=== PATIENT | female | born 1925 | race Caucasian/White ===

== ENCOUNTER 2016-07-11 20:23 | Inpatient (IN) | payer MEDICARE ==
[~2016-07-11] VITALS: Ht 157.5 cm; Wt 59.6 kg
[~2016-07-11 20:23] MED LIST: BUME1TAB PO; CARV6.252 PO; DOCU1CAP39 PO; LEVA500T PO; LISI-363 PO; SIMV10 PO; VITA-13 PO; WARF2TAB PO
[2016-07-11 20:46] VITALS: BP 159/78; PULSE 73; RESP 20; TEMP 97.4; O2SAT 96
[2016-07-11 20:52] VITALS: BP 159/78; PULSE 78; RESP 20; TEMP 97.4; O2SAT 96
[2016-07-11] MEDS ORDERED: SODIUM CHLORIDE 0.9% FLUSH 10 ML FLUSH IVF PRN ×2 (21:30→23:30)
--- NOTE | 2016-07-11 21:37 | PD ---
HPI Chief Complaint: short of breath Time Seen by Provider: 21:19 Travel History International Travel<30 days: No Contact w/Intl Traveler<30days: No Traveled to known affect area: No History of Present Illness HPI The patient is an 89-year-old female who complains of shortness of breath for approximately 2 weeks. She states she can walk about 50 feet and she gets short of breath. She has had bilateral leg edema for about 12 months. She does have a history of congestive heart failure and sees Dr. Horne for her heart problems. Yesterday she was started on hydralazine for her blood pressure. She does take Coumadin for her chronic atrial fibrillation. For the past 2 weeks he has had some chest discomfort. She denies any nausea or vomiting now but states when she was coughing she did get slightly nauseated. She does not smoke. She does not have any orthopnea. She denies any fever. She states she is taking her Bumex correctly. She does have a history of renal problems. She does have a pacemaker. The patient's cough is very minimal and is nonproductive. She denies any chills. She states she had her pneumonia shot. PFSH Past Medical History Hx Anticoagulant Therapy: Yes (COUMADIN ) Arthritis: Yes Autoimmune Disease: No Heart Rhythm Problems: No Cancer: No Cardiovascular Problems: Yes High Cholesterol: Yes Chest Pain: No Congestive Heart Failure: Yes Diminished Hearing: No Endocrine: No Genitourinary: Yes Hypertension: Yes Immune Disorder: No Kidney Stones: No Medical other: Yes (LUMPECTOMY LEFT BREAST) Musculoskeletal: Yes Neurologic: Yes Psychiatric: No Reproductive: No Respiratory: No Integumentary: Yes (SKIN CA OF NOSE - RECIEVING RADIATION THERAPY) Radiation Therapy: Yes (SKIN CA OF NOSE - CURRENT) Renal Failure: Yes (RENAL ARTERY ANGIOPLASTY ) Tetanus Vaccination: Unknown Influenza Vaccination: Yes ?: Not Past Surgical History Abdominal Surgery: No Body Medical Devices: "shims" in her back between a few discs" Cardiac Surgery: Yes (SURGERY ON CAROTID ARTERIES bilateral ) Coronary Stent: Yes (LEFT AND RIGHT CAROTID) Ear Surgery: No Eye Surgery: Yes (RIGHT CATARACT) Genitourinary Surgery: Yes (RENAL ARTERY ANGIOPLASTY) Gynecologic Surgery: Yes (HYSTERECTOMY) Hysterectomy: Yes Oral Surgery: No Pacemaker: Yes Thoracic Surgery: No Tonsillectomy: Yes Other Surgery: Yes (L. LUMPECTOMY ) Social History Alcohol Use: No Tobacco Use: No Substance Use: No Allergies-Medications (Allergen,Severity, Reaction): Uncoded Allergies: AMLOPDIPINE (Allergy, Severe, Swelling, 07/11/16) Reported Meds & Prescriptions Reported Meds & Active Scripts Active Reported Latanoprost Opth Drops (Latanoprost) 0.005% Drops 1 Drop EACH EYE HS Refrigerate until opened. Preservision Areds 2 (Multiple Vitamins W/ Minerals) 1 Cap 1 Cap PO DAILY Vitamin D-1000 (Cholecalciferol) 1,000 Unit Tab 1,000 Units PO DAILY Warfarin 2 Mg Tab 2 Mg PO DAILY Bumetanide 1 Mg Tab 1 Mg PO DAILY Lisinopril 20 Mg Tab 20 Mg PO BID Carvedilol 12.5 Mg Tab 12 Mg PO BID Hydralazine (Hydralazine HCl) 10 Mg Tab 10 Mg PO TID Take with a meal Review of Systems Except as stated in HPI: all other systems reviewed are Neg Physical Exam Narrative GENERAL: The patient is alert, oriented 3 in no respiratory distress. Her vital signs show blood pressure 159/78 but are otherwise normal. SKIN: Warm and dry. HEAD: Atraumatic. Normocephalic. EYES: Pupils equal and round. No scleral icterus. No injection or drainage. ENT: No nasal bleeding or discharge. Mucous membranes pink and moist. NECK: Trachea midline. No JVD. CARDIOVASCULAR: Regular rhythm with a rate of approximately 70. No murmur appreciated. RESPIRATORY: No accessory muscle use. Clear to auscultation. Breath sounds equal bilaterally. No crackles are heard. GASTROINTESTINAL: Abdomen soft, non-tender, nondistended. Hepatic and splenic margins not palpable. MUSCULOSKELETAL: No obvious deformities. No clubbing. No cyanosis. There is 1 + bilateral lower extremity edema. NEUROLOGICAL: Awake and alert. No obvious cranial nerve deficits. Motor grossly within normal limits. Normal speech. PSYCHIATRIC: Appropriate mood and affect; insight and judgment normal. Data Data Last Documented VS Vital Signs Date Time Temp Pulse Resp B/P Pulse Ox O2 Delivery O2 Flow Rate FiO2 07/11/16 22:34 18 95 Nasal Cannula 2 07/11/16 22:34 66 147/55 07/11/16 20:52 97.4 Orders Electrocardiogram (07/11/16 21:28) B-Type Natriuretic Peptide (07/11/16 21:28) Ckmb (Isoenzyme) Profile (07/11/16 21:28) Complete Blood Count With Diff (07/11/16:) Comprehensive Metabolic Panel (07/11/16:) Magnesium (Mg) (07/11/16:28) Prothrombin Time / Inr (Pt) (07/11/16:28) Troponin I (07/11/16:28) Ecg Monitoring (07/11/16:) Iv Access Insert/Monitor (07/11/16:28) Oximetry (07/11/16:28) Oxygen Administration (07/11/16:) Sodium Chloride 0.9% Flush (Ns Flush) (07/11/16 21:30) Chest, Pa & Lat (07/11/16:28) Bumetanide Inj (Bumex Inj) (07/11/16 21:45) CKMB (07/11/16 21:10) CKMB% (07/11/16 21:10) Labs Laboratory Tests Test 07/11/16 21:10 White Blood Count 9.1 TH/MM3 Red Blood Count 3.71 MIL/MM3 Hemoglobin 11.7 GM/DL Hematocrit 34.6 % Mean Corpuscular Volume 93.2 FL Mean Corpuscular Hemoglobin 31.5 PG Mean Corpuscular Hemoglobin 33.8 % Concent Red Cell Distribution Width 13.7 % Platelet Count 144 TH/MM3 Mean Platelet Volume 8.0 FL Neutrophils (%) (Auto) 68.4 % Lymphocytes (%) (Auto) 16.6 % Monocytes (%) (Auto) 13.9 % Eosinophils (%) (Auto) 0.7 % Basophils (%) (Auto) 0.4 % Neutrophils # (Auto) 6.2 TH/MM3 Lymphocytes # (Auto) 1.5 TH/MM3 Monocytes # (Auto) 1.3 TH/MM3 Eosinophils # (Auto) 0.1 TH/MM3 Basophils # (Auto) 0.0 TH/MM3 CBC Comment DIFF FINAL Differential Comment Prothrombin Time 43.6 SEC Prothromb Time International 3.7 RATIO Ratio Sodium Level 131 MEQ/L Potassium Level 3.6 MEQ/L Chloride Level 92 MEQ/L Carbon Dioxide Level 26.1 MEQ/L Anion Gap 13 MEQ/L Blood Urea Nitrogen 19 MG/DL Creatinine 1.00 MG/DL Estimat Glomerular Filtration 52 ML/MIN Rate Random Glucose 103 MG/DL Calcium Level 9.1 MG/DL Magnesium Level 1.6 MG/DL Total Bilirubin 1.7 MG/DL Aspartate Amino Transf 32 U/L (AST/SGOT) Alanine Aminotransferase 17 U/L (ALT/SGPT) Alkaline Phosphatase 114 U/L Total Creatine Kinase 101 U/L Creatine Kinase MB 1.3 NG/ML Troponin I 0.02 NG/ML B-Type Natriuretic Peptide 896 PG/ML Total Protein 7.0 GM/DL Albumin 3.3 GM/DL [facility] Medical Decision Making Medical Screen Exam Complete: Yes Emergency Medical Condition: Yes Medical Record Reviewed: Yes Interpretation(s) The EKG shows ventricular pacing at a rate of approximately [address] elevation or depression. The troponin I is normal and the cardiac enzymes are normal. The BNP is 896. The complete metabolic profile shows a sodium of 131, BUN 19, total bilirubin of 1.7 and albumen of 3.3 but is otherwise unremarkable. The CBC shows a hematocrit of 34.6 and platelet count of 144,000 but is otherwise unremarkable. The chest x-ray was compared to October 182015 and this shows an interval development of bilateral pleural effusions and right lung base consolidation/compressive collapse. Differential Diagnosis Congestive heart failure, anemia, electrolyte disorder, acute coronary syndrome , other metabolic disorder, pneumonia, pulmonary embolushighly unlikely Narrative Course The pleural effusions and consolidation are significant. The patient does have shortness of breath and this is likely to be from congestive heart failure and did not pneumonia. Patient denies any history of fever or cough. Plan: The patient was discussed with Michael JARRELL and he instructed me to 23 hour observation the patient to Dr. Adan. Diagnosis Primary Impression: CHF (congestive heart failure) Additional Impressions: Bilateral pleural effusion Atelectasis of right lung Exertional dyspnea Admitting Information Admitting Physician Requests: Observation Perfecto Isaacs MD Jul 11, 2016 21:37
[2016-07-11] MEDS ORDERED: VITA1000 PO (21:44)
[2016-07-11] MEDS ORDERED: HYDR10TA23 PO (21:44)
[2016-07-11] MEDS ORDERED: CARV12.52 PO (21:44)
[2016-07-11] MEDS ORDERED: LATA0.002 EACH EYE (21:44)
[2016-07-11] MEDS ORDERED: PRESCAP5 PO (21:44)
[2016-07-11] MEDS ORDERED: WARF4TAB51 PO (21:44)
[2016-07-11] MEDS ORDERED: BUME1TAB PO (21:44)
[2016-07-11] MEDS ORDERED: LISI-515 PO (21:44)
[2016-07-11 21:45] VITALS: O2SAT 93
[2016-07-11] MEDS ORDERED: BUMETANIDE INJ 1 MG/4 ML VIAL IV PUSH ONE (21:45)
[2016-07-11 21:51] LABS: AUTOMATED NEUTROPHIL # 6.2 TH/MM3 (1.8-7.7); BASOPHIL % 0.4 % (0.0-2.0); EOSINOPHIL # 0.1 TH/MM3 (0-0.4); EOSINOPHIL % 0.7 % (0.0-4.0); HEMATOCRIT 34.6 % (35.0-46.0); HEMO FLAGS DIFF FINAL; LYMPH % 16.6 % (9.0-44.0); LYMPHOCYTE # 1.5 TH/MM3 (1.0-4.8); MEAN CELL VOLUME 93.2 FL (80.0-100.0); MEAN CORPUSCULAR HEMOGLOBIN 31.5 PG (27.0-34.0); MEAN CORPUSCULAR HGB CONC 33.8 % (32.0-36.0); MONO % 13.9 % (0.0-8.0); NEUT % 68.4 % (16.0-70.0); PLATELET COUNT 144 TH/MM3 (150-450); RED BLOOD COUNT 3.71 MIL/MM3 (4.00-5.30); RED CELL DISTRIBUTION WIDTH 13.7 % (11.6-17.2); WHITE BLOOD COUNT 9.1 TH/MM3 (4.0-11.0)
[2016-07-11 22:00] LABS: CHLORIDE 92 MEQ/L (98-107); POTASSIUM 3.6 MEQ/L (3.5-5.1); SODIUM (NA) 131 MEQ/L (136-145)
[2016-07-11 22:02] VITALS: BP 125/57; PULSE 63; RESP 20; O2SAT 94
[2016-07-11 22:03] LABS: ANION GAP 13 MEQ/L (5-15); BICARBONATE 26.1 MEQ/L (21.0-32.0); BLOOD UREA NITROGEN 19 MG/DL (7-18); MAGNESIUM 1.6 MG/DL (1.5-2.5)
[2016-07-11 22:06] LABS: ALT (GPT) 17 U/L (10-53); AST (GOT) 32 U/L (15-37); GLOMERULAR FILTRATION RATE 52 ML/MIN (>89)
[2016-07-11 22:08] LABS: TOTAL BILIRUBIN ADULT 1.7 MG/DL (0.2-1.0)
[2016-07-11 22:09] LABS: ALKALINE PHOSPHATASE 114 U/L (45-117); CREATINE KINASE 101 U/L (26-192)
[2016-07-11 22:21] LABS: CKMB 1.3 NG/ML (0.5-3.6)
--- NOTE | 2016-07-11 22:25 | RADHPO ---
EXAM DATE/TIME: 07/11/2016 21:42 [facility] COMPARISON: CHEST SINGLE AP, October 19, 2015, 16:56. INDICATIONS : Patient states short of breath since change in blood pressure medication. MEDICAL HISTORY : Hypertension. Cancer, skin SURGICAL HISTORY : Pacemaker. ENCOUNTER: Initial ACUITY: 2 weeks PAIN SCORE: 2/10 LOCATION: Bilateral chest FINDINGS: There is a moderately size right pleural effusion and small left pleural effusion not present previou sly. Pacer wire and cardiomegaly have not changed. Right lung base consolidation and/or compressive c ollapse is also seen. CONCLUSION: Interval development of bilateral pleural effusions and right lung base consolidation and/or compress ander collapse. Anne Robledo MD on July 11, 2016 at 22:21 Board Certified Radiologist. This report was verified electronically.
[2016-07-11 22:34] VITALS: BP 147/55; PULSE 66; RESP 16; O2SAT 95
[2016-07-11 22:52] LABS: INTERNATIONAL NORMALIZED RATIO 3.7 RATIO; PROTHROMBIN TIME - PATIENT 43.6 SEC (9.8-11.6)
[2016-07-11] MEDS ORDERED: BUMETANIDE 1 MG TAB PO ONE (23:15)
[2016-07-11] MEDS ORDERED: SODIUM CHLORIDE 0.9% FLUSH 10 ML FLUSH IV FLUSH PRN (23:15)
[2016-07-12] VITALS (12 sets, daily range): BP systolic 133–154; BP diastolic 63–81; PULSE 65–71; RESP 16–20; TEMP 96.2–97.8; O2SAT 92–96
[2016-07-12 06:57] LABS: CHLORIDE 94 MEQ/L (98-107); SODIUM (NA) 133 MEQ/L (136-145)
[2016-07-12 07:03] LABS: ANION GAP 10 MEQ/L (5-15); BICARBONATE 28.6 MEQ/L (21.0-32.0); BLOOD UREA NITROGEN 20 MG/DL (7-18); MAGNESIUM 1.5 MG/DL (1.5-2.5)
[2016-07-12 07:06] LABS: ALT (GPT) 14 U/L (10-53); AST (GOT) 33 U/L (15-37)
[2016-07-12 07:07] LABS: GLOMERULAR FILTRATION RATE 55 ML/MIN (>89)
[2016-07-12 07:08] LABS: TOTAL BILIRUBIN ADULT 1.5 MG/DL (0.2-1.0)
[2016-07-12 07:09] LABS: ALKALINE PHOSPHATASE 98 U/L (45-117)
[2016-07-12 07:15] LABS: INTERNATIONAL NORMALIZED RATIO 3.5 RATIO; PROTHROMBIN TIME - PATIENT 40.8 SEC (9.8-11.6)
[2016-07-12 07:23] LABS: POTASSIUM 3.6 MEQ/L (3.5-5.1)
[2016-07-12] MEDS ORDERED: BUMETANIDE INJ 1 MG/4 ML VIAL IV PUSH ONE (07:45)
--- NOTE | 2016-07-12 07:52 | MB ---
cc: WENDY CONNELLY MD DATE OF CONSULTATION 07/12/2016 REASON FOR CONSULTATION CHF and dyspnea. HISTORY OF PRESENT ILLNESS Ms. Chirinos is an 89-year-old female who does have a history of hypertension, hyperlipidemia, CAD, atrial fibrillation. She presented with progressive shortness of breath, edema and weight gain over the last period two to three weeks. She notes that this started after the amlodipine was added to her medication regimen. The amlodipine was stopped several days ago and hydralazine was started. Her blood pressure is good. However, she continued to have progressive symptoms and thus presented to the emergency room. She denies any chest pain or palpitations. PAST MEDICAL HISTORY 1. Hypertension. 2. Hyperlipidemia. 3. CHF. 4. CAD. 5. Atrial fibrillation. 6. Chronic kidney disease. 7. Valvular heart disease. 8. Bilateral carotid endarterectomies. 9. Renal stents. 10. Lumpectomy. 11. Cataract surgery. ALLERGIES No known drug allergies. OUTPATIENT MEDICATIONS 1. Lisinopril 20 mg b.i.d. 2. Coumadin 2 mg a day. 3. Coreg 12.5 mg a day. 4. Hydralazine 10 mg q. 8. 5. Bumex 1 mg daily. 6. Vitamins. 7. Lantanaprost. 8. Vitamin D. SOCIAL HISTORY The patient is a former smoker. FAMILY HISTORY Positive for CAD. REVIEW OF SYSTEMS The patient has had a nonproductive cough. Other than this and what is mentioned in the HPI, all 12 systems are negative. PHYSICAL EXAMINATION VITAL SIGNS: 68, 136/63, 94. GENERAL: She is a thin female who is in no apparent distress. NECK: Her neck is free from JVD. LUNGS: Rales on the left base. CARDIOVASCULAR EXAMINATION: She has a 2/6 systolic murmur. No rubs or gallops are appreciated. ABDOMEN: The abdomen is soft. EXTREMITIES: The extremities have 1+ edema. LAB VALUES Significant for a BNP of 896. Troponin of 0.03. Sodium of 131 and a creatinine of 1.0. CHEST X-RAY Bilateral pleural effusions and a right lung base consolidation. EKG Shows paced rhythm. IMPRESSIONS Dyspnea- component CHF, consider possible contributions from COPD vs bronchitis vs pneumonia vs other Acute CHF - We will continue diuresis. Fluid and sodium restrictions will be added. The patient is currently on a beta-carlos. I do not have an ECHO from the office or see on from the hospital => ECHO. Priscila Lion/JAKI /7:28 AM /7:37 AM ROSIO
[2016-07-12] MEDS: CHOLECALCIFEROL (VIT D3) 1000 UNIT TAB PO SCH (08:20)
[2016-07-12] MEDS: LISINOPRIL 20 MG TAB PO SCH ×2 (08:20→21:29)
[2016-07-12] MEDS: POTASSIUM CHLORIDE 10 MEQ CONTROLLED RELEASE TAB PO SCH ×2 (08:21→21:29)
[2016-07-12] MEDS: hydrALAZINE HCL 10 MG TAB PO SCH ×3 (08:23→21:29)
[2016-07-12] MEDS: SODIUM CHLORIDE 0.9% FLUSH 10 ML FLUSH IVF SCH ×2 (08:23→21:29)
[2016-07-12] MEDS ORDERED: DO NOT ADM ANY ANTICOAGULANT DRUGS XX PRN (08:45)
[2016-07-12] MEDS ORDERED: hydrALAZINE HCL 10 MG TAB PO SCH (09:00)
[2016-07-12] MEDS ORDERED: SODIUM CHLORIDE 0.9% FLUSH 10 ML FLUSH IVF SCH (09:00)
[2016-07-12] MEDS ORDERED: CARVEDILOL 12.5 MG TAB PO SCH (09:00)
--- NOTE | 2016-07-12 11:22 | MH ---
cc: ZEFERINO COY MD DATE OF ADMISSION 07/11/2016 CHIEF COMPLAINT Shortness of breath HISTORY OF PRESENT ILLNESS This is an 89-year-old female with a past medical-surgical history significant for arthritis, history of hyperlipidemia, congestive heart failure, lumpectomy of the left breast, history of hypertension, history of skin cancer of the nose treated with received radiation therapy, renal artery angioplasty, surgery for the carotid artery bilateral, right cataract surgery, hysterectomy, left lumpectomy, tonsillectomy, pacemaker placement who came to the ER at [facility] complaining of shortness of breath going on for the last two weeks. She stated that she can walk about 50 feet and gets short of breath. She has had bilateral leg edema for about 12 months. She does have a history of congestive heart failure and sees Dr. Horne. She was started on hydralazine for her blood pressure. She does take Coumadin for chronic atrial fibrillation. She has some chest discomfort. She denies any nausea or vomiting, but states when she is coughing, she did get slightly nauseated. She does not smoke. She does not have any orthopnea. She denies any fever or chills. She is taking her Bumex regularly. She does have a history of renal problems, has a pacemaker placement. She has a very minimal nonproductive cough. Other than that, nothing significant. PAST MEDICAL/SURGICAL HISTORY As dictated above. SOCIAL HISTORY She denies smoking, drinking or taking any drugs. Lives at home alone. 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 FAMILY HISTORY Significant for coronary artery disease. ALLERGIES AMLODIPINE MEDICATIONS Include: 1. Latanoprost ophthalmic drops one drop each eye at bedtime 2. PreserVision AREDS 3. Multivitamin p.o. daily 4. Vitamin D 1000 units p.o. daily 5. Coumadin 2 mg p.o. daily 6. Bumetanide 1 mg p.o. daily 7. Lisinopril 20 mg twice a day 8. Carvedilol 12.5 mg twice a day 9. Hydralazine 10 mg p.o. t.i.d. REVIEW OF SYSTEMS Positive for shortness of breath, mild cough, nonproductive, but when I examined the patient, she feels much better. PHYSICAL EXAMINATION This is an 89-year female sitting on the bed not in acute distress. VITAL SIGNS: Temperature 96.8, heart rate 68, respiration 20, blood pressure 147/72, O2 saturation 95% on two liters nasal cannula. HEENT: Normocephalic, atraumatic. EOMI. PERRL. Oral mucosa moist. NECK: Supple. No visible thyromegaly or neck mass. Trachea is central. CARDIOVASCULAR: Regular rate and rhythm. Respirations, bilaterally mild crackles, decreased air entry bilaterally. ABDOMEN: Soft, nontender. Bowel sounds audible. EXTREMITIES: No cyanosis or clubbing. Full range of motion of all extremities. NEUROLOGIC: Awake, alert and oriented x4. No focal deficits. SKIN: Warm and dry. PSYCH: The patient is cooperative. Mood and affect are normal. LABORATORY DATA CBC shows a WBC count of 9.1, RBC count 3.71 low, hemoglobin 11.7, hematocrit 34.6 low, platelet count 144 low. BMP totally unremarkable except for sodium 133 low, chloride 94 low, BUN 20 high, GFR 55 low, glucose random 73 low, total bilirubin 1.5 high, total protein 6.2 low, albumin 2.9 low. Cardiogram Troponin I is 0.02, 0.03, and 0.03. PT 40.8, INR 3.5. Chest x-ray was done shows interval development of bilateral pleural effusion and right lung base consolidation and/or compressive collapse. ASSESSMENT/PLAN 1. This is an 89-year female who came to the ER diagnosed with shortness of breath most probably secondary to CHF exacerbation, most likely acute on chronic systolic heart failure. Strict I's and O's, daily weights, fluid restriction to 1.5 liters a day, salt restriction to 2 grams a day. The patient is on a beta carlos, checking 2-D echocardiogram, cardiology on the case. Further recommendation per cardiology. 2. History of atrial fibrillation rate controlled. The patient is on Coumadin. INR 3.5, holding Coumadin. 3. He has a history of hypertension. Continue home medication. Monitor blood pressure. 4. Hyponatremia, we will monitor sodium and replace. 5. DVT prophylaxis. The patient is on Coumadin. 6. GI prophylaxis, Protonix 40 mg p.o. daily. 7. We are going to manage the patient on a daily basis and make recommendations on a daily basis. Zeferino Coy MD EA/ASHLEY /10:53 AM /11:09 AM
--- NOTE | 2016-07-12 11:42 | EKG ---
Date Performed: 07/11/2016 Time Performed: 21:42:38 PTAGE: 89 years EKG: Ventricular pacing Pacemaker rhythm - no further analysis Abnormal ECG PREVIOUS TRACING : 10/17/2015 11.59 DOCTOR: Jose Soni Interpretating Date/Time 07/12/2016 11:41:50
[2016-07-12] MEDS: MULTIVITAMINS/MINERALS THERAPEUTIC TAB PO SCH (12:31)
[2016-07-12] MEDS: BUMETANIDE 1 MG TAB PO SCH (12:32)
[2016-07-12] MEDS: PANTOPRAZOLE SOD 40 MG DELAYED RELEASE TAB PO SCH (12:32)
--- NOTE | 2016-07-12 20:02 | EC ---
Study Study Date:07/12/2016 STUDY CONCLUSIONS SUMMARY - Left ventricle: The cavity size was normal. Wall thickness was normal. Systolic function was normal. The estimated ejection fraction was 60%. Wall motion was normal; there were no regional wall motion abnormalities. - Mitral valve: Mild to moderate regurgitation. - Left atrium: The atrium was dilated. - Right ventricle: The cavity size was dilated. Wall thickness was normal. - Right atrium: The atrium was dilated. - Tricuspid valve: Severe regurgitation. - Pulmonary arteries: Systolic pressure was mildly increased. PA peak pressure: 46mm Hg (S). If LV function is below 40, please consider prescribing an ACEI or ARB or document rationale for non-use. PROCEDURE DATA STUDY STATUS: Elective. Procedure: Transthoracic echocardiography. Image quality was good. Scanning was performed from the parasternal, apical, and subcostal acoustic windows. Study completion: The patient tolerated the procedure well. Transthoracic echocardiography. M-mode, complete 2D, complete spectral Doppler, and color Doppler. Height: Height: 62in. Weight: Weight: 134.7lb. Body mass index: BMI: 24.7kg/m^2. Body surface area: BSA: 1.62m^2. Patient status: Inpatient. CARDIAC ANATOMY LEFT VENTRICLE: The cavity size was normal. Wall thickness was normal. Systolic function was normal. The estimated ejection fraction was 60%. Wall motion was normal; there were no regional wall motion abnormalities. AORTIC VALVE: Trileaflet; normal thickness leaflets. Doppler: Transvalvular velocity was within the normal range. There was no stenosis. No regurgitation. Valve area: 1.06cm^2 (Vmax). Indexed valve area: 0.65cm^2/m^2 (Vmax). Mean gradient: 4mm Hg (S). Peak gradient: 15mm Hg (S). AORTA: Aortic root: The aortic root was normal in size. MITRAL VALVE: Structurally normal valve. Doppler: Transvalvular velocity was within the normal range. There was no evidence for stenosis. Mild to moderate regurgitation. LEFT ATRIUM: The atrium was dilated. RIGHT VENTRICLE: The cavity size was dilated. Wall thickness was normal. PULMONIC VALVE: Doppler: Transvalvular velocity was within the normal range. There was no evidence for stenosis. No regurgitation. TRICUSPID VALVE: Structurally normal valve. Doppler: Transvalvular velocity was within the normal range. Severe regurgitation. PULMONARY ARTERY: The main pulmonary artery was normal-sized. Systolic pressure was mildly increased. RIGHT ATRIUM: The atrium was dilated. PERICARDIUM: There was no pericardial effusion. SYSTEMIC VEINS: Inferior vena cava: The vessel was normal in size. Patient weight: 134.7lb _Ejection fraction:_ 65-75% _Fractional shortening:_ 32% up to 5Kg 5-11.5Kg 11.6-22.9Kg 23-45Kg 45-57Kg Aortic Root 7-13 <17 13-22 17-27 17-27 LA diam 6-13 <23 24-38 33-47 37-40 RVID 10-17 7-15 7-15 7-18 8-17 LVIDd 12-22 <32 24-38 33-47 37-40 LVPW 2-4 3-6 5-7 6-8 7-8 IVS 2-4 3-6 5-7 6-8 7-8 BASIC MEASUREMENTS ADULT NORMAL Left ventricle LV internal dimension, ED, chordal *39.2 mm 43-52 level, PLAX LV internal dimension, ES, chordal 29 mm 23-38 level, PLAX Fractional shortening, chordal level, *26 % >29 PLAX LV posterior wall thickness, ED 10.1 mm IVS/LVPW ratio, ED 1.04 <1.3 Ventricular septum Septal thickness, ED 10.5 mm Aortic valve Leaflet separation *13 mm 15-26 BASIC MEASUREMENTS ADULT NORMAL Aortic valve Leaflet separation *13 mm 15-26 Aorta Root diameter, ED 27 mm 20-37 Left atrium Anterior-posterior dimension, ES *56 mm 19-40 Anterior-posterior dimension index, ES *3.46 cm/m^2 <2.2 LA/aortic root ratio 2.07 DOPPLER MEASUREMENTS ADULT NORMAL Main pulmonary artery Pressure, S *46 mm Hg =30 Aortic valve Peak velocity, S 194 cm/s Mean velocity, S 97.9 cm/s VTI, S 29.6 cm Mean gradient, S 4 mm Hg Peak gradient, S 15 mm Hg Valve area, Vmax 1.06 cm^2 Valve area index, Vmax 0.65 cm^2/m^2 Mitral valve Peak E-wave velocity 48.9 cm/s Peak A-wave velocity 111 cm/s Deceleration time *141 ms 150-230 Peak E/A ratio 0.4 Maximal regurgitant velocity 497 cm/s Tricuspid valve Regurgitant peak velocity 276 cm/s Peak RV-RA gradient, S 30 mm Hg Maximal regurgitant velocity 276 cm/s Systemic veins Estimated CVP 10 mm Hg Right ventricle RV pressure, S *46 mm Hg <30 Pulmonic valve Peak velocity, S 85.5 cm/s LEGEND: Mean values are shown as u=mean value. Asterisk (*) francois values outside specified normal range. Prepared and signed by Mary Miller [id number]
[2016-07-12] MEDS: LATANOPROST 0.005% OPHT SOLN 2.5 ML BTL EACH EYE SCH (21:28)
[2016-07-12] MEDS: CARVEDILOL 12.5 MG TAB PO SCH (21:29)
[2016-07-13] VITALS (7 sets, daily range): BP systolic 106–167; BP diastolic 66–88; PULSE 67–80; RESP 18–20; TEMP 95.8–97.6; O2SAT 90–100
[2016-07-13 05:50] LABS: AUTOMATED NEUTROPHIL # 3.6 TH/MM3 (1.8-7.7); BASOPHIL % 0.2 % (0.0-2.0); EOSINOPHIL # 0.1 TH/MM3 (0-0.4); EOSINOPHIL % 2.4 % (0.0-4.0); HEMATOCRIT 32.3 % (35.0-46.0); HEMO FLAGS DIFF FINAL; LYMPH % 21.4 % (9.0-44.0); LYMPHOCYTE # 1.3 TH/MM3 (1.0-4.8); MEAN CELL VOLUME 93.7 FL (80.0-100.0); MEAN CORPUSCULAR HEMOGLOBIN 31.3 PG (27.0-34.0); MEAN CORPUSCULAR HGB CONC 33.5 % (32.0-36.0); MONO % 16.4 % (0.0-8.0); NEUT % 59.6 % (16.0-70.0); PLATELET COUNT 134 TH/MM3 (150-450); RED BLOOD COUNT 3.45 MIL/MM3 (4.00-5.30); RED CELL DISTRIBUTION WIDTH 13.4 % (11.6-17.2)
[2016-07-13 06:09] LABS: CHLORIDE 94 MEQ/L (98-107); POTASSIUM 3.6 MEQ/L (3.5-5.1); SODIUM (NA) 132 MEQ/L (136-145)
[2016-07-13 06:16] LABS: ANION GAP 10 MEQ/L (5-15)
[2016-07-13 06:17] LABS: BLOOD UREA NITROGEN 23 MG/DL (7-18); INTERNATIONAL NORMALIZED RATIO 3.7 RATIO; PROTHROMBIN TIME - PATIENT 43.9 SEC (9.8-11.6)
[2016-07-13 06:18] LABS: AST (GOT) 28 U/L (15-37)
[2016-07-13 06:19] LABS: ALT (GPT) 15 U/L (10-53)
[2016-07-13 06:20] LABS: GLOMERULAR FILTRATION RATE 55 ML/MIN (>89); TOTAL BILIRUBIN ADULT 1.3 MG/DL (0.2-1.0)
[2016-07-13 06:21] LABS: ALKALINE PHOSPHATASE 105 U/L (45-117)
[2016-07-13] MEDS: hydrALAZINE HCL 10 MG TAB PO SCH ×3 (06:23→21:33)
--- NOTE | 2016-07-13 08:40 | HHI.PR ---
Subjective History of Present Illness Patient feel better no acute issue SOB Better d/w RN Marian stoner DC Tomorrow. Review of Systems Constitutional Constitutional: Fatigue, Weakness Vitals/Results Intake & Output 07/12/16 07/12/16 07/13/16 15:00 23:00 07:00 Intake Total 240 ml Balance 240 ml Intake Oral 240 ml # Voids 4 5 # Bowel Movements 0 0 Vital Signs Vital Signs Date Time Temp Pulse Resp B/P Pulse Ox O2 Delivery O2 Flow Rate FiO2 07/13/16 08:23 92 21 07/13/16 04:00 97.1 69 18 147/77 93 07/13/16 00:00 97.1 80 18 149/85 96 07/12/16 23:10 93 21 07/12/16 20:00 97.4 67 18 154/79 96 07/12/16 20:00 66 07/12/16 16:00 96.2 71 20 147/81 92 07/12/16 15:00 66 07/12/16 12:00 96.9 65 20 133/63 93 CBC/BMP: 07/13/16 0530 07/13/16 0530 Lab Results Laboratory Tests Test 07/12/16 07/13/16 09:40 05:30 Troponin I 0.03 NG/ML White Blood Count 6.0 TH/MM3 Red Blood Count 3.45 MIL/MM3 Hemoglobin 10.8 GM/DL Hematocrit 32.3 % Mean Corpuscular Volume 93.7 FL Mean Corpuscular Hemoglobin 31.3 PG Mean Corpuscular Hemoglobin 33.5 % Concent Red Cell Distribution Width 13.4 % Platelet Count 134 TH/MM3 Mean Platelet Volume 7.5 FL Neutrophils (%) (Auto) 59.6 % Lymphocytes (%) (Auto) 21.4 % Monocytes (%) (Auto) 16.4 % Eosinophils (%) (Auto) 2.4 % Basophils (%) (Auto) 0.2 % Neutrophils # (Auto) 3.6 TH/MM3 Lymphocytes # (Auto) 1.3 TH/MM3 Monocytes # (Auto) 1.0 TH/MM3 Eosinophils # (Auto) 0.1 TH/MM3 Basophils # (Auto) 0.0 TH/MM3 CBC Comment DIFF FINAL Differential Comment Prothrombin Time 43.9 SEC Prothromb Time International 3.7 RATIO Ratio Sodium Level 132 MEQ/L Potassium Level 3.6 MEQ/L Chloride Level 94 MEQ/L Carbon Dioxide Level 28.0 MEQ/L Anion Gap 10 MEQ/L Blood Urea Nitrogen 23 MG/DL Creatinine 0.96 MG/DL Estimat Glomerular Filtration 55 ML/MIN Rate Random Glucose 80 MG/DL Calcium Level 8.6 MG/DL Total Bilirubin 1.3 MG/DL Aspartate Amino Transf 28 U/L (AST/SGOT) Alanine Aminotransferase 15 U/L (ALT/SGPT) Alkaline Phosphatase 105 U/L Total Protein 6.3 GM/DL Albumin 3.0 GM/DL Physical Exam General General Appearance: No Acute Distress, Comfortable Eyes Eye Exam: Pupils Equal, Pupils Reactive, Sclera White, Extraocular Movement Intact Throat Throat Exam: Oral Mucosa Kake & Moist Neck Neck Exam: Neck Supple, Trachea Midline Pulmonary Resp Exam: Clear Bilaterally, Breath Sounds Equal, Diminished Breath Sounds Cardiology CV Exam: Regular, Normal Sinus Rhythm Gastrointestinal/Abdomen GI Exam: Soft, Non-Tender, Bowel Sounds Present Musculoskeletal MS Exam: Normal Tone Integumentary Skin Exam: Clear, Warm, Dry, Intact Neurologic Neuro Exam: Alert, Awake, Oriented, Speech Clear, Moving All Extremities, No Focal Deficits Psychiatric Psych Exam: Appropriate Responses PUD Prophylasis PUD Prophylaxis: Protonix Assessment/Plan Assessment/Plan ASSESSMENT/PLAN 1. This is an 89-year female who came to the ER diagnosed with shortness of breath most probably secondary to CHF exacerbation, most likely acute on chronic systolic heart failure. Strict I's and O's, daily weights, fluid restriction to 1.5 liters a day, salt restriction to 2 grams a day. The patient is on a beta carlos, checked 2-D echocardiogram, cardiology on the case. Further recommendation per cardiology. 2. History of atrial fibrillation rate controlled. The patient is on Coumadin. INR 3.5, holding Coumadin. 3. He has a history of hypertension. Continue home medication. Monitor blood pressure. 4. Hyponatremia, we will monitor sodium and replace. 5. DVT prophylaxis. The patient is on Coumadin. 6. GI prophylaxis, Protonix 40 mg p.o. daily. 7. We are going to manage the patient on a daily basis and make recommendations on a daily basis. Discussed Condition with: Patient Zeferino Muniz MD Jul 13, 2016 08:39
[2016-07-13] MEDS: CHOLECALCIFEROL (VIT D3) 1000 UNIT TAB PO SCH (08:54)
[2016-07-13] MEDS: POTASSIUM CHLORIDE 10 MEQ CONTROLLED RELEASE TAB PO SCH ×2 (08:54→21:33)
[2016-07-13] MEDS: LISINOPRIL 20 MG TAB PO SCH ×2 (08:55→21:33)
[2016-07-13] MEDS: BUMETANIDE 1 MG TAB PO SCH (08:55)
[2016-07-13] MEDS: CARVEDILOL 12.5 MG TAB PO SCH ×2 (08:55→21:33)
[2016-07-13] MEDS: PANTOPRAZOLE SOD 40 MG DELAYED RELEASE TAB PO SCH (08:55)
[2016-07-13] MEDS: SODIUM CHLORIDE 0.9% FLUSH 10 ML FLUSH IVF SCH ×2 (08:55→21:00)
[2016-07-13] MEDS: MULTIVITAMINS/MINERALS THERAPEUTIC TAB PO SCH (08:55)
[2016-07-13] MEDS ORDERED: WARFARIN SOD 2 MG TAB PO SCH (16:00)
[2016-07-13] MEDS ORDERED: BUMETANIDE 1 MG TAB PO ONE (17:45)
[2016-07-13] MEDS: LATANOPROST 0.005% OPHT SOLN 2.5 ML BTL EACH EYE SCH (22:31)
[2016-07-13] MEDS: TEMAZEPAM 15 MG CAP PO PRN (23:34)
[2016-07-14] VITALS (9 sets, daily range): BP systolic 108–142; BP diastolic 55–71; PULSE 66–86; RESP 18–20; TEMP 96–96.9; O2SAT 90–97
[2016-07-14 06:08] LABS: AUTOMATED NEUTROPHIL # 3.7 TH/MM3 (1.8-7.7); BASOPHIL % 0.7 % (0.0-2.0); EOSINOPHIL # 0.1 TH/MM3 (0-0.4); EOSINOPHIL % 2.2 % (0.0-4.0); HEMATOCRIT 34.1 % (35.0-46.0); HEMO FLAGS DIFF FINAL; LYMPH % 20.6 % (9.0-44.0); LYMPHOCYTE # 1.2 TH/MM3 (1.0-4.8); MEAN CELL VOLUME 93.4 FL (80.0-100.0); MEAN CORPUSCULAR HEMOGLOBIN 31.3 PG (27.0-34.0); MEAN CORPUSCULAR HGB CONC 33.5 % (32.0-36.0); MONO % 14.7 % (0.0-8.0); NEUT % 61.8 % (16.0-70.0); PLATELET COUNT 138 TH/MM3 (150-450); RED BLOOD COUNT 3.65 MIL/MM3 (4.00-5.30); RED CELL DISTRIBUTION WIDTH 13.8 % (11.6-17.2); WHITE BLOOD COUNT 5.9 TH/MM3 (4.0-11.0)
[2016-07-14 06:15] LABS: CHLORIDE 92 MEQ/L (98-107); INTERNATIONAL NORMALIZED RATIO 2.8 RATIO; POTASSIUM 3.5 MEQ/L (3.5-5.1); PROTHROMBIN TIME - PATIENT 32.4 SEC (9.8-11.6); SODIUM (NA) 130 MEQ/L (136-145)
[2016-07-14 06:21] LABS: ANION GAP 10 MEQ/L (5-15); BICARBONATE 28.1 MEQ/L (21.0-32.0); BLOOD UREA NITROGEN 20 MG/DL (7-18)
[2016-07-14 06:24] LABS: ALT (GPT) 16 U/L (10-53); AST (GOT) 29 U/L (15-37); GLOMERULAR FILTRATION RATE 47 ML/MIN (>89)
[2016-07-14 06:26] LABS: TOTAL BILIRUBIN ADULT 1.5 MG/DL (0.2-1.0)
[2016-07-14 06:27] LABS: ALKALINE PHOSPHATASE 104 U/L (45-117)
[2016-07-14] MEDS: hydrALAZINE HCL 10 MG TAB PO SCH ×3 (06:43→21:16)
--- NOTE | 2016-07-14 08:23 | HHI.PR ---
Subjective History of Present Illness Patient feel better no acute issue SOB Better have difficulity swallowing have h/o esophageal stenosis ..GI Consulted. Review of Systems Constitutional Constitutional: Fatigue, Weakness Throat Throat Remarks difficulity swallowing. GI/Abdomen GI/Abdomen Remarks difficulity swallowing. Vitals/Results Intake & Output 07/13/16 07/13/16 07/14/16 14:59 22:59 06:59 Intake Total 700 ml 120 ml 60 ml Output Total 250 ml Balance 700 ml -130 ml 60 ml Intake Oral 700 ml 120 ml 60 ml Output Urine Total 250 ml # Voids 5 2 2 # Bowel Movements 1 0 1 Vital Signs Vital Signs Date Time Temp Pulse Resp B/P Pulse Ox O2 Delivery O2 Flow Rate FiO2 07/14/16 08:00 96.5 75 18 122/68 92 07/14/16 04:00 96.3 86 20 108/71 97 07/14/16 00:00 96.0 74 20 138/71 91 07/13/16 20:00 92 21 07/13/16 20:00 69 07/13/16 20:00 96.0 74 20 167/88 93 07/13/16 16:00 96.0 67 19 158/79 90 07/13/16 12:00 95.8 67 20 126/66 90 CBC/BMP: 07/14/16 0445 07/14/16 0445 Lab Results Laboratory Tests Test 07/14/16 04:45 White Blood Count 5.9 TH/MM3 Red Blood Count 3.65 MIL/MM3 Hemoglobin 11.4 GM/DL Hematocrit 34.1 % Mean Corpuscular Volume 93.4 FL Mean Corpuscular Hemoglobin 31.3 PG Mean Corpuscular Hemoglobin 33.5 % Concent Red Cell Distribution Width 13.8 % Platelet Count 138 TH/MM3 Mean Platelet Volume 7.8 FL Neutrophils (%) (Auto) 61.8 % Lymphocytes (%) (Auto) 20.6 % Monocytes (%) (Auto) 14.7 % Eosinophils (%) (Auto) 2.2 % Basophils (%) (Auto) 0.7 % Neutrophils # (Auto) 3.7 TH/MM3 Lymphocytes # (Auto) 1.2 TH/MM3 Monocytes # (Auto) 0.9 TH/MM3 Eosinophils # (Auto) 0.1 TH/MM3 Basophils # (Auto) 0.0 TH/MM3 CBC Comment DIFF FINAL Differential Comment Prothrombin Time 32.4 SEC Prothromb Time International 2.8 RATIO Ratio Sodium Level 130 MEQ/L Potassium Level 3.5 MEQ/L Chloride Level 92 MEQ/L Carbon Dioxide Level 28.1 MEQ/L Anion Gap 10 MEQ/L Blood Urea Nitrogen 20 MG/DL Creatinine 1.10 MG/DL Estimat Glomerular Filtration 47 ML/MIN Rate Random Glucose 79 MG/DL Calcium Level 9.0 MG/DL Total Bilirubin 1.5 MG/DL Aspartate Amino Transf 29 U/L (AST/SGOT) Alanine Aminotransferase 16 U/L (ALT/SGPT) Alkaline Phosphatase 104 U/L Total Protein 6.6 GM/DL Albumin 3.1 GM/DL Physical Exam General General Appearance: No Acute Distress, Comfortable Eyes Eye Exam: Pupils Equal, Pupils Reactive, Sclera White, Extraocular Movement Intact Throat Throat Exam: Oral Mucosa [place] & Moist Neck Neck Exam: Neck Supple, Trachea Midline Pulmonary Resp Exam: Clear Bilaterally, Breath Sounds Equal, Diminished Breath Sounds Cardiology CV Exam: Regular, Normal Sinus Rhythm Gastrointestinal/Abdomen GI Exam: Soft, Non-Tender, Bowel Sounds Present Musculoskeletal MS Exam: Normal Tone Integumentary Skin Exam: Clear, Warm, Dry, Intact Neurologic Neuro Exam: Alert, Awake, Oriented, Speech Clear, Moving All Extremities, No Focal Deficits Psychiatric Psych Exam: Appropriate Responses PUD Prophylasis PUD Prophylaxis: Protonix Assessment/Plan Assessment/Plan ASSESSMENT/PLAN 1. This is an 89-year female who came to the ER diagnosed with shortness of breath most probably secondary to CHF exacerbation, most likely acute on chronic systolic heart failure. Strict I's and O's, daily weights, fluid restriction to 1.5 liters a day, salt restriction to 2 grams a day. The patient is on a beta carlos, checked 2-D echocardiogram, cardiology on the case. Further recommendation per cardiology. 2. History of atrial fibrillation rate controlled. The patient is on Coumadin. INR 3.5, holding Coumadin. 3. He has a history of hypertension. Continue home medication. Monitor blood pressure. 4. Hyponatremia, we will monitor sodium and replace. 5. DVT prophylaxis. The patient is on Coumadin. 6. GI prophylaxis, Protonix 40 mg p.o. daily. 7. difficulity swallowing have h/o esophageal stenosis ..GI Consulted. We are going to manage the patient on a daily basis and make recommendations on a daily basis. Discussed Condition with: Patient Zeferino Muniz MD Jul 14, 2016 08:23
[2016-07-14] MEDS: CHOLECALCIFEROL (VIT D3) 1000 UNIT TAB PO SCH (09:00)
[2016-07-14] MEDS: SODIUM CHLORIDE 0.9% FLUSH 10 ML FLUSH IVF SCH ×2 (09:00→21:00)
[2016-07-14] MEDS: CARVEDILOL 12.5 MG TAB PO SCH ×2 (09:34→21:16)
[2016-07-14] MEDS: BUMETANIDE 1 MG TAB PO SCH (09:34)
[2016-07-14] MEDS: POTASSIUM CHLORIDE 10 MEQ CONTROLLED RELEASE TAB PO SCH ×2 (09:34→21:16)
[2016-07-14] MEDS: LISINOPRIL 20 MG TAB PO SCH ×2 (09:34→21:16)
[2016-07-14] MEDS: MULTIVITAMINS/MINERALS THERAPEUTIC TAB PO SCH (09:34)
[2016-07-14] MEDS: PANTOPRAZOLE SOD 40 MG DELAYED RELEASE TAB PO SCH (09:34)
--- NOTE | 2016-07-14 16:52 | MB ---
cc: JOSE JEFFERSON M.D., EJAZ MD DATE OF CONSULTATION: 07/14/2016 REASON FOR CONSULTATION: Dysphagia. PATIENT OF: Dr. Zeferino Muniz. HISTORY OF PRESENT ILLNESS: Ms. Chirinos is an 89-year-old lady who has previous problems with gas, bloating and dysphagia and reports previous workup in [place]. She states she had an endoscopy done about two years ago in [place] with dilation and this helped her symptoms. She has been admitted here for shortness of breath secondary to congestive heart failure. The GI service has been consulted for dysphagia. She says each time she eats she feels food gets stuck in the lower part of the esophagus. She is also complaining of gas and bloating. PAST MEDICAL HISTORY: 1. Arthritis. 2. Hyperlipidemia. 3. Congestive heart failure. 4. Hypertension. 5. Skin cancer. 6. Reflux disease. 7. Esophageal strictures PAST SURGICAL HISTORY: 1. Pacemaker placement. 2. Tonsillectomy. 3. Lumpectomy. 4. Hysterectomy. 5. Cataract surgery. 6. Renal artery angioplasty SOCIAL HISTORY: No tobacco and no alcohol reported. FAMILY HISTORY: Noncontributory. ALLERGIES: 1. AMLODIPINE. MEDICINES ON ADMISSION: 1. Eye drops. 2. Coumadin. 3. Bumetanide. 4. Lisinopril. 5. Carvedilol. 6. Hydralazine. REVIEW OF SYSTEMS: Currently she still has some shortness of breath but reports this has improved. The dysphagia is intermittent. PHYSICAL EXAMINATION: GENERAL: The physical exam reveals a well-nourished elderly lady in no apparent distress. VITAL SIGNS: Stable. HEAD AND NECK: Anicteric sclerae. CHEST: Bilateral air entry with rales. ABDOMEN: Abdomen is soft. Nontender. No hepatosplenomegaly. Bowel sounds are present. FARM MECHANIC: Nonfocal. RECTAL: Deferred at this time. LABS: Labs reveal hemoglobin of 11.4. INR is 1.8. Creatinine is 1.1. IMPRESSION: 1. Dysphagia. 2. Reflux disease. RECOMMENDATIONS: 1. Coumadin is currently on hold. 2. Continue to monitor INR. 3. Continue Protonix. 4. EGD with possible dilation planned for early next week. This has been discussed with the patient and she is agreeable. Thank you for this referral. MD PIPPA Adam /3:45 PM /4:46 PM
[2016-07-14] MEDS: LATANOPROST 0.005% OPHT SOLN 2.5 ML BTL EACH EYE SCH (21:15)
[2016-07-15] VITALS (10 sets, daily range): BP systolic 114–141; BP diastolic 62–79; PULSE 60–81; RESP 18–20; TEMP 96–97.7; O2SAT 90–98
[2016-07-15 07:30] LABS: AUTOMATED NEUTROPHIL # 3.4 TH/MM3 (1.8-7.7); BASOPHIL % 0.5 % (0.0-2.0); EOSINOPHIL # 0.1 TH/MM3 (0-0.4); EOSINOPHIL % 2.7 % (0.0-4.0); HEMO FLAGS DIFF FINAL; LYMPH % 20.9 % (9.0-44.0); LYMPHOCYTE # 1.1 TH/MM3 (1.0-4.8); MEAN CELL VOLUME 93.4 FL (80.0-100.0); MEAN CORPUSCULAR HEMOGLOBIN 31.5 PG (27.0-34.0); MEAN CORPUSCULAR HGB CONC 33.8 % (32.0-36.0); MONO % 14.6 % (0.0-8.0); NEUT % 61.3 % (16.0-70.0); PLATELET COUNT 141 TH/MM3 (150-450); RED BLOOD COUNT 3.53 MIL/MM3 (4.00-5.30); RED CELL DISTRIBUTION WIDTH 13.5 % (11.6-17.2); WHITE BLOOD COUNT 5.4 TH/MM3 (4.0-11.0)
[2016-07-15 07:36] LABS: CHLORIDE 92 MEQ/L (98-107); POTASSIUM 3.8 MEQ/L (3.5-5.1); SODIUM (NA) 130 MEQ/L (136-145)
[2016-07-15 07:38] LABS: INTERNATIONAL NORMALIZED RATIO 2.7 RATIO; PROTHROMBIN TIME - PATIENT 30.7 SEC (9.8-11.6)
[2016-07-15 07:40] LABS: ANION GAP 11 MEQ/L (5-15); BICARBONATE 27.3 MEQ/L (21.0-32.0); BLOOD UREA NITROGEN 25 MG/DL (7-18)
[2016-07-15 07:43] LABS: ALT (GPT) 15 U/L (10-53); AST (GOT) 29 U/L (15-37); GLOMERULAR FILTRATION RATE 47 ML/MIN (>89)
[2016-07-15 07:45] LABS: TOTAL BILIRUBIN ADULT 1.3 MG/DL (0.2-1.0)
[2016-07-15 07:46] LABS: ALKALINE PHOSPHATASE 103 U/L (45-117)
[2016-07-15] MEDS: SODIUM CHLORIDE 0.9% FLUSH 10 ML FLUSH IVF SCH ×2 (09:00→22:08)
[2016-07-15] MEDS: CHOLECALCIFEROL (VIT D3) 1000 UNIT TAB PO SCH (09:00)
--- NOTE | 2016-07-15 09:46 | HHI.PR ---
Subjective History of Present Illness Patient feel better no acute issue SOB Better difficulity swallowing have h/o esophageal stenosis ..GI Consulted. Review of Systems Constitutional Constitutional: Fatigue, Weakness Throat Throat Remarks difficulity swallowing. GI/Abdomen GI/Abdomen Remarks difficulity swallowing. Vitals/Results Intake & Output 07/14/16 07/14/16 07/15/16 15:00 23:00 07:00 Intake Total 480 ml 60 ml 60 ml Output Total 325 ml 175 ml Balance 155 ml 60 ml -115 ml Intake Oral 480 ml 60 ml 60 ml Output Urine Total 325 ml 175 ml # Voids 1 1 # Bowel Movements 1 0 0 Vital Signs Vital Signs Date Time Temp Pulse Resp B/P Pulse Ox O2 Delivery O2 Flow Rate FiO2 07/15/16 08:00 96.3 69 18 122/67 94 07/15/16 04:00 96.0 71 20 119/65 94 07/15/16 00:00 97.7 81 20 114/62 96 07/14/16 20:20 93 21 07/14/16 20:17 66 07/14/16 20:00 96.0 71 20 142/71 90 07/14/16 16:00 96.0 67 18 123/66 94 07/14/16 12:00 96.9 67 18 118/55 92 07/14/16 10:59 91 21 CBC/BMP: 07/15/16 0718 07/15/16 0718 Lab Results Laboratory Tests Test 07/15/16 07:18 White Blood Count 5.4 TH/MM3 Red Blood Count 3.53 MIL/MM3 Hemoglobin 11.1 GM/DL Hematocrit 33.0 % Mean Corpuscular Volume 93.4 FL Mean Corpuscular Hemoglobin 31.5 PG Mean Corpuscular Hemoglobin 33.8 % Concent Red Cell Distribution Width 13.5 % Platelet Count 141 TH/MM3 Mean Platelet Volume 7.3 FL Neutrophils (%) (Auto) 61.3 % Lymphocytes (%) (Auto) 20.9 % Monocytes (%) (Auto) 14.6 % Eosinophils (%) (Auto) 2.7 % Basophils (%) (Auto) 0.5 % Neutrophils # (Auto) 3.4 TH/MM3 Lymphocytes # (Auto) 1.1 TH/MM3 Monocytes # (Auto) 0.8 TH/MM3 Eosinophils # (Auto) 0.1 TH/MM3 Basophils # (Auto) 0.0 TH/MM3 CBC Comment DIFF FINAL Differential Comment Prothrombin Time 30.7 SEC Prothromb Time International 2.7 RATIO Ratio Sodium Level 130 MEQ/L Potassium Level 3.8 MEQ/L Chloride Level 92 MEQ/L Carbon Dioxide Level 27.3 MEQ/L Anion Gap 11 MEQ/L Blood Urea Nitrogen 25 MG/DL Creatinine 1.10 MG/DL Estimat Glomerular Filtration 47 ML/MIN Rate Random Glucose 84 MG/DL Calcium Level 8.7 MG/DL Total Bilirubin 1.3 MG/DL Aspartate Amino Transf 29 U/L (AST/SGOT) Alanine Aminotransferase 15 U/L (ALT/SGPT) Alkaline Phosphatase 103 U/L Total Protein 6.3 GM/DL Albumin 2.9 GM/DL Physical Exam General General Appearance: No Acute Distress, Comfortable Eyes Eye Exam: Pupils Equal, Pupils Reactive, Sclera White, Extraocular Movement Intact Throat Throat Exam: Oral Mucosa [place] & Moist Neck Neck Exam: Neck Supple, Trachea Midline Pulmonary Resp Exam: Clear Bilaterally, Breath Sounds Equal, Diminished Breath Sounds Cardiology CV Exam: Regular, Normal Sinus Rhythm Gastrointestinal/Abdomen GI Exam: Soft, Non-Tender, Bowel Sounds Present Musculoskeletal MS Exam: Normal Tone Integumentary Skin Exam: Clear, Warm, Dry, Intact Neurologic Neuro Exam: Alert, Awake, Oriented, Speech Clear, Moving All Extremities, No Focal Deficits Psychiatric Psych Exam: Appropriate Responses PUD Prophylasis PUD Prophylaxis: Protonix Assessment/Plan Assessment/Plan ASSESSMENT/PLAN 1. This is an 89-year female who came to the ER diagnosed with shortness of breath most probably secondary to CHF exacerbation, most likely acute on chronic systolic heart failure. Strict I's and O's, daily weights, fluid restriction to 1.5 liters a day, salt restriction to 2 grams a day. The patient is on a beta carlos, checked 2-D echocardiogram, cardiology on the case. Further recommendation per cardiology. 2. History of atrial fibrillation rate controlled. The patient is on Coumadin. INR 3.5, holding Coumadin. 3. He has a history of hypertension. Continue home medication. Monitor blood pressure. 4. Hyponatremia, we will monitor sodium and replace. 5. DVT prophylaxis. The patient is on Coumadin. 6. GI prophylaxis, Protonix 40 mg p.o. daily. 7. difficulity swallowing have h/o esophageal stenosis ..GI Consulted. We are going to manage the patient on a daily basis and make recommendations on a daily basis. Discussed Condition with: Patient Zfeerino Muniz MD Jul 15, 2016 09:46
[2016-07-15] MEDS: BUMETANIDE 1 MG TAB PO SCH (10:28)
[2016-07-15] MEDS: CARVEDILOL 12.5 MG TAB PO SCH ×2 (10:28→22:07)
[2016-07-15] MEDS: POTASSIUM CHLORIDE 10 MEQ CONTROLLED RELEASE TAB PO SCH ×2 (10:29→22:10)
[2016-07-15] MEDS: LISINOPRIL 20 MG TAB PO SCH ×2 (10:29→22:07)
[2016-07-15] MEDS: MULTIVITAMINS/MINERALS THERAPEUTIC TAB PO SCH (10:30)
[2016-07-15] MEDS: PANTOPRAZOLE SOD 40 MG DELAYED RELEASE TAB PO SCH (10:30)
[2016-07-15] MEDS: hydrALAZINE HCL 10 MG TAB PO SCH ×3 (13:53→22:07)
[2016-07-15] MEDS: LATANOPROST 0.005% OPHT SOLN 2.5 ML BTL EACH EYE SCH (22:07)
[2016-07-15] MEDS: TEMAZEPAM 15 MG CAP PO PRN (23:47)
[2016-07-16] VITALS (9 sets, daily range): BP systolic 110–145; BP diastolic 52–86; PULSE 69–80; RESP 18–20; TEMP 95.7–97.3; O2SAT 91–98
[2016-07-16] MEDS: hydrALAZINE HCL 10 MG TAB PO SCH ×3 (05:59→20:17)
[2016-07-16 08:34] LABS: INTERNATIONAL NORMALIZED RATIO 2.1 RATIO; PROTHROMBIN TIME - PATIENT 23.6 SEC (9.8-11.6)
[2016-07-16] MEDS: SODIUM CHLORIDE 0.9% FLUSH 10 ML FLUSH IVF SCH ×2 (09:00→20:12)
--- NOTE | 2016-07-16 09:10 | HHI.PR ---
Subjective History of Present Illness Patient feel better no acute issue SOB Better difficulity swallowing have h/o esophageal stenosis ..GI input noted going for Esophageal dilatation tomorrow. d /w TEA [place]. holding coumadin. Review of Systems Constitutional Constitutional: Fatigue, Weakness Throat Throat Remarks difficulity swallowing. GI/Abdomen GI/Abdomen Remarks difficulity swallowing. Vitals/Results Intake & Output 07/15/16 07/15/16 07/16/16 15:00 23:00 07:00 Intake Total 680 ml Output Total 500 ml Balance 680 ml -500 ml Intake Oral 680 ml Output Urine Total 500 ml # Voids 2 2 1 # Bowel Movements 1 0 Vital Signs Vital Signs Date Time Temp Pulse Resp B/P Pulse Ox O2 Delivery O2 Flow Rate FiO2 07/16/16 04:25 97.0 69 18 110/60 91 07/16/16 00:22 97.3 70 18 118/52 92 07/15/16 21:29 94 Nasal Cannula 2.00 07/15/16 21:25 97.1 75 20 141/76 90 07/15/16 20:00 60 07/15/16 16:00 96.3 79 18 123/79 98 07/15/16 12:00 96.2 66 18 120/72 94 07/15/16 10:28 75 07/15/16 10:24 136/72 CBC/BMP: 07/15/16 0718 07/15/16 0718 Lab Results Laboratory Tests Test 07/16/16 08:01 Prothrombin Time 23.6 SEC Prothromb Time International 2.1 RATIO Ratio Physical Exam General General Appearance: No Acute Distress, Comfortable Eyes Eye Exam: Pupils Equal, Pupils Reactive, Sclera White, Extraocular Movement Intact Throat Throat Exam: Oral Mucosa [place] & Moist Neck Neck Exam: Neck Supple, Trachea Midline Pulmonary Resp Exam: Clear Bilaterally, Breath Sounds Equal, Diminished Breath Sounds Cardiology CV Exam: Regular, Normal Sinus Rhythm Gastrointestinal/Abdomen GI Exam: Soft, Non-Tender, Bowel Sounds Present Musculoskeletal MS Exam: Normal Tone Integumentary Skin Exam: Clear, Warm, Dry, Intact Neurologic Neuro Exam: Alert, Awake, Oriented, Speech Clear, Moving All Extremities, No Focal Deficits Psychiatric Psych Exam: Appropriate Responses PUD Prophylasis PUD Prophylaxis: Protonix Assessment/Plan Assessment/Plan ASSESSMENT/PLAN 1. This is an 89-year female who came to the ER diagnosed with shortness of breath most probably secondary to CHF exacerbation, most likely acute on chronic systolic heart failure. Strict I's and O's, daily weights, fluid restriction to 1.5 liters a day, salt restriction to 2 grams a day. The patient is on a beta carlos, checked 2-D echocardiogram, cardiology on the case. Further recommendation per cardiology. 2. History of atrial fibrillation rate controlled. The patient is off Coumadin. INR 2.1, holding Coumadin. 3. He has a history of hypertension. Continue home medication. Monitor blood pressure. 4. Hyponatremia, we will monitor sodium and replace. 5. DVT prophylaxis. The patient is off Coumadin. INR 2.1 6. GI prophylaxis, Protonix 40 mg p.o. daily. 7. Difficulity swallowing have h/o esophageal stenosis ..GI input noted going for Esophageal dilatation tomorrow. . holding coumadin. We are going to manage the patient on a daily basis and make recommendations on a daily basis. Discussed Condition with: Patient Zeferino Muniz MD Jul 16, 2016 09:10
[2016-07-16] MEDS: CHOLECALCIFEROL (VIT D3) 1000 UNIT TAB PO SCH (10:02)
[2016-07-16] MEDS: CARVEDILOL 12.5 MG TAB PO SCH ×2 (10:02→20:17)
[2016-07-16] MEDS: LISINOPRIL 20 MG TAB PO SCH ×2 (10:02→20:12)
[2016-07-16] MEDS: BUMETANIDE 1 MG TAB PO SCH (10:02)
[2016-07-16] MEDS: PANTOPRAZOLE SOD 40 MG DELAYED RELEASE TAB PO SCH (10:02)
[2016-07-16] MEDS: MULTIVITAMINS/MINERALS THERAPEUTIC TAB PO SCH (10:02)
[2016-07-16] MEDS: POTASSIUM CHLORIDE 10 MEQ CONTROLLED RELEASE TAB PO SCH ×2 (10:04→20:12)
--- NOTE | 2016-07-16 19:13 | HHI.GIFU ---
GI Follow-up Note Consult Follow-up Subjective: Patient laying in bed comfortably, on oxygen, doing better .States she is unable to drink water , chocks on it most of the time.Solid food is better, sometimes gets stuck.she had similar symptoms in the past, improved after dilatation. Objective: PHYSICAL EXAMINATION: Vitals signs stable No fever Vital Signs Date Time Temp Pulse Resp B/P Pulse Ox O2 Delivery O2 Flow Rate FiO2 07/16/16 16:00 96.0 80 20 144/86 98 07/16/16 13:30 69 07/16/16 12:00 95.7 71 20 127/79 95 HEENT: Pupils round and reactive to light; normocephalic; atraumatic; no jaundice. Throat is clear. NECK: Neck is supple, no JVD, no lymphadenopathy. CHEST: Chest is clear to auscultation and percussion. CARDIAC: Regular rate and rhythm with no murmur gallop or rubs. ABDOMEN: Soft, nondistended, nontender; no hepatosplenomegaly; bowel sounds are present in all four quadrants. EXTREMITIES: No clubbing, cyanosis, or edema. SKIN: Normal; no rash; no jaundice. PARIMUTUEL TICKET SELLER: No focal deficits; alert and oriented times three. Available Data (labs, X- Rays, Procedues) : Laboratory Tests Test 07/15/16 07/16/16 07:18 08:01 White Blood Count 5.4 TH/MM3 Red Blood Count 3.53 MIL/MM3 Hemoglobin 11.1 GM/DL Hematocrit 33.0 % Mean Corpuscular Volume 93.4 FL Mean Corpuscular Hemoglobin 31.5 PG Mean Corpuscular Hemoglobin 33.8 % Concent Red Cell Distribution Width 13.5 % Platelet Count 141 TH/MM3 Mean Platelet Volume 7.3 FL Neutrophils (%) (Auto) 61.3 % Lymphocytes (%) (Auto) 20.9 % Monocytes (%) (Auto) 14.6 % Eosinophils (%) (Auto) 2.7 % Basophils (%) (Auto) 0.5 % Neutrophils # (Auto) 3.4 TH/MM3 Lymphocytes # (Auto) 1.1 TH/MM3 Monocytes # (Auto) 0.8 TH/MM3 Eosinophils # (Auto) 0.1 TH/MM3 Basophils # (Auto) 0.0 TH/MM3 CBC Comment DIFF FINAL Differential Comment Prothrombin Time 30.7 SEC 23.6 SEC Prothromb Time International 2.7 RATIO 2.1 RATIO Ratio Sodium Level 130 MEQ/L Potassium Level 3.8 MEQ/L Chloride Level 92 MEQ/L Carbon Dioxide Level 27.3 MEQ/L Anion Gap 11 MEQ/L Blood Urea Nitrogen 25 MG/DL Creatinine 1.10 MG/DL Estimat Glomerular Filtration 47 ML/MIN Rate Random Glucose 84 MG/DL Calcium Level 8.7 MG/DL Total Bilirubin 1.3 MG/DL Aspartate Amino Transf 29 U/L (AST/SGOT) Alanine Aminotransferase 15 U/L (ALT/SGPT) Alkaline Phosphatase 103 U/L Total Protein 6.3 GM/DL Albumin 2.9 GM/DL ASSESSMENT/PLAN: dysphagia, history of esophageal stricture -egd/dilatation in am if stable Recommendations egd/dilatation in am if not better consider speech therapy evaluation It was a pleasure seeing Mariella Chirinos Thank you for this consult. Entered by: Fabienne Esqueda MD Jul 16, 2016 19:13
[2016-07-16] MEDS: LATANOPROST 0.005% OPHT SOLN 2.5 ML BTL EACH EYE SCH (20:12)
[2016-07-17] VITALS (9 sets, daily range): BP systolic 137–157; BP diastolic 65–86; PULSE 65–100; RESP 18–20; TEMP 96.2–97.7; O2SAT 93–97
[2016-07-17] MEDS: hydrALAZINE HCL 10 MG TAB PO SCH ×3 (05:25→21:31)
[2016-07-17 06:38] LABS: INTERNATIONAL NORMALIZED RATIO 1.8 RATIO; PROTHROMBIN TIME - PATIENT 20.6 SEC (9.8-11.6)
--- NOTE | 2016-07-17 08:18 | HHI.PR ---
Subjective History of Present Illness Patient feel better no acute issue SOB Better difficulity swallowing have h/o esophageal stenosis ..GI input noted going for Esophageal dilatation today. d/w TEA [place]. holding coumadin. INR 1.8 Low sodium star sodium chloride tablet. Review of Systems Constitutional Constitutional: Fatigue, Weakness Throat Throat Remarks difficulity swallowing. GI/Abdomen GI/Abdomen Remarks difficulity swallowing. Vitals/Results Intake & Output 07/16/16 07/16/16 07/17/16 15:00 23:00 07:00 Output Total 200 ml 400 ml 200 ml Balance -200 ml -400 ml -200 ml Output Urine Total 200 ml 400 ml 200 ml Vital Signs Vital Signs Date Time Temp Pulse Resp B/P Pulse Ox O2 Delivery O2 Flow Rate FiO2 07/17/16 04:20 97.2 68 18 148/81 97 07/17/16 00:08 97.0 70 20 147/70 96 07/16/16 20:33 96.4 77 20 145/75 97 07/16/16 20:00 71 07/16/16 19:21 98 Nasal Cannula 2.00 07/16/16 16:00 96.0 80 20 144/86 98 07/16/16 13:30 69 07/16/16 12:00 95.7 71 20 127/79 95 CBC/BMP: 07/15/16 0718 07/15/16 0718 Lab Results Laboratory Tests Test 07/17/16 05:35 Prothrombin Time 20.6 SEC Prothromb Time International 1.8 RATIO Ratio Physical Exam General General Appearance: No Acute Distress, Comfortable Eyes Eye Exam: Pupils Equal, Pupils Reactive, Sclera White, Extraocular Movement Intact Throat Throat Exam: Oral Mucosa [place] & Moist Neck Neck Exam: Neck Supple, Trachea Midline Pulmonary Resp Exam: Clear Bilaterally, Breath Sounds Equal, Diminished Breath Sounds Cardiology CV Exam: Regular, Normal Sinus Rhythm Gastrointestinal/Abdomen GI Exam: Soft, Non-Tender, Bowel Sounds Present Musculoskeletal MS Exam: Normal Tone Integumentary Skin Exam: Clear, Warm, Dry, Intact Neurologic Neuro Exam: Alert, Awake, Oriented, Speech Clear, Moving All Extremities, No Focal Deficits Psychiatric Psych Exam: Appropriate Responses PUD Prophylasis PUD Prophylaxis: Protonix Assessment/Plan Assessment/Plan ASSESSMENT/PLAN 1. This is an 89-year female who came to the ER diagnosed with shortness of breath most probably secondary to CHF exacerbation, most likely acute on chronic systolic heart failure. Strict I's and O's, daily weights, fluid restriction to 1.5 liters a day, salt restriction to 2 grams a day. The patient is on a beta carlos, checked 2-D echocardiogram, cardiology on the case. Further recommendation per cardiology. 2. History of atrial fibrillation rate controlled. The patient is off Coumadin because going for esophageal dilatation.. 3. He has a history of hypertension. Continue home medication. Monitor blood pressure. 4. Hyponatremia, we will monitor sodium and replace. 5. DVT prophylaxis. The patient is off Coumadin. INR 1.8 6. GI prophylaxis, Protonix 40 mg p.o. daily. 7. Difficulity swallowing have h/o esophageal stenosis ..GI input noted going for Esophageal dilatation today . holding coumadin. 8. Low sodium star sodium chloride tablet. We are going to manage the patient on a daily basis and make recommendations on a daily basis. Discussed Condition with: Patient Zeferino Muniz MD Jul 17, 2016 08:18
[2016-07-17] MEDS: BUMETANIDE 1 MG TAB PO SCH (09:00)
[2016-07-17] MEDS: PANTOPRAZOLE SOD 40 MG DELAYED RELEASE TAB PO SCH (09:00)
[2016-07-17] MEDS: SODIUM CHLORIDE 0.9% FLUSH 10 ML FLUSH IVF SCH ×2 (09:00→21:00)
[2016-07-17] MEDS: CHOLECALCIFEROL (VIT D3) 1000 UNIT TAB PO SCH (09:00)
[2016-07-17] MEDS: POTASSIUM CHLORIDE 10 MEQ CONTROLLED RELEASE TAB PO SCH ×2 (09:00→21:31)
[2016-07-17] MEDS: MULTIVITAMINS/MINERALS THERAPEUTIC TAB PO SCH (09:00)
[2016-07-17] MEDS: CARVEDILOL 12.5 MG TAB PO SCH ×2 (09:00→21:32)
[2016-07-17] MEDS: LISINOPRIL 20 MG TAB PO SCH ×2 (09:00→21:32)
--- NOTE | 2016-07-17 11:58 | HHI.GIFU ---
Subjective Remarks feels ok, no new complains, Coumadin on hold INR 1.8 Objective Vitals I&O Vital Signs Date Time Temp Pulse Resp B/P Pulse Ox O2 Delivery O2 Flow Rate FiO2 07/17/16 10:00 97.7 66 18 137/65 95 07/17/16 08:23 93 Nasal Cannula 2.00 07/17/16 08:00 65 07/17/16 08:00 97.1 76 18 140/77 93 07/17/16 04:20 97.2 68 18 148/81 97 07/17/16 00:08 97.0 70 20 147/70 96 07/16/16 20:33 96.4 77 20 145/75 97 07/16/16 20:00 71 07/16/16 19:21 98 Nasal Cannula 2.00 07/16/16 16:00 96.0 80 20 144/86 98 07/16/16 13:30 69 07/16/16 12:00 95.7 71 20 127/79 95 I/O 07/16/16 07/16/16 07/16/16 07/17/16 07/17/16 07/17/16 07:00 15:00 23:00 07:00 15:00 23:00 Output Total 500 ml 200 ml 400 ml 200 ml Balance -500 ml -200 ml -400 ml -200 ml Output Urine Total 500 ml 200 ml 400 ml 200 ml # Voids 1 Laboratory Laboratory Tests Test 07/17/16 05:35 Prothrombin Time 20.6 Prothromb Time International 1.8 Ratio Physical Exam HEENT: Pupils round and reactive to light; normocephalic; atraumatic; no jaundice. Throat is clear. NECK: Neck is supple, no JVD, no lymphadenopathy. CHEST: Chest is clear to auscultation and percussion. CARDIAC: Regular rate and rhythm with no murmur gallop or rubs. ABDOMEN: Soft, nondistended, nontender; no hepatosplenomegaly; bowel sounds are present in all four quadrants. EXTREMITIES: No clubbing, cyanosis, or edema. SKIN: Normal; no rash; no jaundice. Assessment and Plan Plan dysphagia, EGD showed esophageal stricture S/P dilation size 18 mm, did well ok to feed patient soft diet ok to DC home if tolerated Mehul Tobar MD Jul 17, 2016 11:58
--- NOTE | 2016-07-17 12:02 | GIPROC ---
[address], [address] EGD PROCEDURE REPORT EXAM DATE: 07/17/2016 PATIENT NAME: Mariella Chirinos MR #: [id number] BIRTHDATE: 1925 ATTENDING: Mehul Tobar MD ORDER #: [id number] LEVEL VIAL INSPECTOR: Tanya Bailey and Colby Mena STATUS: inpatient INDICATIONS: The patient is a 89 yr old female here for an EGD due to dysphagia PROCEDURE PERFORMED: EGD w/ dilation of esophagus via guidewire MEDICATIONS: None and Per Anesthesia. TOPICAL ANESTHETIC: none CONSENT: The patient understands the risks and benefits of the procedure and understands that these risks include, but are not limited to: sedation, allergic reaction, infection, perforation and/or bleeding. Alternative means of evaluation and treatment include, among others: physical exam, x-rays, and/or surgical intervention. The patient elects to proceed with this endoscopic procedure. medical equipment was checked for proper function. Hand hygiene and appropriate measures for infection prevention was taken. After the risks, benefits and alternatives of the procedure were thoroughly explained, Informed consent was verified, confirmed and timeout was successfully executed by the treatment team. The patient was anesthetized with topical anesthesia and the Pentax EG-[id number] endoscope was introduced through the mouth and advanced to the second portion of the duodenum. Retroflexed views revealed no abnormalities The gastroscope was then slowly withdrawn and removed. Esophageal stricture S/P dilation savary size 18 mm. The endoscopy was otherwise normal. ADVERSE EVENTS: There were no complications. IMPRESSIONS: 1. Esophageal stricture S/P dilation savary size 18 mm 2. Normal endoscopy otherwise 3. Retroflexed views revealed no abnormalities RECOMMENDATIONS: Soft diet restart anticoagulation in am ok to DC home from GI if tolerate food RTC as needed PATIENT CONDITION: stable DISPOSITION: Inpatient REPEAT EXAM: Return as needed for Dilatation Mehul Tobar MD eSigned: Mehul Tobar MD 07/17/2016 12:01 PM cc:
[2016-07-17] MEDS ORDERED: PROPOFOL 200 MG/20 ML AMP IV ONE (15:55)
[2016-07-17] MEDS: LATANOPROST 0.005% OPHT SOLN 2.5 ML BTL EACH EYE SCH (21:32)
[2016-07-17] MEDS: TEMAZEPAM 15 MG CAP PO PRN (21:35)
[2016-07-18] VITALS: BP 126/68; PULSE 68; RESP 18; TEMP 98; O2SAT 96
[2016-07-18 04:00] VITALS: BP 150/75; PULSE 70; RESP 18; TEMP 98.3; O2SAT 95
[2016-07-18] MEDS: hydrALAZINE HCL 10 MG TAB PO SCH (06:08)
[2016-07-18 06:23] LABS: AUTOMATED NEUTROPHIL # 5.5 TH/MM3 (1.8-7.7); BASOPHIL # 0.1 TH/MM3 (0-0.2); BASOPHIL % 0.7 % (0.0-2.0); EOSINOPHIL # 0.1 TH/MM3 (0-0.4); EOSINOPHIL % 1.5 % (0.0-4.0); HEMATOCRIT 33.9 % (35.0-46.0); HEMO FLAGS DIFF FINAL; MEAN CELL VOLUME 93.9 FL (80.0-100.0); MEAN CORPUSCULAR HEMOGLOBIN 30.5 PG (27.0-34.0); MEAN CORPUSCULAR HGB CONC 32.5 % (32.0-36.0); MONO % 13.8 % (0.0-8.0); PLATELET COUNT 169 TH/MM3 (150-450); RED BLOOD COUNT 3.61 MIL/MM3 (4.00-5.30); RED CELL DISTRIBUTION WIDTH 13.5 % (11.6-17.2); WHITE BLOOD COUNT 7.8 TH/MM3 (4.0-11.0)
[2016-07-18 06:31] LABS: CHLORIDE 95 MEQ/L (98-107); POTASSIUM 4.5 MEQ/L (3.5-5.1); SODIUM (NA) 133 MEQ/L (136-145)
[2016-07-18 06:32] LABS: INTERNATIONAL NORMALIZED RATIO 1.6 RATIO; PROTHROMBIN TIME - PATIENT 18.3 SEC (9.8-11.6)
[2016-07-18 06:39] LABS: ANION GAP 11 MEQ/L (5-15); BICARBONATE 26.7 MEQ/L (21.0-32.0); BLOOD UREA NITROGEN 25 MG/DL (7-18)
[2016-07-18 06:42] LABS: ALT (GPT) 19 U/L (10-53); AST (GOT) 29 U/L (15-37); GLOMERULAR FILTRATION RATE 52 ML/MIN (>89)
[2016-07-18 06:43] LABS: TOTAL BILIRUBIN ADULT 1.5 MG/DL (0.2-1.0)
[2016-07-18 06:45] LABS: ALKALINE PHOSPHATASE 114 U/L (45-117)
[2016-07-18 08:00] VITALS: BP 118/67; PULSE 73; RESP 18; TEMP 98.2; O2SAT 94
[2016-07-18 08:01] VITALS: PULSE 73
[2016-07-18] MEDS: LISINOPRIL 20 MG TAB PO SCH (08:10)
[2016-07-18] MEDS: PANTOPRAZOLE SOD 40 MG DELAYED RELEASE TAB PO SCH (08:10)
[2016-07-18] MEDS: POTASSIUM CHLORIDE 10 MEQ CONTROLLED RELEASE TAB PO SCH (08:10)
[2016-07-18] MEDS: BUMETANIDE 1 MG TAB PO SCH (08:10)
[2016-07-18] MEDS: MULTIVITAMINS/MINERALS THERAPEUTIC TAB PO SCH (08:10)
[2016-07-18] MEDS: CARVEDILOL 12.5 MG TAB PO SCH (08:10)
[2016-07-18] MEDS: CHOLECALCIFEROL (VIT D3) 1000 UNIT TAB PO SCH (08:11)
[2016-07-18] MEDS: SODIUM CHLORIDE 0.9% FLUSH 10 ML FLUSH IVF SCH (08:12)
--- NOTE | 2016-07-18 08:30 | HHI.PR ---
Subjective History of Present Illness Patient feel better no acute issue SOB Better difficulity swallowing have h/o esophageal stenosis ..GI input noted s/p Esophageal dilatation today. d/w TEA Mcf[place]en. holding coumadin. INR 1.6 Low sodium star sodium chloride tablet. Review of Systems Constitutional Constitutional: Fatigue, Weakness Throat Throat Remarks difficulity swallowing. GI/Abdomen GI/Abdomen Remarks difficulity swallowing. Vitals/Results Intake & Output 07/17/16 07/17/16 07/18/16 15:00 23:00 07:00 Intake Total 150 ml 440 ml 60 ml Output Total 301 ml Balance 150 ml 139 ml 60 ml Intake Oral 440 ml 60 ml Other 150 ml Output Urine Total 300 ml Stool Total 1 ml # Voids 2 # Bowel Movements 0 Vital Signs Vital Signs Date Time Temp Pulse Resp B/P Pulse Ox O2 Delivery O2 Flow Rate FiO2 07/18/16 08:00 98.2 73 18 118/67 94 07/18/16 04:00 98.3 70 18 150/75 95 07/18/16 00:00 98.0 68 18 126/68 96 07/17/16 20:31 93 2.00 07/17/16 20:00 100 07/17/16 20:00 96.2 72 18 151/79 96 07/17/16 16:00 96.8 78 18 157/86 96 07/17/16 12:30 78 15 112/62 93 07/17/16 12:30 97.3 70 18 149/78 95 07/17/16 12:20 75 15 107/54 93 07/17/16 12:10 97.7 75 14 103/53 93 07/17/16 10:00 97.7 66 18 137/65 95 CBC/BMP: 07/18/16 0605 07/18/16 0605 Lab Results Laboratory Tests Test 07/18/16 06:05 White Blood Count 7.8 TH/MM3 Red Blood Count 3.61 MIL/MM3 Hemoglobin 11.0 GM/DL Hematocrit 33.9 % Mean Corpuscular Volume 93.9 FL Mean Corpuscular Hemoglobin 30.5 PG Mean Corpuscular Hemoglobin 32.5 % Concent Red Cell Distribution Width 13.5 % Platelet Count 169 TH/MM3 Mean Platelet Volume 7.3 FL Neutrophils (%) (Auto) 71.0 % Lymphocytes (%) (Auto) 13.0 % Monocytes (%) (Auto) 13.8 % Eosinophils (%) (Auto) 1.5 % Basophils (%) (Auto) 0.7 % Neutrophils # (Auto) 5.5 TH/MM3 Lymphocytes # (Auto) 1.0 TH/MM3 Monocytes # (Auto) 1.1 TH/MM3 Eosinophils # (Auto) 0.1 TH/MM3 Basophils # (Auto) 0.1 TH/MM3 CBC Comment DIFF FINAL Differential Comment Prothrombin Time 18.3 SEC Prothromb Time International 1.6 RATIO Ratio Sodium Level 133 MEQ/L Potassium Level 4.5 MEQ/L Chloride Level 95 MEQ/L Carbon Dioxide Level 26.7 MEQ/L Anion Gap 11 MEQ/L Blood Urea Nitrogen 25 MG/DL Creatinine 1.00 MG/DL Estimat Glomerular Filtration 52 ML/MIN Rate Random Glucose 94 MG/DL Calcium Level 9.0 MG/DL Total Bilirubin 1.5 MG/DL Aspartate Amino Transf 29 U/L (AST/SGOT) Alanine Aminotransferase 19 U/L (ALT/SGPT) Alkaline Phosphatase 114 U/L Total Protein 6.4 GM/DL Albumin 3.0 GM/DL Physical Exam General General Appearance: No Acute Distress, Comfortable Eyes Eye Exam: Pupils Equal, Pupils Reactive, Sclera White, Extraocular Movement Intact Throat Throat Exam: Oral Mucosa [place] & Moist Neck Neck Exam: Neck Supple, Trachea Midline Pulmonary Resp Exam: Clear Bilaterally, Breath Sounds Equal, Diminished Breath Sounds Cardiology CV Exam: Regular, Normal Sinus Rhythm Gastrointestinal/Abdomen GI Exam: Soft, Non-Tender, Bowel Sounds Present Musculoskeletal MS Exam: Normal Tone Integumentary Skin Exam: Clear, Warm, Dry, Intact Neurologic Neuro Exam: Alert, Awake, Oriented, Speech Clear, Moving All Extremities, No Focal Deficits Psychiatric Psych Exam: Appropriate Responses PUD Prophylasis PUD Prophylaxis: Protonix Assessment/Plan Assessment/Plan ASSESSMENT/PLAN 1. This is an 89-year female who came to the ER diagnosed with shortness of breath most probably secondary to CHF exacerbation, most likely acute on chronic systolic heart failure. Strict I's and O's, daily weights, fluid restriction to 1.5 liters a day, salt restriction to 2 grams a day. The patient is on a beta carlos, checked 2-D echocardiogram, cardiology on the case. Further recommendation per cardiology. 2. History of atrial fibrillation rate controlled. The patient is off Coumadin because going for esophageal dilatation.. 3. He has a history of hypertension. Continue home medication. Monitor blood pressure. 4. Hyponatremia, we will monitor sodium and replace. 5. DVT prophylaxis. The patient is off Coumadin. INR 1.6 6. GI prophylaxis, Protonix 40 mg p.o. daily. 7. Difficulity swallowing have h/o esophageal stenosis ..GI input noted going for Esophageal dilatation today . holding coumadin. 8. Low sodium star sodium chloride tablet. ok to dc home today. f/u with pcp/ GI 1 week. Discussed Condition with: Patient Zeferino Muniz MD Jul 18, 2016 08:30
[2016-07-18] MEDS ORDERED: POTA-243 PO (08:33)
[2016-07-18] MEDS ORDERED: PANT40TA3 PO (08:33)
--- NOTE | 2016-07-30 18:49 | MD ---
cc: ZEFERINO COY MD ADMISSION DATE: 07/15/2016 DISCHARGE DATE: 07/18/2016 Okay to discharge the patient home. Condition at the time of discharge satisfactory. Activity as tolerated. Diet, cardiac diet. ALLERGIES AMLODIPINE. DISCHARGE MEDICATIONS 1. Protonix 40 milligrams p.o. daily. 2. Potassium chloride 10 milliequivalents p.o. twice a day. 3. Bumetanide 1 mg p.o. daily. 4. Carvedilol 12.5 mg p.o. b.i.d. 5. Vitamin D 1000 units p.o. daily. 6. Hydralazine 10 mg p.o. t.i.d. 7. Latanoprost 0.005% drops 1 drop each eye at bedtime. 8. Lisinopril 20 mg p.o. daily. 9. Multivitamin p.o. daily. 10. Coumadin 2 mg p.o. daily. The patient had special instructions, advised to check PT/INR give report to the primary care doctor. ADMISSION DIAGNOSIS Shortness of breath secondary to a CHF exacerbation, most likely acute on chronic systolic heart failure. DISCHARGE DIAGNOSES 1. Shortness of breath improved. 2. CHF exacerbation improved. 3. History of atrial fibrillation, rate controlled. 4. History of hypertension. 5. History of hyponatremia. 6. Difficulty swallowing, has a history of esophageal stenosis. 7. Low sodium, sodium tablet was started. HOSPITAL COURSE This is 89-year-old female admitted with shortness of breath diagnosed with acute on chronic systolic heart failure. The patient was given strict ins and outs daily with further to 1.5 liters a day. Salt restriction to 2 grams a day. Check 2-D echocardiogram. Cardiology saw the patient. The patient remained stable. No acute event happened. The patient discharged in satisfactory condition. The patient had anemia with hemoglobin of 11.0. Hyponatremia, sodium was 133 at the time of discharge. INR was 1.6. The patient advised to follow up with PCP and check INR. Further details in the medical record. Zeferino Coy MD EA/ELIZABETH /2:00 PM /6:36 PM
== END 2016-07-18 13:33 | disposition home or self-care (01) | DRG 292 ==
LOC: PHED 20:23 → PHEDA 22:58 → PHEDH 07-12 02:58 → PH3A 07-12 08:07 → OBSVTOIN 07-15 15:24
PROVIDERS: ADMIT Specialist; ATTEND Specialist
PROC: 0D758ZZ Dilation of Esophagus, Via Natural or Artificial Opening Endoscopic (ICD-10-PCS; principal; 2016-07-17 11:40)
DX: I50.23 Acute on chronic systolic (congestive) heart failure (principal); E87.1 Hypo-osmolality and hyponatremia; I48.2 Chronic atrial fibrillation; J98.11 Atelectasis; Z79.01 Long term (current) use of anticoagulants; K22.2 Esophageal obstruction; R13.10 Dysphagia, unspecified; E78.5 Hyperlipidemia, unspecified; K21.9 Gastro-esophageal reflux disease without esophagitis; M19.90 Unspecified osteoarthritis, unspecified site; N18.9 Chronic kidney disease, unspecified; I25.10 Atherosclerotic heart disease of native coronary artery without angina pectoris; Z85.828 Personal history of other malignant neoplasm of skin; Z87.891 Personal history of nicotine dependence; Z92.3 Personal history of irradiation; Z95.0 Presence of cardiac pacemaker
CPT/HCPCS: 71020; 80053; 82550; 82552; 83735; 83880; 84484; 85025; 85610; 93005; 93306; 96374; C1769; G0378

== ENCOUNTER 2016-09-01 13:26 | Inpatient (IN) | payer MEDICARE ==
[~2016-09-01] VITALS: Ht 157.5 cm; Wt 59.6 kg
[2016-09-01] VITALS (7 sets, daily range): BP systolic 127–144; BP diastolic 67–88; PULSE 66–79; RESP 16–26; TEMP 95.3–97.8; O2SAT 95–99
[~2016-09-01 13:26] MED LIST changes: +CARV12.52 PO; -CARV6.252 PO; -DOCU1CAP39 PO; +HYDR10TA23 PO; +LATA0.002 EACH EYE; -LEVA500T PO; -LISI-363 PO; +LISI-515 PO; +PANT40TA3 PO; +POTA-243 PO; +PRESCAP5 PO; -SIMV10 PO; -VITA-13 PO; +VITA1000 PO; -WARF2TAB PO; +WARF4TAB51 PO
--- NOTE | 2016-09-01 14:22 | PD ---
HPI Chief Complaint: Respiratory Symptoms Time Seen by Provider: 14:22 Travel History International Travel<30 days: No Contact w/Intl Traveler<30days: No Traveled to known affect area: No History of Present Illness HPI 89-year-old female presents to the emergency Department with 2 week history of progressively worsening lower pedal edema, as well as the crease generalized weakness and dyspnea with exertion. Patient does state she's been "coughing up a lot of clear mucous" in the past 2 weeks. She denies fever, chills, or changes in her appetite. Patient states she may have had some small amount of decreased urination. She denies any specific complaints of pain. Patient has a history of chronic lower extremity edema as well as CHF in the past. She is currently on Coumadin for chronic A. fib, as well as Bumex for a water pill. She states she has a history of trouble with her kidneys. She is allergic to amlodipine. PFSH Past Medical History Hx Anticoagulant Therapy: Yes (COUMADIN ) Arthritis: Yes Autoimmune Disease: No Heart Rhythm Problems: Yes (PACEMAKER) Cancer: Yes (SKIN CA OF NOSE) Cardiovascular Problems: Yes High Cholesterol: Yes Chest Pain: No Congestive Heart Failure: Yes Diminished Hearing: No Endocrine: No Genitourinary: Yes Hypertension: Yes Immune Disorder: No Kidney Stones: No Musculoskeletal: Yes Neurologic: No Psychiatric: No Reproductive: No Respiratory: Yes (CHF) Integumentary: Yes (SKIN CA OF NOSE - RECIEVING RADIATION THERAPY) Radiation Therapy: Yes (SKIN CA OF NOSE - CURRENT) Renal Failure: Yes (RENAL ARTERY ANGIOPLASTY ) ?: Not Past Surgical History Abdominal Surgery: No Body Medical Devices: "shims" in her back between a few discs" Cardiac Surgery: Yes (SURGERY ON CAROTID ARTERIES bilateral ) Coronary Stent: Yes (LEFT AND RIGHT CAROTID) Ear Surgery: No Eye Surgery: Yes (RIGHT CATARACT) Genitourinary Surgery: Yes (RENAL ARTERY ANGIOPLASTY) Gynecologic Surgery: Yes (HYSTERECTOMY) Hysterectomy: Yes Oral Surgery: No Pacemaker: Yes Thoracic Surgery: No Tonsillectomy: Yes Other Surgery: Yes (L. LUMPECTOMY ) Social History Alcohol Use: No Tobacco Use: No Substance Use: No Allergies-Medications (Allergen,Severity, Reaction): Coded Allergies: Amlodipine (Verified Allergy, Severe, Swelling, 09/01/16) Reported Meds & Prescriptions Reported Meds & Active Scripts Active Klor-Con 10 (Potassium Chloride) 10 Meq Tab 10 Meq PO BID Pantoprazole (Pantoprazole Sodium) 40 Mg Tab 40 Mg PO DAILY Reported Latanoprost Opth Drops (Latanoprost) 0.005% Drops 1 Drop EACH EYE HS Refrigerate until opened. Preservision Areds 2 (Multiple Vitamins W/ Minerals) 1 Cap 1 Cap PO DAILY Vitamin D-1000 (Cholecalciferol) 1,000 Unit Tab 1,000 Units PO DAILY Warfarin 2 Mg Tab 2 Mg PO DAILY Bumetanide 1 Mg Tab 1 Mg PO DAILY Lisinopril 20 Mg Tab 20 Mg PO BID Carvedilol 12.5 Mg Tab 12 Mg PO BID Hydralazine (Hydralazine HCl) 10 Mg Tab 10 Mg PO TID Take with a meal Review of Systems Except as stated in HPI: all other systems reviewed are Neg General / Constitutional: Positive: Weight Gain, No: Fever, Chills, Weight Loss, Other Eyes: No: Visual changes HENT: No: Headaches, Vertigo, Lightheadedness, Sore Throat, Rhinitis, Rhinorrhea, Congestion, Nosebleed, Neck Stiffness, Neck Pain, Masses, Gingival Bleeding, Dental Difficulties, Ear Discharge, Earache Cardiovascular: Positive: Dyspnea on exertion, Edema, No: Chest Pain or Discomfort, Palpitations, Irregular Rhythm, Tachycardia, Diaphoresis, Syncope, Varicosities, Cyanosis, Varicosities, Phlebitis, Claudication Respiratory: Positive: Cough, Shortness of Breath, No: Wheezing, Sneezing, Orthopnea, Hemoptysis, Stridor, Night Sweats, Pleuritic Pain, Other Gastrointestinal: Positive: Vomiting, No: Nausea, Diarrhea, Abdominal Pain Genitourinary: No: Dysuria Musculoskeletal: Positive: Myalgias, Edema, No: Arthralgias, Limited ROM, Weakness, Cramping, Pain, Atrophy, Other Skin: No Rash Neurologic: No: Weakness Psychiatric: No: Depression Endocrine: No: Polydipsia Hematologic/Lymphatic: No: Easy Bruising Physical Exam Narrative GENERAL: Patient appears in no obvious distress. SKIN: Warm and dry. Normal color. Somewhat decreased turgor. No signs of cellulitis HEAD: Atraumatic. Normocephalic. EYES: Pupils equal and round. No scleral icterus. No injection or drainage. ENT: No nasal bleeding or discharge. Mucous membranes pink and moist. Pharynx is clear. Airway is patent. NECK: Trachea midline. No JVD. Supple and nontender. CARDIOVASCULAR: Regular rate and rhythm. No murmurs gallops or rubs appreciated. RESPIRATORY: No accessory muscle use. Mild crackles to auscultation. Breath sounds equal bilaterally. GASTROINTESTINAL: Abdomen soft, non-tender, nondistended. Hepatic and splenic margins not palpable. MUSCULOSKELETAL: Extremities without clubbing, cyanosis, 2+ bilateral pitting edema. No obvious deformities. NEUROLOGICAL: Awake and alert. No obvious cranial nerve deficits. Motor grossly within normal limits. Five out of 5 muscle strength in the arms and legs. Normal speech. PSYCHIATRIC: Appropriate mood and affect; insight and judgment normal. Data Data Last Documented VS Vital Signs Date Time Temp Pulse Resp B/P Pulse Ox O2 Delivery O2 Flow Rate FiO2 09/01/16 14:41 97 Room Air 09/01/16 13:44 97.8 79 26 130/67 Orders Complete Blood Count With Diff (09/01/16 14:26) Comprehensive Metabolic Panel (09/01/16 14:26) B-Type Natriuretic Peptide (09/01/16 14:26) Act Partial Throm Time (Ptt) (09/01/16 14:26) Prothrombin Time / Inr (Pt) (09/01/16 14:26) Magnesium (Mg) (09/01/16 14:26) Ckmb (Isoenzyme) Profile (09/01/16 14:26) Troponin I (09/01/16 14:26) Urinalysis - C+S If Indicated (09/01/16 14:26) Iv Access Insert/Monitor (09/01/16 14:26) Electrocardiogram (09/01/16 14:26) Ecg Monitoring (09/01/16 14:26) Oximetry (09/01/16 14:26) Oxygen Administration (09/01/16 14:26) Chest, Single Ap (09/01/16 14:26) Cath For Specimen (09/01/16 14:26) Sodium Chloride 0.9% Flush (Ns Flush) (09/01/16 14:30) CKMB (09/01/16 14:50) CKMB% (09/01/16 14:50) Labs Laboratory Tests Test 09/01/16 09/01/16 14:50 15:05 White Blood Count 5.5 TH/MM3 Red Blood Count 3.48 MIL/MM3 Hemoglobin 11.2 GM/DL Hematocrit 32.8 % Mean Corpuscular Volume 94.3 FL Mean Corpuscular Hemoglobin 32.0 PG Mean Corpuscular Hemoglobin 34.0 % Concent Red Cell Distribution Width 15.0 % Platelet Count 138 TH/MM3 Mean Platelet Volume 7.6 FL Neutrophils (%) (Auto) 70.1 % Lymphocytes (%) (Auto) 13.7 % Monocytes (%) (Auto) 13.4 % Eosinophils (%) (Auto) 2.0 % Basophils (%) (Auto) 0.8 % Neutrophils # (Auto) 3.9 TH/MM3 Lymphocytes # (Auto) 0.8 TH/MM3 Monocytes # (Auto) 0.7 TH/MM3 Eosinophils # (Auto) 0.1 TH/MM3 Basophils # (Auto) 0.0 TH/MM3 CBC Comment DIFF FINAL Differential Comment Prothrombin Time 65.2 SEC Prothromb Time International 5.5 RATIO Ratio Activated Partial 58.7 SEC Thromboplast Time Sodium Level 123 MEQ/L Potassium Level 4.8 MEQ/L Chloride Level 87 MEQ/L Carbon Dioxide Level 26.1 MEQ/L Anion Gap 10 MEQ/L Blood Urea Nitrogen 39 MG/DL Creatinine 1.60 MG/DL Estimat Glomerular Filtration 30 ML/MIN Rate Random Glucose 133 MG/DL Calcium Level 8.9 MG/DL Magnesium Level 1.9 MG/DL Total Bilirubin 1.4 MG/DL Aspartate Amino Transf 54 U/L (AST/SGOT) Alanine Aminotransferase 27 U/L (ALT/SGPT) Alkaline Phosphatase 130 U/L Total Creatine Kinase 171 U/L Troponin I LESS THAN 0.02 NG/ML B-Type Natriuretic Peptide 706 PG/ML Total Protein 7.4 GM/DL Albumin 3.4 GM/DL Urine Collection Type CATH Urine Color STRAW Urine Turbidity CLEAR Urine pH 5.5 Urine Specific [place] 1.008 Urine Protein NEG mg/dL Urine Glucose (UA) NEG mg/dL Urine Ketones NEG mg/dL Urine Occult Blood NEG Urine Nitrite NEG Urine Bilirubin NEG Urine Leukocyte Esterase NEG Urine WBC 0-2 /hpf Microscopic Urinalysis Comment CULT NOT INDICATED MDM Medical Decision Making Medical Screen Exam Complete: Yes Emergency Medical Condition: Yes Medical Record Reviewed: Yes Differential Diagnosis Dyspnea. Weakness. Electrolyte imbalance. Anemia. CHF. Cardiac syndrome. Narrative Course Patient is medically stable at time of exam. EKG is ordered. This is unchanged from 07/11/2016. Labs ordered including CBC, CMP, BNP, cardiac panel, coagulation studies and urinalysis. Chest x-ray is ordered. IV access is obtained. Chest x-ray shows very enlarged heart shadow, but no obvious pneumonia, there is atelectasis in the right lower lobe. ProBNP is 706. CBC is remarkable for hemoglobin 11.2. Hematocrit of 32.8. Coagulation studies significant for PTT of 65.2. INR is 5.5. APTT is 58.7. Patient is discussed with Dr. Conn. Patient's sodium is low at 126. BUN is 39. Creatinine is 1.60. Glucose 133. Total bilirubin is 1.4. AST is 54. Alkaline phosphatase is 1:30. Troponin is less than 0.02 Call was placed to the hospitalist for admission. I spoke with Dr. Menendez, and 40 mg Lasix IV were ordered. Dr. Menendez agreed to admit the patient under Dr. Muniz. Diagnosis Primary Impression: CHF (congestive heart failure) Qualified Code: I50.9 - Chronic congestive heart failure, unspecified congestive heart failure type Additional Impressions: Exertional dyspnea Elevated INR Hyponatremia Condition: Stable Darin Hunter September 01, 2016 14:22
[2016-09-01] MEDS ORDERED: SODIUM CHLORIDE 0.9% FLUSH 10 ML FLUSH IVF PRN (14:30)
[2016-09-01 15:02] LABS: AUTOMATED NEUTROPHIL # 3.9 TH/MM3 (1.8-7.7); BASOPHIL % 0.8 % (0.0-2.0); EOSINOPHIL # 0.1 TH/MM3 (0-0.4); HEMATOCRIT 32.8 % (35.0-46.0); HEMO FLAGS DIFF FINAL; LYMPH % 13.7 % (9.0-44.0); LYMPHOCYTE # 0.8 TH/MM3 (1.0-4.8); MEAN CELL VOLUME 94.3 FL (80.0-100.0); MONO % 13.4 % (0.0-8.0); NEUT % 70.1 % (16.0-70.0); PLATELET COUNT 138 TH/MM3 (150-450); RED BLOOD COUNT 3.48 MIL/MM3 (4.00-5.30); WHITE BLOOD COUNT 5.5 TH/MM3 (4.0-11.0)
[2016-09-01 15:28] LABS: APTT (PATIENT) 58.7 SEC (24.3-30.1); INTERNATIONAL NORMALIZED RATIO 5.5 RATIO; PROTHROMBIN TIME - PATIENT 65.2 SEC (9.8-11.6)
[2016-09-01 15:34] LABS: BLOOD, URINE NEG (NEG); GLUCOSE,URINE NEG (NEG); KETONE, URINE NEG (NEG); NITRITE,URINE NEG (NEG); PH, URINE 5.5 (5.0-8.5)
[2016-09-01 15:52] LABS: METHOD OF COLLECTION CATH; URINE COLOR STRAW (YELLW/STRAW)
[2016-09-01 15:53] LABS: COMMENT (UR) CULT NOT INDICATED; CULTURE IF INDICATED CULT NOT INDICATED; WBC, URINE 0-2 /hpf (0-5)
--- NOTE | 2016-09-01 15:53 | RADHPO ---
EXAM DATE/TIME: 09/01/2016 15:23 [facility] COMPARISON: CHEST SINGLE AP, October 19, 2015, 16:56. INDICATIONS : Shortness of breath and weakness. MEDICAL HISTORY : Carcinoma, breast. Hypertension SURGICAL HISTORY : Pacemaker. Left breast lumpectomy ENCOUNTER: Initial ACUITY: 2 weeks PAIN SCORE: 0/10 LOCATION: Bilateral chest FINDINGS: Pacemaker is implanted on the left. The heart is enlarged. Minimal consolidative changes and right p leural effusion are noted. The left lung is clear. CONCLUSION: 1. Increasing interstitial edema. 2. Minimal consolidative changes right base with small right pleural effusion. William Cabezas MD FACR on September 01, 2016 at 15:49 Board Certified Radiologist. This report was verified electronically.
[2016-09-01 16:40] LABS: ALKALINE PHOSPHATASE 130 U/L (45-117); ALT (GPT) 27 U/L (10-53); ANION GAP 10 MEQ/L (5-15); AST (GOT) 54 U/L (15-37); BICARBONATE 26.1 MEQ/L (21.0-32.0); BLOOD UREA NITROGEN 39 MG/DL (7-18); CHLORIDE 87 MEQ/L (98-107); CREATINE KINASE 171 U/L (26-192); GLOMERULAR FILTRATION RATE 30 ML/MIN (>89); MAGNESIUM 1.9 MG/DL (1.5-2.5); TOTAL BILIRUBIN ADULT 1.4 MG/DL (0.2-1.0)
[2016-09-01 16:41] LABS: POTASSIUM 4.8 MEQ/L (3.5-5.1)
[2016-09-01 16:42] LABS: SODIUM (NA) 123 MEQ/L (136-145)
[2016-09-01] MEDS ORDERED: FUROSEMIDE 40 MG/4 ML VIAL IV PUSH ONE (17:00)
[2016-09-01 17:12] LABS: CKMB 2.8 NG/ML (0.5-3.6)
[2016-09-01] MEDS ORDERED: NALOXONE HCL 0.4 MG/ML AMP IV PRN (17:15)
[2016-09-01] MEDS ORDERED: WARFARIN SOD 2 MG TAB PO SCH (17:15)
[2016-09-01] MEDS ORDERED: ACETAMINOPHEN 325 MG TAB PO PRN (17:15)
[2016-09-01] MEDS ORDERED: ONDANSETRON HCL 4 MG/2 ML VIAL IVP PRN (17:15)
[2016-09-01] MEDS ORDERED: SODIUM CHLORIDE 0.9% FLUSH 10 ML FLUSH IV FLUSH PRN (17:15)
--- NOTE | 2016-09-01 17:21 | HHI.HP ---
[facility] Neal Helm M.D. Admission Diagnosis CHF/Hyponatremia Diagnoses: Travel History International Travel<30 Days: No Contact w/Intl Traveler <30 Da: No Traveled to Known Affected Are: No Past Family Social History Reported Medications Reported Meds & Active Scripts Active Klor-Con 10 (Potassium Chloride) 10 Meq Tab 10 Meq PO BID Pantoprazole (Pantoprazole Sodium) 40 Mg Tab 40 Mg PO DAILY Reported Latanoprost Opth Drops (Latanoprost) 0.005% Drops 1 Drop EACH EYE HS Refrigerate until opened. Preservision Areds 2 (Multiple Vitamins W/ Minerals) 1 Cap 1 Cap PO DAILY Vitamin D-1000 (Cholecalciferol) 1,000 Unit Tab 1,000 Units PO DAILY Warfarin 2 Mg Tab 2 Mg PO DAILY Bumetanide 1 Mg Tab 1 Mg PO DAILY Lisinopril 20 Mg Tab 20 Mg PO BID Carvedilol 12.5 Mg Tab 12 Mg PO BID Hydralazine (Hydralazine HCl) 10 Mg Tab 10 Mg PO TID Take with a meal Allergies: Coded Allergies: Amlodipine (Verified Allergy, Severe, Swelling, 09/01/16) Active Ordered Medications Inpatient Medications Acetaminophen (Tylenol) 650 mg Q4H PRN PO TEMP > 100.4; Start 09/01/16 at 17:15 Albuterol/ Ipratropium (Duoneb Neb) 1 ampule Q6HR NEB PRN NEB wheezing; Start 09/01/16 at 17:30; Status UNV Bumetanide (Bumetanide) 1 mg DAILY PO ; Start 09/02/16 at 09:00 Carvedilol (Coreg) 12.5 mg BID PO ; Start 09/01/16 at 21:00 Cholecalciferol (Vitamin D3) 1,000 units DAILY PO ; Start 09/02/16 at 09:00 Furosemide (Lasix Inj) 40 mg ONCE ONCE IV PUSH ; Start 09/01/16 at 17:00; Stop 09/01/16 at 17:05; Status DC Hydralazine HCl (Apresoline) 10 mg TID PO ; Start 09/01/16 at 18:00 Latanoprost (Xalatan 0.005% Opth Soln) 1 drop HS EACH EYE ; Start 09/01/16 at 21 :00 Naloxone HCl (Narcan Inj) 0.4 mg UNSCH PRN IV SEE LABEL COMMENTS; Start at 17:15 Ondansetron HCl (Zofran Inj) 4 mg Q6H PRN IVP NAUSEA OR VOMITING; Start at 17:15 Pantoprazole Sodium (Protonix) 40 mg DAILY PO ; Start 09/02/16 at 09:00 Potassium Chloride (KCl) 10 meq BID PO ; Start 09/01/16 at 21:00 Sodium Chloride (NS Flush) 2 ml BID IV FLUSH ; Start 09/01/16 at 21:00 Warfarin Sodium (Coumadin) 2 mg DAILY PO ; Start 09/01/16 at 17:15; Stop at 17:15; Status DC Physical Exam Vital Signs Vital Signs Date Time Temp Pulse Resp B/P Pulse Ox O2 Delivery O2 Flow Rate FiO2 09/01/16 17:05 66 16 138/88 97 Nasal Cannula 2 09/01/16 14:41 97 Room Air 09/01/16 14:39 97 Room Air 09/01/16 14:20 94 Room Air 09/01/16 13:44 97.8 79 26 130/67 95 Physical Exam GENERAL: This is a well-nourished, well-developed patient, in no apparent distress. SKIN: No rashes, ecchymoses or lesions. Cool and dry. HEAD: Atraumatic. Normocephalic. No temporal or scalp tenderness. EYES: Pupils equal round and reactive. Extraocular motions intact. No scleral icterus. No injection or drainage. ENT: Nose without bleeding, purulent drainage or septal hematoma. Throat without erythema, tonsillar hypertrophy or exudate. Uvula midline. Airway patent. NECK: Trachea midline. No JVD or lymphadenopathy. Supple, nontender, no meningeal signs. CARDIOVASCULAR: Regular rate and rhythm without murmurs, gallops, or rubs. RESPIRATORY: Clear to auscultation. Breath sounds equal bilaterally. No wheezes , rales, or rhonchi. GASTROINTESTINAL: Abdomen soft, non-tender, nondistended. No hepato-splenomegaly , or palpable masses. No guarding. MUSCULOSKELETAL: Extremities without clubbing, cyanosis, or edema. No joint tenderness, effusion, or edema noted. No calf tenderness. Negative Homans sign bilaterally. NEUROLOGICAL: Awake and alert. Cranial nerves II through XII intact. Motor and sensory grossly within normal limits. Five out of 5 muscle strength in all muscle groups. Normal speech. Laboratory Laboratory Tests Test 09/01/16 09/01/16 14:50 15:05 White Blood Count 5.5 Red Blood Count 3.48 Hemoglobin 11.2 Hematocrit 32.8 Mean Corpuscular Volume 94.3 Mean Corpuscular Hemoglobin 32.0 Mean Corpuscular Hemoglobin 34.0 Concent Red Cell Distribution Width 15.0 Platelet Count 138 Mean Platelet Volume 7.6 Neutrophils (%) (Auto) 70.1 Lymphocytes (%) (Auto) 13.7 Monocytes (%) (Auto) 13.4 Eosinophils (%) (Auto) 2.0 Basophils (%) (Auto) 0.8 Neutrophils # (Auto) 3.9 Lymphocytes # (Auto) 0.8 Monocytes # (Auto) 0.7 Eosinophils # (Auto) 0.1 Basophils # (Auto) 0.0 CBC Comment DIFF FINAL Differential Comment Prothrombin Time 65.2 Prothromb Time International 5.5 Ratio Activated Partial 58.7 Thromboplast Time Sodium Level 123 Potassium Level 4.8 Chloride Level 87 Carbon Dioxide Level 26.1 Anion Gap 10 Blood Urea Nitrogen 39 Creatinine 1.60 Estimat Glomerular Filtration 30 Rate Random Glucose 133 Calcium Level 8.9 Magnesium Level 1.9 Total Bilirubin 1.4 Aspartate Amino Transf 54 (AST/SGOT) Alanine Aminotransferase 27 (ALT/SGPT) Alkaline Phosphatase 130 Total Creatine Kinase 171 Creatine Kinase MB 2.8 Troponin I LESS THAN 0.02 B-Type Natriuretic Peptide 706 Total Protein 7.4 Albumin 3.4 Urine Collection Type CATH Urine Color STRAW Urine Turbidity CLEAR Urine pH 5.5 Urine Specific [place] 1.008 Urine Protein NEG Urine Glucose (UA) NEG Urine Ketones NEG Urine Occult Blood NEG Urine Nitrite NEG Urine Bilirubin NEG Urine Leukocyte Esterase NEG Urine WBC 0-2 Microscopic Urinalysis Comment CULT NOT INDICATED Result Diagram: 09/01/16 1450 09/01/16 1450 Assessment and Plan Problem List: (1) CHF (congestive heart failure) (2) Elevated INR (3) Hyponatremia (4) Status post placement of cardiac pacemaker (5) Chronic atrial fibrillation (6) Valvular heart disease (7) Hypertension Problem Qualifiers (1) CHF (congestive heart failure): Qualified Code: I50.9 - Chronic congestive heart failure, unspecified congestive heart failure type (2) Hypertension: Qualified Code: I10 - Essential hypertension Meghan Toney September 01, 2016 17:21
[2016-09-01] MEDS ORDERED: RESP: ALBUTEROL 2.5 MG/IPRATROPIUM 0.5 MG NEB (PRN) NEB (17:30)
[2016-09-01] MEDS: hydrALAZINE HCL 10 MG TAB PO SCH (18:37)
[2016-09-01] MEDS ORDERED: BRIN1SUS2 RIGHT EYE (19:25)
[2016-09-01] MEDS: LATANOPROST 0.005% OPHT SOLN 2.5 ML BTL EACH EYE SCH (21:29)
[2016-09-01] MEDS: POTASSIUM CHLORIDE 10 MEQ CONTROLLED RELEASE TAB PO SCH (21:29)
[2016-09-01] MEDS: SIMBRINZA RIGHT EYE SCH (21:29)
[2016-09-01] MEDS: SODIUM CHLORIDE 0.9% FLUSH 10 ML FLUSH IV FLUSH SCH (21:29)
[2016-09-01] MEDS: CARVEDILOL 12.5 MG TAB PO SCH (21:29)
[2016-09-02] VITALS (7 sets, daily range): BP systolic 112–126; BP diastolic 65–75; PULSE 67–80; RESP 17–22; TEMP 96–97.8; O2SAT 92–95
[2016-09-02] MEDS ORDERED: ACETAMINOPHEN 500 MG CPLT PO PRN (01:30)
[2016-09-02 07:11] LABS: AUTOMATED NEUTROPHIL # 2.7 TH/MM3 (1.8-7.7); BASOPHIL % 0.6 % (0.0-2.0); EOSINOPHIL # 0.1 TH/MM3 (0-0.4); EOSINOPHIL % 2.2 % (0.0-4.0); HEMATOCRIT 31.4 % (35.0-46.0); HEMO FLAGS DIFF FINAL; LYMPH % 19.6 % (9.0-44.0); LYMPHOCYTE # 0.9 TH/MM3 (1.0-4.8); MEAN CELL VOLUME 91.8 FL (80.0-100.0); MEAN CORPUSCULAR HEMOGLOBIN 30.9 PG (27.0-34.0); MEAN CORPUSCULAR HGB CONC 33.7 % (32.0-36.0); MONO % 16.7 % (0.0-8.0); NEUT % 60.9 % (16.0-70.0); PLATELET COUNT 116 TH/MM3 (150-450); RED BLOOD COUNT 3.42 MIL/MM3 (4.00-5.30); RED CELL DISTRIBUTION WIDTH 14.6 % (11.6-17.2); WHITE BLOOD COUNT 4.4 TH/MM3 (4.0-11.0)
[2016-09-02 07:27] LABS: POTASSIUM 4.3 MEQ/L (3.5-5.1)
[2016-09-02 07:30] LABS: BICARBONATE 24.6 MEQ/L (21.0-32.0)
[2016-09-02] MEDS: SIMBRINZA RIGHT EYE SCH ×2 (08:53→21:24)
[2016-09-02] MEDS: CARVEDILOL 12.5 MG TAB PO SCH ×2 (08:54→21:24)
[2016-09-02] MEDS: CHOLECALCIFEROL (VIT D3) 1000 UNIT TAB PO SCH (08:54)
[2016-09-02] MEDS: hydrALAZINE HCL 10 MG TAB PO SCH ×3 (08:54→17:39)
[2016-09-02] MEDS: PANTOPRAZOLE SOD 40 MG DELAYED RELEASE TAB PO SCH (08:54)
[2016-09-02] MEDS: POTASSIUM CHLORIDE 10 MEQ CONTROLLED RELEASE TAB PO SCH ×2 (08:54→21:00)
[2016-09-02] MEDS: BUMETANIDE 1 MG TAB PO SCH (08:54)
[2016-09-02] MEDS: SODIUM CHLORIDE 0.9% FLUSH 10 ML FLUSH IV FLUSH SCH ×2 (08:55→21:00)
[2016-09-02 11:08] LABS: INTERNATIONAL NORMALIZED RATIO 4.7 RATIO; PROTHROMBIN TIME - PATIENT 55.4 SEC (9.8-11.6)
--- NOTE | 2016-09-02 11:45 | MH ---
cc: ZEFERINO COY MD DATE OF ADMISSION: 09/01/2016 CHIEF COMPLAINT Shortness of breath HISTORY OF PRESENT ILLNESS This is a 89-year-old female with past medical-surgical history significant for atrial fibrillation. The patient on Coumadin, arthritis, history of pacemaker placement. History of skin cancer of the nose, hyperlipidemia, congestive heart failure, Hypertension, renal artery angioplasty, history of surgery on the carotid artery bilateral, right cataract surgery, renal artery angioplasty, hysterectomy, left lumpectomy of the breast, pacemaker placement, who came to the ER at [facility] having progressively worsening shortness of breath and lower extremity edema. Also with generalized weakness and shortness of breath on exertion. The patient states she has been coughing up a lot of clear mucus in the past 2 weeks. She denies any fever or chills or change in appetite. The patient states she might have some small amount of decreased urination. She denies any specific complaint of pain but history of chronic lower extremity edema as well as congestive heart failure in the past. She is on Coumadin for atrial fibrillation as well as she is also on Bumex for congestive heart failure. She also has history of for chronic renal failure and other than that nothing significant, On examination the patient, the patient denies any shortness of breath, or complaints, she says she is feeling much better. PAST MEDICAL/SURGICAL HISTORY: As dictated above. SOCIAL HISTORY Denies smoking, drinking or taking any drugs. Lives at home. FAMILY HISTORY Nothing significant. ALLERGIES AMLODIPINE MEDICATIONS: 1. Klor-Con 10 mEq p.o. b.i.d. 2. Protonix 40 mg p.o. daily 3. Latanoprost 0.005% 1 drop each eye at bedtime 4. PreserVision 1 capsule daily 5. vitamin D 1000 units p.o. daily 6. Warfarin 2 mg p.o. daily 7. bumetanide 1 mg p.o. daily, 8. lisinopril 20 mg p.o. b.i.d. 9. Coreg 12.5 mg twice a day 10. hydralazine 10 mg p.o. t.i.d. REVIEW OF SYSTEMS Positive for cough, congestion, shortness of breath, leg edema generalized weakness. All other review of systems are negative. PHYSICAL EXAMINATION IN GENERAL: This is 89-year female laying on the bed not in acute distress. VITAL SIGNS: Temperature 97.8, heart rate 68, respirations 18, blood pressure 118/69, O2 saturation 92%. Monitor nasal cannula. HEAD, EYES, EARS, NOSE, AND THROAT: Normocephalic, atraumatic. EOMI. Oral mucosa moist. NECK: The neck is supple. No visible thyromegaly or neck mass. Trachea central. CARDIOVASCULAR SYSTEM: Regular rate and rhythm. LUNGS: Respiration bilateral mild crackles and wheezing. ABDOMEN: Soft. Bowel sounds. EXTREMITIES: Pitting edema bilateral lower extremity. No joint swelling, erythema. Full range of motion of all extremities. NEUROLOGIC: Awake, alert, oriented x4. No focal deficit. SKIN: Warm and dry. PSYCHIATRIC: The patient cooperative mood, affect is normal. LABORATORY DATA Include CBC shows WBC count 4.4 normal. Hemoglobin 10.6 low matter per 31.4 low, platelet count 116 low, [place] 16.7 high percentage. lymphoid 0.9 low. BMP totally unremarkable. A sodium 125 low. Chloride 89 low, BUN 40 low, creatinine 1.40 high, glucose random. GFR 35 low, troponin-I is less than 0.02 x1. BNP 706 high, alkaline phosphatase 130 high. PT 65.2, INR 4.5, APTT 58.7. Urine examination is normal. Chest x-ray Was done shows increasing interstitial edema. Minimal consolidative changes right base with small right pleural effusion. ASSESSMENT/PLAN 1. This is an 89-year female who came to the ER diagnosed with 2. Shortness of breath with leg edema most likely secondary to acute on chronic congestive heart failure. The patient is on Bumex 1 mg p.o. daily. Will do strict Is and Os daily with fluid restriction to 1.5 liters. This all restriction to 2 grams a day. Patient also chronic. 3. Further recommendation per patient progress. Minimal consolidative changes with right base, with small right pleural effusion, most likely early pneumonia. I will start the patient on Rocephin 1 gram IV daily and Zithromax 500 mg IV daily and DuoNeb nebulization. 4. Hyponatremia which is improving. 5. Chronic renal failure. Will monitor BUN, creatinine. 6. Supratherapuetic INR of the patient, history of atrial fibrillation. The patient was on Coumadin. Coumadin is holding, monitor INR daily. 7. Anemia. Will check B12, folic acid and iron studies. 8. DVT prophylaxis. The patient has supratherapuetic INR. 9. GI prophylaxis Protonix 40 mg p.o. daily. 10. History of hypertension. Continue home medication. 11. We will manage the patient daily basis and make recommendation daily basis. Zeferino Coy MD EA/patrice /10:38 AM /11:30 AM
[2016-09-02] MEDS ORDERED: AZITHROMYCIN INJ 500 MG in SODIUM CHLOR 0.9% 250 ML INJ 250 ML IV ONE (12:00)
[2016-09-02] MEDS: cefTRIAXone INJ 1,000 MG in SODIUM CHLORIDE 0.9% INJ 100 ML IV SCH (12:26)
--- NOTE | 2016-09-02 14:05 | EKG ---
Date Performed: 09/01/2016 Time Performed: 14:23:32 PTAGE: 89 years EKG: Paced ventricular rhythm The underlying cannot be determined and atrial fibrillation is not excluded. Since previous tracing, no significant change noted Abnormal ECG PREVIOUS TRACING : 07/11/2016 21.42 DOCTOR: Sharon Melchor Interpretating Date/Time 09/02/2016 14:03:34
[2016-09-02] MEDS: LATANOPROST 0.005% OPHT SOLN 2.5 ML BTL EACH EYE SCH (21:24)
[2016-09-03] VITALS (9 sets, daily range): BP systolic 101–139; BP diastolic 63–79; PULSE 66–74; RESP 16–20; TEMP 96.1–98; O2SAT 92–98
[2016-09-03 05:46] LABS: AUTOMATED NEUTROPHIL # 3.2 TH/MM3 (1.8-7.7); BASOPHIL % 0.5 % (0.0-2.0); EOSINOPHIL # 0.1 TH/MM3 (0-0.4); HEMATOCRIT 32.8 % (35.0-46.0); HEMO FLAGS DIFF FINAL; LYMPH % 19.9 % (9.0-44.0); MEAN CELL VOLUME 93.8 FL (80.0-100.0); MEAN CORPUSCULAR HEMOGLOBIN 31.4 PG (27.0-34.0); MEAN CORPUSCULAR HGB CONC 33.4 % (32.0-36.0); MONO % 15.6 % (0.0-8.0); PLATELET COUNT 114 TH/MM3 (150-450); RED BLOOD COUNT 3.49 MIL/MM3 (4.00-5.30); RED CELL DISTRIBUTION WIDTH 14.5 % (11.6-17.2); WHITE BLOOD COUNT 5.1 TH/MM3 (4.0-11.0)
[2016-09-03 05:53] LABS: PROTHROMBIN TIME - PATIENT 47.4 SEC (9.8-11.6)
[2016-09-03 06:46] LABS: ALKALINE PHOSPHATASE 114 U/L (45-117); ALT (GPT) 19 U/L (10-53); ANION GAP 11 MEQ/L (5-15); AST (GOT) 28 U/L (15-37); BICARBONATE 24.8 MEQ/L (21.0-32.0); BLOOD UREA NITROGEN 41 MG/DL (7-18); CHLORIDE 88 MEQ/L (98-107); GLOMERULAR FILTRATION RATE 33 ML/MIN (>89); POTASSIUM 4.2 MEQ/L (3.5-5.1); TOTAL BILIRUBIN ADULT 1.6 MG/DL (0.2-1.0)
[2016-09-03 06:49] LABS: SODIUM (NA) 124 MEQ/L (136-145)
[2016-09-03] MEDS: hydrALAZINE HCL 10 MG TAB PO SCH ×3 (08:40→16:09)
[2016-09-03] MEDS: PANTOPRAZOLE SOD 40 MG DELAYED RELEASE TAB PO SCH (08:40)
[2016-09-03] MEDS: CARVEDILOL 12.5 MG TAB PO SCH ×2 (08:40→20:47)
[2016-09-03] MEDS: SIMBRINZA RIGHT EYE SCH ×2 (08:40→20:47)
[2016-09-03] MEDS: POTASSIUM CHLORIDE 10 MEQ CONTROLLED RELEASE TAB PO SCH ×2 (08:40→20:47)
[2016-09-03] MEDS: CHOLECALCIFEROL (VIT D3) 1000 UNIT TAB PO SCH (08:40)
[2016-09-03] MEDS: BUMETANIDE 1 MG TAB PO SCH (08:40)
[2016-09-03] MEDS: SODIUM CHLORIDE 0.9% FLUSH 10 ML FLUSH IV FLUSH SCH ×2 (08:41→20:48)
[2016-09-03] MEDS: cefTRIAXone INJ 1,000 MG in SODIUM CHLORIDE 0.9% INJ 100 ML IV SCH (11:47)
[2016-09-03] MEDS: LATANOPROST 0.005% OPHT SOLN 2.5 ML BTL EACH EYE SCH (20:48)
--- NOTE | 2016-09-03 21:49 | HHI.PR ---
Subjective History of Present Illness Patient feel weak and tired no acute issue. sodium still low but better. Review of Systems Constitutional Constitutional: Fatigue, Weakness Vitals/Results Intake & Output 09/02/16 09/02/16 09/03/16 15:00 23:00 07:00 Intake Total 350 ml 410 ml 120 ml Output Total 600 ml 450 ml Balance 350 ml -190 ml -330 ml Intake Oral 410 ml 120 ml IV Total 350 ml 0 ml Output Urine Total 600 ml 450 ml # Bowel Movements 2 Vital Signs Vital Signs Date Time Temp Pulse Resp B/P Pulse Ox O2 Delivery O2 Flow Rate FiO2 09/03/16 20:53 96.8 70 20 139/79 94 09/03/16 19:53 95 21 09/03/16 19:52 94 21 09/03/16 15:59 97.8 72 18 123/67 97 09/03/16 12:00 98.0 71 19 125/71 93 09/03/16 08:00 97.6 66 18 127/70 92 09/03/16 05:23 96.3 70 16 101/68 98 09/03/16 00:14 96.1 69 18 104/63 97 CBC/BMP: 09/03/16 0500 09/03/16 0500 Lab Results Laboratory Tests Test 09/03/16 05:00 White Blood Count 5.1 TH/MM3 Red Blood Count 3.49 MIL/MM3 Hemoglobin 10.9 GM/DL Hematocrit 32.8 % Mean Corpuscular Volume 93.8 FL Mean Corpuscular Hemoglobin 31.4 PG Mean Corpuscular Hemoglobin 33.4 % Concent Red Cell Distribution Width 14.5 % Platelet Count 114 TH/MM3 Mean Platelet Volume 7.8 FL Neutrophils (%) (Auto) 62.0 % Lymphocytes (%) (Auto) 19.9 % Monocytes (%) (Auto) 15.6 % Eosinophils (%) (Auto) 2.0 % Basophils (%) (Auto) 0.5 % Neutrophils # (Auto) 3.2 TH/MM3 Lymphocytes # (Auto) 1.0 TH/MM3 Monocytes # (Auto) 0.8 TH/MM3 Eosinophils # (Auto) 0.1 TH/MM3 Basophils # (Auto) 0.0 TH/MM3 CBC Comment DIFF FINAL Differential Comment Prothrombin Time 47.4 SEC Prothromb Time International 4.0 RATIO Ratio Sodium Level 124 MEQ/L Potassium Level 4.2 MEQ/L Chloride Level 88 MEQ/L Carbon Dioxide Level 24.8 MEQ/L Anion Gap 11 MEQ/L Blood Urea Nitrogen 41 MG/DL Creatinine 1.50 MG/DL Estimat Glomerular Filtration 33 ML/MIN Rate Random Glucose 86 MG/DL Calcium Level 9.1 MG/DL Total Bilirubin 1.6 MG/DL Aspartate Amino Transf 28 U/L (AST/SGOT) Alanine Aminotransferase 19 U/L (ALT/SGPT) Alkaline Phosphatase 114 U/L Total Protein 6.6 GM/DL Albumin 3.2 GM/DL Physical Exam General General Appearance: No Acute Distress, Comfortable Eyes Eye Exam: Pupils Equal, Pupils Reactive, Sclera White, Extraocular Movement Intact Throat Throat Exam: Oral Mucosa [place] & Moist, Oral Pharynx Normal Neck Neck Exam: Neck Supple, Trachea Midline Pulmonary Resp Exam: Clear Bilaterally, Breath Sounds Equal, No Distress Cardiology CV Exam: Regular, Normal Sinus Rhythm Gastrointestinal/Abdomen GI Exam: Soft, Non-Tender, Bowel Sounds Present Musculoskeletal MS Exam: Normal Tone Integumentary Skin Exam: Clear, Warm, Dry, Intact Extremeties Extremities Exam: Pitting Edema Neurologic Neuro Exam: Alert, Awake, Oriented, Speech Clear, Moving All Extremities, No Focal Deficits VTE Prophylaxis VTE Prophylaxis Meds: Heparin PUD Prophylasis PUD Prophylaxis: Protonix Assessment/Plan Assessment/Plan ASSESSMENT/PLAN This is an 89-year female who came to the ER diagnosed with 1. Shortness of breath with leg edema most likely secondary to acute on chronic congestive heart failure. The patient is on Bumex 1 mg p.o. daily. Will do strict Is and Os daily with fluid restriction to 1.5 liters. This all restriction to 2 grams a day. Patient also chronic. Further recommendation per patient progress. Minimal consolidative changes with right base, with small right pleural effusion, most likely early pneumonia. patient on Rocephin 1 gram IV daily and Zithromax 500 mg IV daily and DuoNeb nebulization. 4. Hyponatremia which is improving. 5. Chronic renal failure. Will monitor BUN, creatinine. 6. Supratherapuetic INR of the patient, history of atrial fibrillation. The patient was on Coumadin. Coumadin is holding, monitor INR daily. 7. Anemia. checked B12, folic acid and iron studies. 8. DVT prophylaxis. The patient has supratherapuetic INR. 9. GI prophylaxis Protonix 40 mg p.o. daily. 10. History of hypertension. Continue home medication. 11. We will manage the patient daily basis and make recommendation daily basis. Discussed Condition with: Patient Zeferino Muniz MD September 03, 2016 21:48
[2016-09-04] VITALS: BP 128/72; PULSE 66; RESP 16; TEMP 96.3; O2SAT 93
[2016-09-04 04:46] VITALS: BP 127/58; PULSE 70; RESP 18; TEMP 96.9; O2SAT 94
[2016-09-04 07:05] LABS: BASOPHIL % 0.7 % (0.0-2.0); EOSINOPHIL # 0.1 TH/MM3 (0-0.4); EOSINOPHIL % 2.2 % (0.0-4.0); HEMO FLAGS DIFF FINAL; LYMPH % 21.7 % (9.0-44.0); LYMPHOCYTE # 1.1 TH/MM3 (1.0-4.8); MEAN CELL VOLUME 93.6 FL (80.0-100.0); MEAN CORPUSCULAR HEMOGLOBIN 30.5 PG (27.0-34.0); MEAN CORPUSCULAR HGB CONC 32.6 % (32.0-36.0); MONO % 18.7 % (0.0-8.0); NEUT % 56.7 % (16.0-70.0); PLATELET COUNT 119 TH/MM3 (150-450); RED BLOOD COUNT 3.53 MIL/MM3 (4.00-5.30); RED CELL DISTRIBUTION WIDTH 14.3 % (11.6-17.2); WHITE BLOOD COUNT 5.2 TH/MM3 (4.0-11.0)
[2016-09-04 07:15] LABS: INTERNATIONAL NORMALIZED RATIO 2.9 RATIO; PROTHROMBIN TIME - PATIENT 33.5 SEC (9.8-11.6)
[2016-09-04 07:24] LABS: CHLORIDE 90 MEQ/L (98-107); SODIUM (NA) 127 MEQ/L (136-145)
[2016-09-04 07:27] LABS: ANION GAP 12 MEQ/L (5-15); BICARBONATE 25.4 MEQ/L (21.0-32.0); BLOOD UREA NITROGEN 37 MG/DL (7-18)
[2016-09-04 07:30] LABS: ALT (GPT) 19 U/L (10-53); AST (GOT) 27 U/L (15-37); GLOMERULAR FILTRATION RATE 42 ML/MIN (>89)
[2016-09-04 07:32] LABS: TOTAL BILIRUBIN ADULT 1.4 MG/DL (0.2-1.0)
[2016-09-04 07:33] LABS: ALKALINE PHOSPHATASE 110 U/L (45-117)
[2016-09-04 08:00] VITALS: BP 126/75; PULSE 69; RESP 16; TEMP 96.3; O2SAT 93
[2016-09-04] MEDS: BUMETANIDE 1 MG TAB PO SCH (08:11)
[2016-09-04] MEDS: POTASSIUM CHLORIDE 10 MEQ CONTROLLED RELEASE TAB PO SCH ×2 (08:11→20:43)
[2016-09-04] MEDS: CARVEDILOL 12.5 MG TAB PO SCH ×2 (08:11→20:43)
[2016-09-04] MEDS: hydrALAZINE HCL 10 MG TAB PO SCH ×3 (08:11→17:48)
[2016-09-04] MEDS: PANTOPRAZOLE SOD 40 MG DELAYED RELEASE TAB PO SCH (08:11)
[2016-09-04] MEDS: CHOLECALCIFEROL (VIT D3) 1000 UNIT TAB PO SCH (08:12)
[2016-09-04] MEDS: SIMBRINZA RIGHT EYE SCH ×2 (08:16→20:44)
[2016-09-04] MEDS: SODIUM CHLORIDE 0.9% FLUSH 10 ML FLUSH IV FLUSH SCH ×2 (08:16→20:43)
--- NOTE | 2016-09-04 08:26 | PQ ---
Physician Query Response Document PATIENT: SAMMI ARTHUR : 1925 ADMIT DATE: 09/01/2016 4:59 PM DISCH DATE: RESPONDING PROVIDER #: EAhmed QUERY TEXT: CHF Acuity and Type Congestive Heart Failure is documented in the Medical Record. Please document the type and acuity (in cludes probable or suspected) Acute on Chronic CHF Such as: Type: -- Systolic -- Diastolic -- Combined -- Other, please specify The patient's Clinical Indicators include: ECHO 07/12/16 left ventricle normal with systolic function normal est Ej Fx 60% no regional abnormalities . Left atrium dilated. right ventricle dilated. Systolic pressure mild increased 46 mm Hg Mitral and tricuspid valve regurgitiation BNP 706 on admission pleural effusion w increasing interstitial edema. Cardiomegaly Query created by: Farzana Villarreal on 09/02/2016 12:10 PM RESPONSE TEXT: Acute on chronic systolic heart failure. Electronically signed by: Zeferino Muniz MD 09/04/2016 8:22 AM
--- NOTE | 2016-09-04 09:28 | HHI.PR ---
Subjective History of Present Illness Patient feel weak and tired no acute issue. sodium low but much better. INR 2.9 Today. Review of Systems Constitutional Constitutional: Fatigue, Weakness Vitals/Results Intake & Output 09/03/16 09/03/16 09/04/16 14:59 22:59 06:59 Intake Total 1270 ml 210 ml 25 ml Output Total 50 ml 1200 ml 500 ml Balance 1220 ml -990 ml -475 ml Intake Oral 420 ml 210 ml 25 ml IV Total 850 ml Output Urine Total 50 ml 1200 ml 500 ml # Bowel Movements 0 Vital Signs Vital Signs Date Time Temp Pulse Resp B/P Pulse Ox O2 Delivery O2 Flow Rate FiO2 09/04/16 08:00 96.3 69 16 126/75 93 09/04/16 04:46 96.9 70 18 127/58 94 09/04/16 00:00 96.3 66 16 128/72 93 09/03/16 20:53 96.8 70 20 139/79 94 09/03/16 20:15 74 09/03/16 19:53 95 21 09/03/16 19:52 94 21 09/03/16 15:59 97.8 72 18 123/67 97 09/03/16 12:00 98.0 71 19 125/71 93 CBC/BMP: 09/04/16 0540 09/04/16 0540 Lab Results Laboratory Tests Test 09/04/16 05:40 White Blood Count 5.2 TH/MM3 Red Blood Count 3.53 MIL/MM3 Hemoglobin 10.8 GM/DL Hematocrit 33.0 % Mean Corpuscular Volume 93.6 FL Mean Corpuscular Hemoglobin 30.5 PG Mean Corpuscular Hemoglobin 32.6 % Concent Red Cell Distribution Width 14.3 % Platelet Count 119 TH/MM3 Mean Platelet Volume 8.0 FL Neutrophils (%) (Auto) 56.7 % Lymphocytes (%) (Auto) 21.7 % Monocytes (%) (Auto) 18.7 % Eosinophils (%) (Auto) 2.2 % Basophils (%) (Auto) 0.7 % Neutrophils # (Auto) 3.0 TH/MM3 Lymphocytes # (Auto) 1.1 TH/MM3 Monocytes # (Auto) 1.0 TH/MM3 Eosinophils # (Auto) 0.1 TH/MM3 Basophils # (Auto) 0.0 TH/MM3 CBC Comment DIFF FINAL Differential Comment Prothrombin Time 33.5 SEC Prothromb Time International 2.9 RATIO Ratio Sodium Level 127 MEQ/L Potassium Level 4.0 MEQ/L Chloride Level 90 MEQ/L Carbon Dioxide Level 25.4 MEQ/L Anion Gap 12 MEQ/L Blood Urea Nitrogen 37 MG/DL Creatinine 1.20 MG/DL Estimat Glomerular Filtration 42 ML/MIN Rate Random Glucose 77 MG/DL Calcium Level 9.0 MG/DL Total Bilirubin 1.4 MG/DL Aspartate Amino Transf 27 U/L (AST/SGOT) Alanine Aminotransferase 19 U/L (ALT/SGPT) Alkaline Phosphatase 110 U/L Total Protein 6.5 GM/DL Albumin 3.0 GM/DL Physical Exam General General Appearance: No Acute Distress, Comfortable Eyes Eye Exam: Pupils Equal, Pupils Reactive, Sclera White, Extraocular Movement Intact Throat Throat Exam: Oral Mucosa [place] & Moist, Oral Pharynx Normal Neck Neck Exam: Neck Supple, Trachea Midline Pulmonary Resp Exam: Clear Bilaterally, Breath Sounds Equal, No Distress Cardiology CV Exam: Regular, Normal Sinus Rhythm Gastrointestinal/Abdomen GI Exam: Soft, Non-Tender, Bowel Sounds Present Musculoskeletal MS Exam: Normal Tone Integumentary Skin Exam: Clear, Warm, Dry, Intact Extremeties Extremities Exam: Pitting Edema Neurologic Neuro Exam: Alert, Awake, Oriented, Speech Clear, Moving All Extremities, No Focal Deficits VTE Prophylaxis VTE Prophylaxis Meds: Heparin PUD Prophylasis PUD Prophylaxis: Protonix Assessment/Plan Assessment/Plan ASSESSMENT/PLAN This is an 89-year female who came to the ER diagnosed with 1. Shortness of breath with leg edema most likely secondary to acute on chronic congestive heart failure. The patient is on Bumex 1 mg p.o. daily. Will do strict Is and Os daily with fluid restriction to 1.5 liters. This all restriction to 2 grams a day. Patient also chronic. Further recommendation per patient progress. Minimal consolidative changes with right base, with small right pleural effusion, most likely early pneumonia. patient on Rocephin 1 gram IV daily and Zithromax 500 mg IV daily and DuoNeb nebulization. 4. Hyponatremia which is improving. 5. Chronic renal failure. Will monitor BUN, creatinine. 6. Supratherapuetic INR of the patient, history of atrial fibrillation. The patient was on Coumadin. Coumadin is holding, monitor INR daily. 7. Anemia. checked B12, folic acid and iron studies. 8. DVT prophylaxis. The patient has therapuetic INR. 9. GI prophylaxis Protonix 40 mg p.o. daily. 10. History of hypertension. Continue home medication. 11. We will manage the patient daily basis and make recommendation daily basis. Discussed Condition with: Patient Zeferino Muniz MD September 04, 2016 09:27
[2016-09-04] MEDS: cefTRIAXone INJ 1,000 MG in SODIUM CHLORIDE 0.9% INJ 100 ML IV SCH (10:46)
[2016-09-04 12:00] VITALS: BP 126/71; PULSE 66; RESP 16; TEMP 96.5; O2SAT 71; O2SAT 93
[2016-09-04 13:53] LABS: TRANSFERRIN IRON PROFILE 214 MG/DL (200-360)
--- NOTE | 2016-09-04 14:07 | RADHPO ---
EXAM DATE/TIME: 09/04/2016 12:50 [place] COMPARISON: CHEST SINGLE AP, September 01, 2016, 15:23. INDICATIONS : Short of breath, bilateral lower extremity swelling. MEDICAL HISTORY : Congestive heart failure. Hypertension SURGICAL HISTORY : Pacemaker. Carotid stent. left lumpectomy ENCOUNTER: Subsequent ACUITY: 3 days PAIN SCORE: 0/10 LOCATION: Bilateral chest FINDINGS: The heart is enlarged. There are bilateral effusions and congestive failure. There is a transvenous p acer in good position. Study is similar to previous dated 09/01/16. CONCLUSION: Cardiomegaly, bilateral effusions and diffuse interstitial prominence most consistent with CHF. Exam is unchanged from prior. Alexander Cabezas MD on September 04, 2016 at 14:04 Board Certified Radiologist. This report was verified electronically.
[2016-09-04] MEDS: WARFARIN SOD 2 MG TAB PO SCH (15:42)
[2016-09-04 16:00] VITALS: BP 143/75; PULSE 67; RESP 16; TEMP 96.5; O2SAT 96
[2016-09-04 20:00] VITALS: BP 134/69; PULSE 65; RESP 20; TEMP 97.5; O2SAT 92
[2016-09-04] MEDS: LATANOPROST 0.005% OPHT SOLN 2.5 ML BTL EACH EYE SCH (20:43)
[2016-09-04] MEDS ORDERED: diphenhydrAMINE HCL 25 MG CAP PO PRN (23:15)
[2016-09-05] VITALS: BP 128/71; PULSE 71; RESP 16; TEMP 96.9; O2SAT 93
[2016-09-05 04:00] VITALS: BP 119/68; PULSE 67; RESP 18; TEMP 96.4; O2SAT 91
[2016-09-05 06:55] LABS: AUTOMATED NEUTROPHIL # 3.8 TH/MM3 (1.8-7.7); BASOPHIL % 0.4 % (0.0-2.0); EOSINOPHIL # 0.1 TH/MM3 (0-0.4); EOSINOPHIL % 1.6 % (0.0-4.0); HEMATOCRIT 32.7 % (35.0-46.0); HEMO FLAGS DIFF FINAL; LYMPH % 17.4 % (9.0-44.0); MEAN CELL VOLUME 93.8 FL (80.0-100.0); MEAN CORPUSCULAR HEMOGLOBIN 30.7 PG (27.0-34.0); MEAN CORPUSCULAR HGB CONC 32.7 % (32.0-36.0); MONO % 16.9 % (0.0-8.0); NEUT % 63.7 % (16.0-70.0); PLATELET COUNT 113 TH/MM3 (150-450); RED BLOOD COUNT 3.49 MIL/MM3 (4.00-5.30); RED CELL DISTRIBUTION WIDTH 14.7 % (11.6-17.2); WHITE BLOOD COUNT 5.9 TH/MM3 (4.0-11.0)
[2016-09-05 07:14] LABS: CHLORIDE 90 MEQ/L (98-107); INTERNATIONAL NORMALIZED RATIO 2.5 RATIO; POTASSIUM 4.1 MEQ/L (3.5-5.1); PROTHROMBIN TIME - PATIENT 29.3 SEC (9.8-11.6); SODIUM (NA) 126 MEQ/L (136-145)
[2016-09-05 07:20] LABS: ANION GAP 10 MEQ/L (5-15); BICARBONATE 26.1 MEQ/L (21.0-32.0); BLOOD UREA NITROGEN 36 MG/DL (7-18)
[2016-09-05 07:23] LABS: ALT (GPT) 18 U/L (10-53); AST (GOT) 30 U/L (15-37); GLOMERULAR FILTRATION RATE 42 ML/MIN (>89)
[2016-09-05 07:25] LABS: TOTAL BILIRUBIN ADULT 1.1 MG/DL (0.2-1.0)
[2016-09-05 07:26] LABS: ALKALINE PHOSPHATASE 120 U/L (45-117)
--- NOTE | 2016-09-05 07:42 | HHI.PR ---
Subjective History of Present Illness Patient feel weak and tired no acute issue. sodium low but much better. INR 2.5 Today. Review of Systems Constitutional Constitutional: Fatigue, Weakness Vitals/Results Intake & Output 09/04/16 09/04/16 09/05/16 15:00 23:00 07:00 Intake Total 1020 ml 125 ml 120 ml Output Total 1350 ml 600 ml Balance -330 ml 125 ml -480 ml Intake Oral 1020 ml 125 ml 120 ml IV Total 0 ml Output Urine Total 1350 ml 600 ml # Bowel Movements 0 Vital Signs Vital Signs Date Time Temp Pulse Resp B/P Pulse Ox O2 Delivery O2 Flow Rate FiO2 09/05/16 04:00 96.4 67 18 119/68 91 09/05/16 00:00 96.9 71 16 128/71 93 09/04/16 20:00 97.5 65 20 134/69 92 09/04/16 16:00 96.5 67 16 143/75 96 09/04/16 12:00 96.5 66 16 126/71 93 09/04/16 08:00 96.3 69 16 126/75 93 CBC/BMP: 09/05/16 0530 09/05/16 0530 Lab Results Laboratory Tests Test 09/05/16 05:30 White Blood Count 5.9 TH/MM3 Red Blood Count 3.49 MIL/MM3 Hemoglobin 10.7 GM/DL Hematocrit 32.7 % Mean Corpuscular Volume 93.8 FL Mean Corpuscular Hemoglobin 30.7 PG Mean Corpuscular Hemoglobin 32.7 % Concent Red Cell Distribution Width 14.7 % Platelet Count 113 TH/MM3 Mean Platelet Volume 7.9 FL Neutrophils (%) (Auto) 63.7 % Lymphocytes (%) (Auto) 17.4 % Monocytes (%) (Auto) 16.9 % Eosinophils (%) (Auto) 1.6 % Basophils (%) (Auto) 0.4 % Neutrophils # (Auto) 3.8 TH/MM3 Lymphocytes # (Auto) 1.0 TH/MM3 Monocytes # (Auto) 1.0 TH/MM3 Eosinophils # (Auto) 0.1 TH/MM3 Basophils # (Auto) 0.0 TH/MM3 CBC Comment DIFF FINAL Differential Comment Prothrombin Time 29.3 SEC Prothromb Time International 2.5 RATIO Ratio Sodium Level 126 MEQ/L Potassium Level 4.1 MEQ/L Chloride Level 90 MEQ/L Carbon Dioxide Level 26.1 MEQ/L Anion Gap 10 MEQ/L Blood Urea Nitrogen 36 MG/DL Creatinine 1.20 MG/DL Estimat Glomerular Filtration 42 ML/MIN Rate Random Glucose 80 MG/DL Calcium Level 8.9 MG/DL Total Bilirubin 1.1 MG/DL Aspartate Amino Transf 30 U/L (AST/SGOT) Alanine Aminotransferase 18 U/L (ALT/SGPT) Alkaline Phosphatase 120 U/L Total Protein 6.5 GM/DL Albumin 3.0 GM/DL Physical Exam General General Appearance: No Acute Distress, Comfortable Eyes Eye Exam: Pupils Equal, Pupils Reactive, Sclera White, Extraocular Movement Intact Throat Throat Exam: Oral Mucosa [place] & Moist, Oral Pharynx Normal Neck Neck Exam: Neck Supple, Trachea Midline Pulmonary Resp Exam: Clear Bilaterally, Breath Sounds Equal, No Distress Cardiology CV Exam: Regular, Normal Sinus Rhythm Gastrointestinal/Abdomen GI Exam: Soft, Non-Tender, Bowel Sounds Present Musculoskeletal MS Exam: Normal Tone Integumentary Skin Exam: Clear, Warm, Dry, Intact Extremeties Extremities Exam: Pitting Edema Neurologic Neuro Exam: Alert, Awake, Oriented, Speech Clear, Moving All Extremities, No Focal Deficits Psychiatric Psych Exam: Appropriate Responses VTE Prophylaxis VTE Prophylaxis Meds: Heparin PUD Prophylasis PUD Prophylaxis: Protonix Assessment/Plan Assessment/Plan ASSESSMENT/PLAN This is an 89-year female who came to the ER diagnosed with 1. Shortness of breath with leg edema most likely secondary to acute on chronic congestive heart failure. The patient is on Bumex 1 mg p.o. daily. Will do strict Is and Os daily with fluid restriction to 1.5 liters. This all restriction to 2 grams a day. Patient also chronic. Further recommendation per patient progress. Minimal consolidative changes with right base, with small right pleural effusion, most likely early pneumonia. patient on Rocephin 1 gram IV daily and Zithromax 500 mg IV daily and DuoNeb nebulization. Recheck CXR. 4. Hyponatremia which is improving. 5. Chronic renal failure. Will monitor BUN, creatinine. 6. Supratherapuetic INR ... normal now patient have history of atrial fibrillation. The patient on Coumadin. monitor INR daily. 7. Anemia. checked B12, folic acid and iron studies. 8. DVT prophylaxis. on coumadin The patient has therapuetic INR. 9. GI prophylaxis Protonix 40 mg p.o. daily. 10. History of hypertension. Continue home medication. 11. We will manage the patient daily basis and make recommendation daily basis. Discussed Condition with: Patient Zeferino Muniz MD September 05, 2016 07:42
[2016-09-05 08:00] VITALS: BP 120/61; PULSE 83; RESP 19; TEMP 95.6; O2SAT 92
[2016-09-05] MEDS: CHOLECALCIFEROL (VIT D3) 1000 UNIT TAB PO SCH (08:30)
[2016-09-05] MEDS: hydrALAZINE HCL 10 MG TAB PO SCH ×3 (08:30→17:20)
[2016-09-05] MEDS: CARVEDILOL 12.5 MG TAB PO SCH ×2 (08:30→21:14)
[2016-09-05] MEDS: POTASSIUM CHLORIDE 10 MEQ CONTROLLED RELEASE TAB PO SCH ×2 (08:30→21:14)
[2016-09-05] MEDS: BUMETANIDE 1 MG TAB PO SCH (08:31)
[2016-09-05] MEDS: SODIUM CHLORIDE 0.9% FLUSH 10 ML FLUSH IV FLUSH SCH ×2 (08:31→21:00)
[2016-09-05] MEDS: PANTOPRAZOLE SOD 40 MG DELAYED RELEASE TAB PO SCH (08:31)
[2016-09-05] MEDS: cefTRIAXone INJ 1,000 MG in SODIUM CHLORIDE 0.9% INJ 100 ML IV SCH (08:32)
[2016-09-05] MEDS: SIMBRINZA RIGHT EYE SCH ×2 (08:48→21:14)
[2016-09-05 11:49] VITALS: BP 120/69; PULSE 72; RESP 18; TEMP 95.9; O2SAT 95
[2016-09-05 16:00] VITALS: BP 154/86; PULSE 72; RESP 18; TEMP 95.9; O2SAT 95
[2016-09-05] MEDS: WARFARIN SOD 2 MG TAB PO SCH (17:20)
[2016-09-05 20:00] VITALS: BP 129/66; PULSE 67; RESP 20; TEMP 96; O2SAT 95
[2016-09-05] MEDS: LATANOPROST 0.005% OPHT SOLN 2.5 ML BTL EACH EYE SCH (21:14)
[2016-09-06] VITALS: BP 124/67; PULSE 73; RESP 20; TEMP 97.8; O2SAT 95
[2016-09-06 03:35] VITALS: PULSE 66
[2016-09-06 04:00] VITALS: BP 129/73; PULSE 78; RESP 20; TEMP 98.1; O2SAT 90
[2016-09-06 07:48] LABS: AUTOMATED NEUTROPHIL # 3.4 TH/MM3 (1.8-7.7); BASOPHIL # 0.1 TH/MM3 (0-0.2); BASOPHIL % 1.6 % (0.0-2.0); EOSINOPHIL # 0.1 TH/MM3 (0-0.4); EOSINOPHIL % 2.5 % (0.0-4.0); HEMATOCRIT 32.5 % (35.0-46.0); HEMO FLAGS DIFF FINAL; LYMPH % 17.4 % (9.0-44.0); MEAN CELL VOLUME 93.8 FL (80.0-100.0); MEAN CORPUSCULAR HEMOGLOBIN 30.9 PG (27.0-34.0); MEAN CORPUSCULAR HGB CONC 32.9 % (32.0-36.0); MONO % 18.6 % (0.0-8.0); NEUT % 59.9 % (16.0-70.0); PLATELET COUNT 126 TH/MM3 (150-450); RED BLOOD COUNT 3.46 MIL/MM3 (4.00-5.30); RED CELL DISTRIBUTION WIDTH 14.7 % (11.6-17.2); WHITE BLOOD COUNT 5.7 TH/MM3 (4.0-11.0)
[2016-09-06 07:59] LABS: CHLORIDE 91 MEQ/L (98-107); POTASSIUM 4.1 MEQ/L (3.5-5.1); SODIUM (NA) 128 MEQ/L (136-145)
[2016-09-06 08:00] VITALS: BP 139/67; PULSE 67; RESP 17; TEMP 97.9; O2SAT 92
[2016-09-06 08:02] LABS: INTERNATIONAL NORMALIZED RATIO 2.4 RATIO; PROTHROMBIN TIME - PATIENT 27.4 SEC (9.8-11.6)
[2016-09-06 08:03] LABS: ANION GAP 10 MEQ/L (5-15); BICARBONATE 26.8 MEQ/L (21.0-32.0); BLOOD UREA NITROGEN 31 MG/DL (7-18)
[2016-09-06 08:06] LABS: ALT (GPT) 19 U/L (10-53); AST (GOT) 30 U/L (15-37); GLOMERULAR FILTRATION RATE 47 ML/MIN (>89)
[2016-09-06 08:08] LABS: TOTAL BILIRUBIN ADULT 1.2 MG/DL (0.2-1.0)
[2016-09-06 08:09] LABS: ALKALINE PHOSPHATASE 117 U/L (45-117)
[2016-09-06] MEDS: CHOLECALCIFEROL (VIT D3) 1000 UNIT TAB PO SCH (08:20)
[2016-09-06] MEDS: CARVEDILOL 12.5 MG TAB PO SCH (08:20)
[2016-09-06] MEDS: PANTOPRAZOLE SOD 40 MG DELAYED RELEASE TAB PO SCH (08:20)
[2016-09-06] MEDS: POTASSIUM CHLORIDE 10 MEQ CONTROLLED RELEASE TAB PO SCH (08:20)
[2016-09-06] MEDS: hydrALAZINE HCL 10 MG TAB PO SCH (08:20)
[2016-09-06] MEDS: SODIUM CHLORIDE 0.9% FLUSH 10 ML FLUSH IV FLUSH SCH (08:20)
[2016-09-06] MEDS: BUMETANIDE 1 MG TAB PO SCH (08:20)
[2016-09-06] MEDS: SIMBRINZA RIGHT EYE SCH (08:23)
--- NOTE | 2016-09-06 08:28 | HHI.PR ---
Subjective History of Present Illness Patient feel better walking no SOB.. no acute issue. sodium low but much better. INR 2.4 Today. ok to dc home today. D/W RN Reshma at bed side. Review of Systems Constitutional Constitutional: Fatigue, Weakness Vitals/Results Intake & Output 09/05/16 09/05/16 09/06/16 15:00 23:00 07:00 Intake Total 960 ml 120 ml 60 ml Output Total 700 ml Balance 260 ml 120 ml 60 ml Intake Oral 960 ml 120 ml 60 ml IV Total 0 ml 0 ml Output Urine Total 700 ml # Voids 2 1 # Bowel Movements 0 0 0 Vital Signs Vital Signs Date Time Temp Pulse Resp B/P Pulse Ox O2 Delivery O2 Flow Rate FiO2 09/06/16 04:00 98.1 78 20 129/73 90 09/06/16 03:35 66 09/06/16 00:00 97.8 73 20 124/67 95 09/05/16 20:00 96.0 67 20 129/66 95 09/05/16 16:00 95.9 72 18 154/86 95 09/05/16 11:49 95.9 72 18 120/69 95 CBC/BMP: 09/06/16 0727 09/06/16 0727 Lab Results Laboratory Tests Test 09/06/16 07:27 White Blood Count 5.7 TH/MM3 Red Blood Count 3.46 MIL/MM3 Hemoglobin 10.7 GM/DL Hematocrit 32.5 % Mean Corpuscular Volume 93.8 FL Mean Corpuscular Hemoglobin 30.9 PG Mean Corpuscular Hemoglobin 32.9 % Concent Red Cell Distribution Width 14.7 % Platelet Count 126 TH/MM3 Mean Platelet Volume 7.7 FL Neutrophils (%) (Auto) 59.9 % Lymphocytes (%) (Auto) 17.4 % Monocytes (%) (Auto) 18.6 % Eosinophils (%) (Auto) 2.5 % Basophils (%) (Auto) 1.6 % Neutrophils # (Auto) 3.4 TH/MM3 Lymphocytes # (Auto) 1.0 TH/MM3 Monocytes # (Auto) 1.1 TH/MM3 Eosinophils # (Auto) 0.1 TH/MM3 Basophils # (Auto) 0.1 TH/MM3 CBC Comment DIFF FINAL Differential Comment Prothrombin Time 27.4 SEC Prothromb Time International 2.4 RATIO Ratio Sodium Level 128 MEQ/L Potassium Level 4.1 MEQ/L Chloride Level 91 MEQ/L Carbon Dioxide Level 26.8 MEQ/L Anion Gap 10 MEQ/L Blood Urea Nitrogen 31 MG/DL Creatinine 1.10 MG/DL Estimat Glomerular Filtration 47 ML/MIN Rate Random Glucose 88 MG/DL Calcium Level 9.1 MG/DL Total Bilirubin 1.2 MG/DL Aspartate Amino Transf 30 U/L (AST/SGOT) Alanine Aminotransferase 19 U/L (ALT/SGPT) Alkaline Phosphatase 117 U/L Total Protein 6.7 GM/DL Albumin 3.2 GM/DL Physical Exam General General Appearance: No Acute Distress, Comfortable Eyes Eye Exam: Pupils Equal, Pupils Reactive, Sclera White, Extraocular Movement Intact Throat Throat Exam: Oral Mucosa [place] & Moist, Oral Pharynx Normal Neck Neck Exam: Neck Supple, Trachea Midline Pulmonary Resp Exam: Clear Bilaterally, Breath Sounds Equal, No Distress Cardiology CV Exam: Regular, Normal Sinus Rhythm Gastrointestinal/Abdomen GI Exam: Soft, Non-Tender, Bowel Sounds Present Musculoskeletal MS Exam: Normal Tone Integumentary Skin Exam: Clear, Warm, Dry, Intact Extremeties Extremities Exam: Pitting Edema Neurologic Neuro Exam: Alert, Awake, Oriented, Speech Clear, Moving All Extremities, No Focal Deficits Psychiatric Psych Exam: Appropriate Responses VTE Prophylaxis VTE Prophylaxis Meds: Heparin PUD Prophylasis PUD Prophylaxis: Protonix Assessment/Plan Assessment/Plan ASSESSMENT/PLAN This is an 89-year female who came to the ER diagnosed with 1. Shortness of breath with leg edema most likely secondary to acute on chronic systolic congestive heart failure. The patient is on Bumex 1 mg p.o. daily. Will do strict Is and Os daily with fluid restriction to 1.5 liters. This all restriction to 2 grams a day. Patient also chronic. Further recommendation per patient progress. Minimal consolidative changes with right base, with small right pleural effusion, most likely early pneumonia. patient on Rocephin 1 gram IV daily and Zithromax 500 mg IV daily and DuoNeb nebulization. Recheck CXR....noted. 4. Hyponatremia which is improving. 5. Chronic renal failure. Will monitor BUN, creatinine. 6. Supratherapuetic INR ... normal now patient have history of atrial fibrillation. The patient on Coumadin. monitor INR daily. 7. Anemia. checked B12, folic acid and iron studies...within normal limits. 8. DVT prophylaxis. on coumadin The patient has therapuetic INR. 9. GI prophylaxis Protonix 40 mg p.o. daily. 10. History of hypertension. Continue home medication. ok to dc home today. f/u with pcp/ cardiology/ pulmonary 1 week. Discussed Condition with: Patient Zeferino Muniz MD September 06, 2016 08:28
[2016-09-06] MEDS ORDERED: CEFT500T3 PO (08:30)
[2016-09-06] MEDS ORDERED: ZITH500T PO (08:30)
--- NOTE | 2016-09-11 08:18 | MD ---
cc: ZEFERINO COY MD ADMISSION DATE: 09/01/2016 DISCHARGE DATE: 09/06/2016 Okay to discharge the patient home. Condition at the time of discharge: Satisfactory. Activity: As tolerated. Diet: Cardiac diet. ALLERGIES AMLODIPINE. DISCHARGE MEDICATIONS 1. Zithromax 500 mg p.o. daily for 7 days. 2. Ceftin 500 mg twice a day for 10 days. 3. Simbrinza ophthalmic drop, 1%/0.2%, one drop right eye twice a day. 4. Bumetanide 1 mg p.o. daily. 5. Carvedilol 12.5 mg twice a day. 6. Vitamin-D 1000 units p.o. daily. 7. Hydralazine 10 mg t.i.d. 8. Latanoprost ophthalmic drops 0.005%, one drop both eyes daily. 9. Lisinopril 20 mg twice a day. 10.Multivitamin p.o. daily. 11.Protonix 40 mg p.o. daily. 12.Potassium chloride 10 mEq p.o. b.i.d. 13.Coumadin 2 mg p.o. daily. SPECIAL INSTRUCTIONS Patient advised to check PT and INR with her primary care doctor in 1-2 days. Patient advised to follow with PCP, cardiology and pulmonary. ADMITTING DIAGNOSIS Shortness of breath secondary to CHF exacerbation, most likely acute on chronic systolic heart failure. DISCHARGE DIAGNOSIS 1. Shortness of breath resolved, acute on chronic systolic heart failure improved. 2. Possible pneumonia. On admission the patient was given IV antibiotics with Rocephin and Zithromax. The patient improved. 3. Hyponatremia which is improved. 4. Chronic renal failure. 5. Super therapeutic INR. 6. Anemia. 7. History of hypertension. HOSPITAL COURSE This is an 89-year-old female who came to the ER diagnosed with shortness of breath secondary to CHF exacerbation, acute on chronic, and also pneumonia. The patient was given empiric antibiotics. The patient had chronic renal failure. Creatinine improved from 1.5 to 1.1. The patient also had hyponatremia which is improved from 123-128. The patient had a super therapeutic INR of 5.5 at the time of admission. At the time of discharge the INR was 2.4. The patient was advised to check INR with her PCP in 1-2 days. The patient's had a folic acid level of 20 and B12 level of 843. The patient had anemia from chronic renal failure. The patient's urinalysis was normal. The patient remained stable. No acute event happened. The patient's chest x-ray shows consolidative changes right base with small right pleural effusion. The patient was discharged in a satisfactory condition, advised to follow with PCP, cardiology and pulmonary. Further details are in the medical record. Zeferino Coy MD EA/NGOZI /8:35 AM /8:07 AM
== END 2016-09-06 14:04 | disposition home or self-care (01) | DRG 291 ==
LOC: PHED 13:26 → PHEDA 16:59 → PH3A 18:14
PROVIDERS: ADMIT Family Medicine; ATTEND Family Medicine
DX: I13.0 Hypertensive heart and chronic kidney disease with heart failure and stage 1 through stage 4 chronic kidney disease, or unspecified chronic kidney disease (principal); I50.23 Acute on chronic systolic (congestive) heart failure; J18.9 Pneumonia, unspecified organism; I48.2 Chronic atrial fibrillation; D64.9 Anemia, unspecified; Z79.01 Long term (current) use of anticoagulants; E87.1 Hypo-osmolality and hyponatremia; E78.5 Hyperlipidemia, unspecified; N18.9 Chronic kidney disease, unspecified; M19.90 Unspecified osteoarthritis, unspecified site; Z95.0 Presence of cardiac pacemaker; Z85.828 Personal history of other malignant neoplasm of skin
CPT/HCPCS: 71010; 71020; 80048; 80053; 81001; 82550; 82552; 82607; 82746; 83540; 83550; 83735; 83880; 84466; 84484; 85025; 85610; 85730; 93005; J0456; J0696; J1940; J7050; P9612

== ENCOUNTER 2016-09-23 15:34 | Inpatient (IN) | payer MEDICARE ==
[2016-09-23] VITALS (8 sets, daily range): BP systolic 108–125; BP diastolic 53–77; PULSE 67–76; RESP 16–18; TEMP 94.8–97.5; O2SAT 91–96
[~2016-09-23] VITALS: Ht 154.9 cm; Wt 62.9 kg
[~2016-09-23 15:34] MED LIST changes: +BRIN1SUS2 RIGHT EYE; +CEFT500T3 PO; +ZITH500T PO
[2016-09-23] MEDS ORDERED: FURO40TA PO (16:16)
[2016-09-23] MEDS ORDERED: SODIUM CHLORIDE 0.9% FLUSH 10 ML FLUSH IVF PRN (16:30)
--- NOTE | 2016-09-23 16:41 | PD ---
HPI Chief Complaint: Complaint Time Seen by Provider: 16:05 Travel History International Travel<30 days: No Contact w/Intl Traveler<30days: No Traveled to known affect area: No History of Present Illness HPI 89 Year old female arrives complaining of decreased urination. She believes she might be suffering with kidney failure. She reports occasional shortness of breath however none with exertion and no orthopnea. Evidently Dr. Horne of cardiology suggested the patient might be suffering from renal failure several days ago. Relative oliguria has evolved over the last 2 weeks or so and gradually worsening. PFSH Past Medical History Hx Anticoagulant Therapy: Yes (COUMADIN ) Arthritis: Yes Autoimmune Disease: No Heart Rhythm Problems: Yes (PACEMAKER) Cancer: Yes (SKIN CA OF NOSE) Cardiovascular Problems: Yes High Cholesterol: Yes Chest Pain: No Congestive Heart Failure: Yes Diminished Hearing: No Endocrine: No Genitourinary: Yes Hypertension: Yes Immune Disorder: No Implanted Vascular Access Dvce: Yes Kidney Stones: No Musculoskeletal: Yes Neurologic: No Psychiatric: No Reproductive: No Respiratory: Yes (CHF) Integumentary: Yes (SKIN CA OF NOSE -) Radiation Therapy: Yes (SKIN CA OF NOSE - CURRENT) Renal Failure: Yes (RENAL ARTERY ANGIOPLASTY ) Influenza Vaccination: Yes ?: Not Past Surgical History Abdominal Surgery: No Body Medical Devices: "shims" in her back between a few discs" Cardiac Surgery: Yes (SURGERY ON CAROTID ARTERIES bilateral ) Coronary Stent: Yes (LEFT AND RIGHT CAROTID) Ear Surgery: No Eye Surgery: Yes (RIGHT CATARACT) Genitourinary Surgery: Yes (RENAL ARTERY ANGIOPLASTY) Gynecologic Surgery: Yes (HYSTERECTOMY) Hysterectomy: Yes Oral Surgery: No Pacemaker: Yes Thoracic Surgery: No Tonsillectomy: Yes Other Surgery: Yes (L. LUMPECTOMY ) Social History Alcohol Use: No Tobacco Use: No Substance Use: No Allergies-Medications (Allergen,Severity, Reaction): Coded Allergies: Amlodipine (Verified Allergy, Severe, Swelling, 09/23/16) Reported Meds & Prescriptions Reported Meds & Active Scripts Active Klor-Con 10 (Potassium Chloride) 10 Meq Tab 10 Meq PO BID Pantoprazole (Pantoprazole Sodium) 40 Mg Tab 40 Mg PO DAILY Reported Furosemide 40 Mg Tab 40 Mg PO BID Simbrinza Opth Drops (Brinzolamide-Brimonidine Opth Drops) 1-0.2% Susp 1 Drop RIGHT EYE BID Latanoprost Opth Drops (Latanoprost) 0.005% Drops 1 Drop EACH EYE HS Refrigerate until opened. Preservision Areds 2 (Multiple Vitamins W/ Minerals) 1 Cap 1 Cap PO DAILY Vitamin D-1000 (Cholecalciferol) 1,000 Unit Tab 1,000 Units PO DAILY Warfarin 2 Mg Tab 2 Mg PO DAILY Lisinopril 20 Mg Tab 20 Mg PO BID Carvedilol 12.5 Mg Tab 12 Mg PO BID Hydralazine (Hydralazine HCl) 10 Mg Tab 10 Mg PO TID Take with a meal Review of Systems Except as stated in HPI: all other systems reviewed are Neg Physical Exam Narrative GENERAL: 89 yo F, pleasant, NAD SKIN: Warm and dry. HEAD: Atraumatic. Normocephalic. EYES: Pupils equal and round. No scleral icterus. No injection or drainage. ENT: No nasal bleeding or discharge. Mucous membranes pink and moist. NECK: Trachea midline. No JVD. CARDIOVASCULAR: Regular rate and rhythm. RESPIRATORY: No accessory muscle use. Clear to auscultation. Breath sounds equal bilaterally. GASTROINTESTINAL: Abdomen soft, non-tender, nondistended. Hepatic and splenic margins not palpable. MUSCULOSKELETAL: Two plus pitting edema bilateral lower extremities. No gross deformity otherwise. NEUROLOGICAL: Awake and alert. No obvious cranial nerve deficits. Motor grossly within normal limits. Five out of 5 muscle strength in the arms and legs. Normal speech. PSYCHIATRIC: Appropriate mood and affect; insight and judgment normal. Data Data Last Documented VS Vital Signs Date Time Temp Pulse Resp B/P Pulse Ox O2 Delivery O2 Flow Rate FiO2 09/23/16 18:23 72 18 125/67 95 Room Air 09/23/16 16:47 96.6 VS reviewed Orders Urinalysis - C+S If Indicated (09/23/16 15:54) Electrocardiogram (09/23/16 16:20) Basic Metabolic Panel (Bmp) (09/23/16 16:20) B-Type Natriuretic Peptide (09/23/16 16:20) Ckmb (Isoenzyme) Profile (09/23/16 16:20) Complete Blood Count With Diff (09/23/16 16:20) Magnesium (Mg) (09/23/16 16:20) Prothrombin Time / Inr (Pt) (09/23/16 16:20) Act Partial Throm Time (Ptt) (09/23/16 16:20) Troponin I (09/23/16 16:20) Chest, Single Ap (09/23/16 16:20) Ecg Monitoring (09/23/16 16:20) Iv Access Insert/Monitor (09/23/16 16:20) Oximetry (09/23/16 16:20) Oxygen Administration (09/23/16 16:20) Sodium Chloride 0.9% Flush (Ns Flush) (09/23/16 16:30) CKMB (09/23/16 16:30) CKMB% (09/23/16 16:30) Phytonadione Inj (Vitamin K Inj) (09/23/16 18:00) Admit Order (Ed Use Only) (09/23/16 18:56) Admit To Inpatient (09/23/16 ) Vital Signs (Adult) Q4H (09/23/16 18:56) Vehicle Return Associate / Telemetry .CONTINUOUS (09/23/16 18:56) Intake + Output CRISTINA.QSHIFT (09/23/16 18:56) Diet Heart Healthy (09/23/16 Dinner) Sodium Chloride 0.9% Flush (Ns Flush) (09/23/16 19:00) Sodium Chloride 0.9% Flush (Ns Flush) (09/23/16 21:00) Acetaminophen (Tylenol) (09/23/16 19:00) Ondansetron Inj (Zofran Inj) (09/23/16 19:00) Basic Metabolic Panel (Bmp) (09/24/16 06:00) Complete Blood Count With Diff (09/24/16 06:00) Troponin I (09/23/16 18:56) Troponin I (09/24/16 00:56) Prothrombin Time / Inr (Pt) (09/24/16 06:00) Resp Oxygen Jed C Titrat 1-4 L (09/23/16 ) Pt Request For Service (09/23/16 18:56) Scd Bilateral/Knee High CRISTINA.BID (09/23/16 18:56) Naloxone Inj (Narcan Inj) (09/23/16 19:00) Docusate Sodium-Senna (Saloni-Colace) (09/23/16 21:00) Magnesium Hydroxide Liq (Milk Of Magnesi (09/23/16 19:00) Sennosides (Senokot) (09/23/16 19:00) Bisacodyl Supp (Dulcolax Supp) (09/23/16 19:00) Lactulose Liq (Lactulose Liq) (09/23/16 19:00) Inpatient Certification (09/23/16 ) Consult Cardiology (09/23/16 ) Consult Nephrology (09/23/16 ) Labs Laboratory Tests Test 09/23/16 09/23/16 16:30 18:15 White Blood Count 4.7 TH/MM3 Red Blood Count 3.51 MIL/MM3 Hemoglobin 11.1 GM/DL Hematocrit 32.5 % Mean Corpuscular Volume 92.6 FL Mean Corpuscular Hemoglobin 31.6 PG Mean Corpuscular Hemoglobin 34.1 % Concent Red Cell Distribution Width 14.9 % Platelet Count 135 TH/MM3 Mean Platelet Volume 7.8 FL Neutrophils (%) (Auto) 61.2 % Lymphocytes (%) (Auto) 19.2 % Monocytes (%) (Auto) 16.7 % Eosinophils (%) (Auto) 1.9 % Basophils (%) (Auto) 1.0 % Neutrophils # (Auto) 2.9 TH/MM3 Lymphocytes # (Auto) 0.9 TH/MM3 Monocytes # (Auto) 0.8 TH/MM3 Eosinophils # (Auto) 0.1 TH/MM3 Basophils # (Auto) 0.0 TH/MM3 CBC Comment DIFF FINAL Differential Comment Prothrombin Time 117.5 SEC Prothromb Time International 9.6 RATIO Ratio Activated Partial 79.7 SEC Thromboplast Time Sodium Level 125 MEQ/L Potassium Level 5.1 MEQ/L Chloride Level 89 MEQ/L Carbon Dioxide Level 24.5 MEQ/L Anion Gap 12 MEQ/L Blood Urea Nitrogen 67 MG/DL Creatinine 2.10 MG/DL Estimat Glomerular Filtration 22 ML/MIN Rate Random Glucose 114 MG/DL Calcium Level 9.2 MG/DL Magnesium Level 2.1 MG/DL Total Creatine Kinase 104 U/L Creatine Kinase MB 4.3 NG/ML Troponin I 0.02 NG/ML B-Type Natriuretic Peptide 674 PG/ML Urine Color YELLOW Urine Turbidity CLEAR Urine pH 5.5 Urine Specific [place] 1.008 Urine Protein NEG mg/dL Urine Glucose (UA) NEG mg/dL Urine Ketones NEG mg/dL Urine Occult Blood NEG Urine Nitrite NEG Urine Bilirubin NEG Urine Leukocyte Esterase NEG Urine RBC 0-2 /hpf Urine WBC 0-2 /hpf Urine Squamous Epithelial 0-5 /hpf Cells Urine Bacteria NONE /hpf Microscopic Urinalysis Comment CULT NOT INDICATED MDM Medical Decision Making Medical Screen Exam Complete: Yes Emergency Medical Condition: Yes Medical Record Reviewed: Yes Differential Diagnosis Renal failure, CHF, anemia, electrolyte imbalance Narrative Course CBC & BMP Diagram 09/23/16 16:30 BNP 674 Tn 0.02 INR 9.6 Admission for CHF, relatively acute renal failure, and elevated INR. d/w Dr Wyman for [facility]. Diagnosis Primary Impression: Elevated INR Additional Impressions: CHF (congestive heart failure) Qualified Code: I50.9 - Congestive heart failure, unspecified congestive heart failure chronicity, unspecified congestive heart failure type Bilateral pleural effusion Atelectasis of right lung Admitting Information Admitting Physician Requests: Observation Alexander Ortega MD Sep 23, 2016 16:41
[2016-09-23 16:45] LABS: AUTOMATED NEUTROPHIL # 2.9 TH/MM3 (1.8-7.7); EOSINOPHIL # 0.1 TH/MM3 (0-0.4); EOSINOPHIL % 1.9 % (0.0-4.0); HEMATOCRIT 32.5 % (35.0-46.0); HEMO FLAGS DIFF FINAL; LYMPH % 19.2 % (9.0-44.0); LYMPHOCYTE # 0.9 TH/MM3 (1.0-4.8); MEAN CELL VOLUME 92.6 FL (80.0-100.0); MEAN CORPUSCULAR HEMOGLOBIN 31.6 PG (27.0-34.0); MEAN CORPUSCULAR HGB CONC 34.1 % (32.0-36.0); MONO % 16.7 % (0.0-8.0); NEUT % 61.2 % (16.0-70.0); PLATELET COUNT 135 TH/MM3 (150-450); RED BLOOD COUNT 3.51 MIL/MM3 (4.00-5.30); RED CELL DISTRIBUTION WIDTH 14.9 % (11.6-17.2); WHITE BLOOD COUNT 4.7 TH/MM3 (4.0-11.0)
[2016-09-23 16:48] LABS: CHLORIDE 89 MEQ/L (98-107); POTASSIUM 5.1 MEQ/L (3.5-5.1); SODIUM (NA) 125 MEQ/L (136-145)
[2016-09-23 16:52] LABS: ANION GAP 12 MEQ/L (5-15); BICARBONATE 24.5 MEQ/L (21.0-32.0); BLOOD UREA NITROGEN 67 MG/DL (7-18); MAGNESIUM 2.1 MG/DL (1.5-2.5)
[2016-09-23 16:55] LABS: APTT (PATIENT) 79.7 SEC (24.3-30.1); GLOMERULAR FILTRATION RATE 22 ML/MIN (>89); PROTHROMBIN TIME - PATIENT 117.5 SEC (9.8-11.6)
[2016-09-23 16:58] LABS: CREATINE KINASE 104 U/L (26-192)
[2016-09-23 17:10] LABS: CKMB 4.3 NG/ML (0.5-3.6)
[2016-09-23 17:36] LABS: INTERNATIONAL NORMALIZED RATIO 9.6 RATIO
--- NOTE | 2016-09-23 17:50 | RADHPO ---
EXAM DATE/TIME: 09/23/2016 16:23 [facility] COMPARISON: CHEST SINGLE AP, September 01, 2016, 15:23. INDICATIONS : Cough. MEDICAL HISTORY : Congestive heart failure. Hypertension SURGICAL HISTORY : Pacemaker. Carotid stent. Lumpectomy, left. ENCOUNTER: Initial ACUITY: 3 days PAIN SCORE: 0/10 LOCATION: Bilateral chest FINDINGS: The heart is enlarged, similar to prior. Cardiac pacer lead in place. There is a meniscal interface in the right lower chest suggesting pleural effusion. There is hazy opacity in the left lower lung without consolidation. Possible meniscal interface and costophrenic angle left. CONCLUSION: Findings suggest bilateral pleural effusions and possible non-consolidative lower lung infiltrates. Cardiomegaly is stable to prior. Reilly Matias MD on September 23, 2016 at 17:47 Board Certified Radiologist. This report was verified electronically.
[2016-09-23] MEDS ORDERED: PHYTONADIONE 10 MG/ML VIAL SQ ONE (18:00)
[2016-09-23 18:46] LABS: BLOOD, URINE NEG (NEG); GLUCOSE,URINE NEG (NEG); KETONE, URINE NEG (NEG); NITRITE,URINE NEG (NEG); PH, URINE 5.5 (5.0-8.5)
[2016-09-23 18:49] LABS: URINE COLOR YELLOW (YELLW/STRAW)
[2016-09-23 18:51] LABS: COMMENT (UR) CULT NOT INDICATED; CULTURE IF INDICATED CULT NOT INDICATED; RBC, URINE 0-2 /hpf (0-3); SQUAMOUS EPITHELIAL CELL URINE 0-5 /hpf (0-5); WBC, URINE 0-2 /hpf (0-5)
[2016-09-23] MEDS ORDERED: SODIUM CHLORIDE 0.9% FLUSH 10 ML FLUSH IV FLUSH PRN (19:00)
[2016-09-23] MEDS ORDERED: ACETAMINOPHEN 325 MG TAB PO PRN (19:00)
[2016-09-23] MEDS ORDERED: ONDANSETRON HCL 4 MG/2 ML VIAL IVP PRN (19:00)
[2016-09-23] MEDS ORDERED: MAGNESIUM HYDROXIDE SUSP 30 ML CUP PO PRN (19:00)
[2016-09-23] MEDS ORDERED: LACTULOSE SYRUP 20 GM/30 ML CUP PO PRN (19:00)
[2016-09-23] MEDS ORDERED: BISACODYL 10 MG SUPP RECTAL PRN (19:00)
[2016-09-23] MEDS ORDERED: NALOXONE HCL 0.4 MG/ML AMP IV PRN (19:00)
[2016-09-23] MEDS ORDERED: SENNOSIDES 8.6 MG TAB PO PRN (19:00)
[2016-09-23] MEDS: SODIUM CHLORIDE 0.9% FLUSH 10 ML FLUSH IV FLUSH SCH (21:00)
[2016-09-23] MEDS: DOCUSATE SODIUM 50 MG/SENNA 8.6 MG TAB PO SCH (21:00)
[2016-09-24 00:47] VITALS: BP 120/80; PULSE 72; RESP 16; TEMP 98; O2SAT 94
[2016-09-24 04:52] VITALS: BP 109/79; PULSE 80; RESP 18; TEMP 97.9; O2SAT 96
[2016-09-24 08:00] VITALS: BP 101/57; PULSE 73; RESP 20; TEMP 96.6; O2SAT 90; O2SAT 93
[2016-09-24] MEDS: DOCUSATE SODIUM 50 MG/SENNA 8.6 MG TAB PO SCH ×2 (08:07→20:34)
[2016-09-24] MEDS: SODIUM CHLORIDE 0.9% FLUSH 10 ML FLUSH IV FLUSH SCH ×2 (08:07→20:34)
[2016-09-24 08:48] LABS: AUTOMATED NEUTROPHIL # 3.3 TH/MM3 (1.8-7.7); BASOPHIL % 0.8 % (0.0-2.0); EOSINOPHIL # 0.1 TH/MM3 (0-0.4); EOSINOPHIL % 1.4 % (0.0-4.0); HEMATOCRIT 31.4 % (35.0-46.0); HEMO FLAGS DIFF FINAL; LYMPH % 17.2 % (9.0-44.0); LYMPHOCYTE # 0.9 TH/MM3 (1.0-4.8); MEAN CELL VOLUME 92.6 FL (80.0-100.0); MEAN CORPUSCULAR HEMOGLOBIN 31.2 PG (27.0-34.0); MEAN CORPUSCULAR HGB CONC 33.7 % (32.0-36.0); MONO % 16.3 % (0.0-8.0); NEUT % 64.3 % (16.0-70.0); PLATELET COUNT 130 TH/MM3 (150-450); RED BLOOD COUNT 3.39 MIL/MM3 (4.00-5.30); RED CELL DISTRIBUTION WIDTH 14.8 % (11.6-17.2); WHITE BLOOD COUNT 5.1 TH/MM3 (4.0-11.0)
[2016-09-24 08:55] LABS: POTASSIUM 5.2 MEQ/L (3.5-5.1)
[2016-09-24 08:59] LABS: INTERNATIONAL NORMALIZED RATIO 5.3 RATIO; PROTHROMBIN TIME - PATIENT 63.2 SEC (9.8-11.6)
[2016-09-24 09:03] LABS: BICARBONATE 23.1 MEQ/L (21.0-32.0)
[2016-09-24] MEDS: CARVEDILOL 12.5 MG TAB PO SCH ×2 (09:55→20:34)
--- NOTE | 2016-09-24 10:13 | MB ---
cc: FREDIS BEE DO DATE OF CONSULTATION: September 24, 2016 REASON FOR CONSULTATION Acute heart failure with acute kidney injury. HISTORY OF PRESENT ILLNESS Mariella Chirinos is a pleasant 89-year-old female who presents to [facility] Emergency Room due to a decrease in her urine output. She sees my partner Dr. Horne in the office who suggested to the patient a few days ago that she may be suffering from renal failure due to her decreased urine output and suggests she come to the hospital. Per the patient other than not urinating as much as she previously did, she has no other complaints. She denies chest pain or palpitations. She does have some shortness of breath with walking but she states this is chronic. She denies current orthopnea. PAST MEDICAL HISTORY 1. Chronic heart failure with a normal ejection fraction. 2. Atrial fibrillation. 3. Arthritis. 4. Hyperlipidemia. 5. Hypertension. PAST SURGICAL HISTORY 1. Placement of a Biotronik Evia pacemaker (October 19, 2015 for symptomatic bradycardia). 2. Bilateral carotid endarterectomy. 3. History of renal artery angioplasty. 4. Right cataract surgery. 5. Hysterectomy. 6. Left lumpectomy of the breast. ALLERGIES AMLODIPINE. MEDICATIONS 1. Lisinopril 20 mg b.i.d. 2. Coumadin 2 mg daily. 3. Coreg 12.5 mg b.i.d. 4. Simbrinza ophthalmic drops right eye b.i.d. 5. Lasix 40 mg b.i.d. 6. Hydralazine 10 mg t.i.d. 7. Latanoprost 1 drop each eye every night. 8. Protonix 40 mg daily. 9. Potassium 10 mEq b.i.d. SOCIAL HISTORY Denies smoking, alcohol or drug abuse. She lives at home by herself and has a daughter close by that helps her. FAMILY HISTORY Denies premature coronary artery disease or sudden cardiac within the family. REVIEW OF SYSTEMS 14-systems were reviewed including osteopathic pertinent positives and negatives above, otherwise negative. PHYSICAL EXAMINATION VITAL SIGNS: Temperature 97.9, heart rate 80, blood pressure 109/79, respirations 18, pulse ox 96% on room air. GENERAL: In general the patient appears well, in no acute distress, alert, awake and oriented x3. HEENT: Extraocular muscles intact. Mucous membranes moist. NECK: Neck is supple with minimal JVD noted at 45 degrees. HEART: Heart is regular rate and rhythm. Positive first and second heart sounds with a 1/6 holosystolic murmur noted along the left sternal border. LUNGS: Lungs have decreased breath sounds at bilateral bases with minimal rales. ABDOMEN: Abdomen is soft, nontender, nondistended. No organomegaly noted. EXTREMITIES: Show 1-2+ pitting edema with mild erythema. NEUROLOGIC: No focal deficits. SKIN: Warm, dry and intact. OSTEOPATHIC: Mild kyphoscoliosis, no lordosis or paraspinal tender points. LABORATORY FINDINGS Hemoglobin 10.6, hematocrit 31.4, platelets 130. INR 9.6 decreasing to 5.3. Sodium 127, potassium 5.2, BUN 72, creatinine 2.0, troponin negative x3. BNP 674. ELECTROCARDIOGRAM Electrocardiogram (September 23, 2016 at 1651) most likely V-paced with underlying atrial fibrillation. No significant change from September 01, 2016. IMPRESSION 1. Acute on chronic renal failure. 2. Acute on chronic congestive heart failure with a normal ejection fraction. 3. Ejection fraction of 60%, mild to moderate mitral regurgitation, severe tricuspid regurgitation by echocardiogram (July 12, 2016). 4. Supra-therapeutic INR. 5. Hyponatremia. 6. History of hypertension. 7. History of hyperlipidemia. 8. Peripheral artery disease with a history of bilateral carotid endarterectomy and renal artery angioplasty. 9. History of symptomatic bradycardia status post permanent pacemaker placement. 10. History of atrial fibrillation on Coumadin. RECOMMENDATIONS 1. Ms. Chirinos presented with acute kidney injury and decreased urinary output. This may be due to being on CHARITY inhibitor outpatient as well as a component of acute on chronic heart failure. 2. Nephrology has been consulted for their recommendations with her current creatinine level. 3. She was also supra-therapeutic on her INR which may be due to fluid overload and hepatic congestion. She has been given one dose of vitamin K and we will continue to follow her INRs daily. 4. Will await nephrology consultation but I believe that overall Ms. Chirinos may need to be gently diuresed and CHARITY inhibitors stopped. 5. My only concern with this is that her BNP is at a level that is lower than her previous admissions and x-rays are not significantly changed from previous, so there may be more than just acute heart failure causing her acute kidney injury at this time. Thank you for allowing me to see Mariella Chirinos. If there are any questions, please do not hesitate to call. Fredis eBe DO VGP/TLL /9:04 AM /9:49 AM MTDPage
--- NOTE | 2016-09-24 10:39 | PD.CONS ---
[facility] Service Nephrology Consult Requested By Reason for Consult Acute on chronic kidney disease Primary Care Physician Neal Helm M.D. History of Present Illness Ms Chirinos is an 89 year old, admitted with history of decreased urine output. Her creatinine was 1.10 on 09/06/16 which appears to be her baseline. Patient's creatinine was 2.1 on arrival. She carries a diagnosis of heart failure although echo in 07/07 revealed EF of 60 %, and mild pulmonary hypertension. She reports that for the past 1 week she has noticed worsening swelling of the lower extremities. She was taking Bumex 1 mg PO daily in the past but from about 6 days ago she started taking Furosemide 40 mg PO BID. Patient was told that she may have developed renal failure and advised admission. She was recently admitted to this facility with shortness of breath. Diagnosed with acute on chronic heart failure along with pneumonia. Patient has chronic hyponatremia. Review of Systems Constitutional: COMPLAINS OF: Fatigue, DENIES: Fever Ears, nose, mouth, throat: DENIES: Vertigo Cardiovascular: COMPLAINS OF: Dyspnea on Exertion, Lower Extremity Edema, DENIES: Chest pain, Palpitations Gastrointestinal: DENIES: Abdominal pain, Black stools Musculoskeletal: DENIES: Joint pain Past Family Social History Allergies: Coded Allergies: Amlodipine (Verified Allergy, Severe, Swelling, 09/23/16) Past Medical History Hypertension Hyperlipidemia Atrial fibrillation. Osteoarthritis. Possible CKD stage III Past Surgical History Renal artery angioplasty. Bilateral carotid artery endarterectomies Hysterectomy Cataract surgery. Pacemaker placement. Left breast lumpectomy Reported Medications Klor-Con 10 (Potassium Chloride) 10 Meq Tab 10 Meq PO BID Pantoprazole (Pantoprazole Sodium) 40 Mg Tab 40 Mg PO DAILY Reported Furosemide 40 Mg Tab 40 Mg PO BID Simbrinza Opth Drops (Brinzolamide-Brimonidine Opth Drops) 1-0.2% Susp 1 Drop RIGHT EYE BID Latanoprost Opth Drops (Latanoprost) 0.005% Drops 1 Drop EACH EYE HS Refrigerate until opened. Preservision Areds 2 (Multiple Vitamins W/ Minerals) 1 Cap 1 Cap PO DAILY Vitamin D-1000 (Cholecalciferol) 1,000 Unit Tab 1,000 Units PO DAILY Warfarin 2 Mg Tab 2 Mg PO DAILY Lisinopril 20 Mg Tab 20 Mg PO BID Carvedilol 12.5 Mg Tab 12 Mg PO BID Hydralazine (Hydralazine HCl) 10 Mg Tab 10 Mg PO TID Take with a meal Active Ordered Medications Current Medications Medications (Trade) Dose Ordered Sig/Debi Route Start Time Stop Time Status Last Admin (NS Flush) 2 ml UNSCH PRN IV FLUSH 09/23/16 19:00 (NS Flush) 2 ml BID IV FLUSH 09/23/16 21:00 09/24/16 08:07 (Tylenol) 650 mg Q4H PRN PO 09/23/16 19:00 (Zofran Inj) 4 mg Q6H PRN IVP 09/23/16 19:00 (Narcan Inj) 0.4 mg UNSCH PRN IV 09/23/16 19:00 (Saloni-Colace) 1 tab BID PO 09/23/16 21:00 09/24/16 08:07 (Milk Of Magnesia Liq) 30 ml Q12H PRN PO 09/23/16 19:00 (Senokot) 17.2 mg Q12H PRN PO 09/23/16 19:00 (Dulcolax Supp) 10 mg DAILY PRN RECTAL 09/23/16 19:00 (Lactulose Liq) 30 ml DAILY PRN PO 09/23/16 19:00 (Coreg) 12.5 mg BID PO 09/24/16 10:00 09/24/16 09:55 Family History reviewed and non contributory Social History lives by herself, no tobacco or ETOH Physical Exam Vital Signs Vital Signs Date Time Temp Pulse Resp B/P Pulse Ox O2 Delivery O2 Flow Rate FiO2 09/24/16 08:00 96.6 73 20 101/57 90 09/24/16 04:52 97.9 80 18 109/79 96 09/24/16 00:47 98.0 72 16 120/80 94 09/23/16 23:20 92 21 09/23/16 21:40 97.5 71 16 125/77 91 09/23/16 21:40 97.5 71 16 125/77 91 09/23/16 20:30 74 18 112/61 95 Room Air 09/23/16 19:00 76 16 108/53 95 Room Air 09/23/16 18:23 72 18 125/67 95 Room Air 09/23/16 16:47 96.6 68 18 120/64 95 Room Air 09/23/16 16:45 18 95 Room Air 09/23/16 15:39 94.8 67 17 119/63 96 Physical Exam GENERAL: frail, elderly, she is alert, awake, not in distress. SKIN: Warm and dry. HEAD: Normocephalic. EYES: No scleral icterus. No injection or drainage. NECK: Supple, trachea midline. No JVD or lymphadenopathy. CARDIOVASCULAR: Regular rate and rhythm without murmurs, gallops, or rubs. RESPIRATORY: bilateral crackles, decreased breath sounds at the bases. GASTROINTESTINAL: Abdomen soft, non-tender, nondistended. MUSCULOSKELETAL: 3+ lower extremity edema BACK: Nontender without obvious deformity. No CVA tenderness. Laboratory Laboratory Tests Test 09/23/16 09/23/16 09/23/16 09/24/16 16:30 18:15 19:17 01:55 White Blood Count 4.7 Red Blood Count 3.51 Hemoglobin 11.1 Hematocrit 32.5 Mean Corpuscular Volume 92.6 Mean Corpuscular Hemoglobin 31.6 Mean Corpuscular Hemoglobin 34.1 Concent Red Cell Distribution Width 14.9 Platelet Count 135 Mean Platelet Volume 7.8 Neutrophils (%) (Auto) 61.2 Lymphocytes (%) (Auto) 19.2 Monocytes (%) (Auto) 16.7 Eosinophils (%) (Auto) 1.9 Basophils (%) (Auto) 1.0 Neutrophils # (Auto) 2.9 Lymphocytes # (Auto) 0.9 Monocytes # (Auto) 0.8 Eosinophils # (Auto) 0.1 Basophils # (Auto) 0.0 CBC Comment DIFF FINAL Differential Comment Prothrombin Time 117.5 Prothromb Time International 9.6 Ratio Activated Partial 79.7 Thromboplast Time Sodium Level 125 Potassium Level 5.1 Chloride Level 89 Carbon Dioxide Level 24.5 Anion Gap 12 Blood Urea Nitrogen 67 Creatinine 2.10 Estimat Glomerular Filtration 22 Rate Random Glucose 114 Calcium Level 9.2 Magnesium Level 2.1 Total Creatine Kinase 104 Creatine Kinase MB 4.3 Troponin I 0.02 0.02 0.02 B-Type Natriuretic Peptide 674 Urine Color YELLOW Urine Turbidity CLEAR Urine pH 5.5 Urine Specific [place] 1.008 Urine Protein NEG Urine Glucose (UA) NEG Urine Ketones NEG Urine Occult Blood NEG Urine Nitrite NEG Urine Bilirubin NEG Urine Leukocyte Esterase NEG Urine RBC 0-2 Urine WBC 0-2 Urine Squamous Epithelial 0-5 Cells Urine Bacteria NONE Microscopic Urinalysis Comment CULT NOT INDICATED Test 09/24/16 07:35 White Blood Count 5.1 Red Blood Count 3.39 Hemoglobin 10.6 Hematocrit 31.4 Mean Corpuscular Volume 92.6 Mean Corpuscular Hemoglobin 31.2 Mean Corpuscular Hemoglobin 33.7 Concent Red Cell Distribution Width 14.8 Platelet Count 130 Mean Platelet Volume 7.7 Neutrophils (%) (Auto) 64.3 Lymphocytes (%) (Auto) 17.2 Monocytes (%) (Auto) 16.3 Eosinophils (%) (Auto) 1.4 Basophils (%) (Auto) 0.8 Neutrophils # (Auto) 3.3 Lymphocytes # (Auto) 0.9 Monocytes # (Auto) 0.8 Eosinophils # (Auto) 0.1 Basophils # (Auto) 0.0 CBC Comment DIFF FINAL Differential Comment Prothrombin Time 63.2 Prothromb Time International 5.3 Ratio Sodium Level 127 Potassium Level 5.2 Chloride Level 92 Carbon Dioxide Level 23.1 Anion Gap 12 Blood Urea Nitrogen 72 Creatinine 2.00 Estimat Glomerular Filtration 23 Rate Random Glucose 78 Calcium Level 9.2 Result Diagram: 09/24/16 0735 09/24/16 0735 Assessment and Plan Problem List: (1) Acute kidney injury Plan: could be due to renal hypoperfusion resulting from low BP.Also possible is increased renal vein pressure ( due to CHF)causing reduction in GFR. Patient may have diastolic heart failure. At this time, clinically she appears to be hypervolemic. I will resume diuretic. Monitor renal function. Avoid nephrotoxic agents. Obtain bilateral renal US. UA is unremarkable. I agree with suspending CHARITY inhibitor at this time, especially in light of history of renal artery angioplasty. (2) Hyponatremia Plan: Appears to be chronic, in fact the patient never had completely normal serum Na. Etiology is unclear, clinically she is hypervolemic. Start loop diuretic, monitor. May need oral fluid restriction. Avoid salt tablets due to concerns of CHF. (3) Chronic atrial fibrillation Plan: She is coagulopathic. Coumadin held. Monitor INR. She has been given Vitamin K (4) Hypertension Plan: BP is low to low normal. Agree with holding Lisinopril. (5) Hyperkalemia Plan: Mild. Patient was on potassium supplements which should be held. Also, reduction in GFR caused reduced renal potassium excretion. Start loop diuretic, monitor. Assessment and Plan Thanks for the consult. Robert Gomes MD Sep 24, 2016 10:39
[2016-09-24 12:00] VITALS: BP_SYST 120; BP_SYST 123; BP_DIAS 64; BP_DIAS 83; PULSE 68; RESP 20; TEMP 96.7; O2SAT 91
--- NOTE | 2016-09-24 12:31 | MH ---
cc: ZEFERINO COY MD DATE OF ADMISSION: 09/23/2016 CHIEF COMPLAINT Generalized weakness HISTORY OF PRESENT ILLNESS This is an 89-year-old female with past medical-surgical history significant for hyperlipidemia, hypertension, skin cancer of the nose, renal artery angioplasty in the past, history of congestive heart failure, hypertension, pacemaker placement, history of atrial fibrillation, history of surgery of the carotid arteries bilaterally, right cataract surgery, renal artery angioplasty, hysterectomy, left lumpectomy, tonsillectomy. The patient came to the emergency room at [facility] complaining of decreased urination. She believed that she might be suffering from renal failure. She reported shortness of breath, however, not on exertion. There is no orthopnea. Dr. Horne, produce field merchandiser, who states the patient might be suffering from renal failure several days ago. She had relative oliguria over the last two weeks and gradually worsening. The patient has most likely systolic heart failure and acute renal failure. She has decreased urine output. The patient is not urinating as much as she was doing previously. She denies chest pain, palpitations. She has some shortness of breath with walking which she said is chronic. Denies any orthopnea. The patient is not a very good historian. Other than that, nothing significant. PAST MEDICAL HISTORY, PAST SURGICAL HISTORY: As dictated above. SOCIAL HISTORY: Denies smoking, drinking, taking any drugs. Lives at home alone, close to her daughter who helps her. FAMILY HISTORY: Significant for coronary artery disease. ALLERGIES: AMLODIPINE MEDICATIONS: 1. Lisinopril 20 milligrams twice a day. 2. Coumadin 2 milligrams p.o. daily 3. Coreg 12.5 milligrams twice a day. 4. Simbrinza ophthalmic drops right eye twice a day. 5. Lasix 40 milligrams twice a day. 6. Hydralazine 10 milligrams t.i.d. 7. Latanoprost one drop each eye every night. 8. Protonix 40 milligrams p.o. daily 9. Potassium chloride 10 milliequivalents p.o. b.i.d. REVIEW OF SYSTEMS The patient is not a very good historian and review of system is positive for generalized weakness and shortness of breath. PHYSICAL EXAMINATION This is a 89 year-old female laying in bed, in no acute distress. VITAL SIGNS: Temperature 96.6, heart rate 73, respiratory rate 20, blood pressure 101/57, O2 saturation 90% on room air. HEENT: Normocephalic, atraumatic. EOMI. PERRL. Oral mucosa dry. Neck: Supple. No visible thyromegaly or neck mass. Trachea central. CV: Regular rate and rhythm. Respirations: Clear to auscultation bilaterally. Decreased air entry bilaterally. Abdomen: Soft and nondistended. Bowel sounds audible. Extremities: No cyanosis or clubbing. Full range of motion of all extremities. Neuro: Awake and alert, moving all extremities. Speech is normal. Skin: Warm and dry. Psych: The patient is cooperative. LABORATORY DATA Include CBC showed WBC count is 5.1. Hemoglobin 10.6, low. Hematocrit 31.4 low. Platelet count 130 low. BMP totally unremarkable except for sodium was 125, now it is 127. Potassium was 5.1, now it is 5.2. Chloride 92 low, BUN 72 high, creatinine 2.0 high, GFR 23 low, BNP 674 high. Troponin-I x3, 0.02. PT was 117.5, INR was 9.6, now PT is 63.2, INR is 5.3. APTT 79.7. Urine examination is normal. IMAGING STUDIES: Chest x-ray done shows findings suggestive of bilateral pleural effusion and possible non-consolidative lower lung infiltrate, cardiomegaly stable. ASSESSMENT/PLAN This is an 89 year-old female who came to the ER diagnosed with acute renal failure with decreased urinary output, nephrology is seeing the patient. Further recommendation per nephrology. 1. Hyponatremia. Nephrology on the case. Further recommendations per nephrology. 2. Acute and chronic diastolic heart failure. 3. History of hypertension. Will monitor blood pressure. 4. History of hyperlipidemia. 5. History of peripheral arterial disease with history of bilateral carotid endarterectomy and renal artery angioplasty. 6. History of symptomatic bradycardia, status post pacemaker placement. 7. History of atrial fibrillation. The patient was on Coumadin. INR supratherapeutic, holding Coumadin. 8. Mild to moderate mitral regurgitation. Severe tricuspid regurgitation by echo in July 12, 2016. 9. Supratherapeutic INR, holding Coumadin. Monitor PT/INR daily. 10. Anemia. Will monitor H&H. 11. Hyperkalemia. Monitor potassium. 12. DVT prophylaxis. SCDs and GI prophylaxis, Protonix 40 mg p.o. daily. 13. History of glaucoma. Continue home medication. We are going to manage the patient on a daily basis and make recommendations on a daily basis. Zeferino Coy MD EA/PRISCILA /11:08 AM /12:07 PM
--- NOTE | 2016-09-24 14:05 | RADHPO ---
EXAM DATE/TIME: 09/24/2016 12:54 [place] COMPARISON: No previous studies available for comparison. INDICATIONS : Increase labs. MEDICAL HISTORY : Congestive heart failure. Hypercholesterolemia. Hypertension. Congenital heart failure. Renal disease . Renal failure. Arthritis. Skin cancer. SURGICAL HISTORY : Tonsillectomy. Hysterectomy. Right cataract surgery. Bilateral caratoid artery coronary stent place ment. Pacemaker. Renal artery angioplasty. Back surgery. ENCOUNTER: Initial ACUITY: 1 day PAIN SCORE: 3/10 LOCATION: Bilateral flank MEASUREMENTS: RIGHT KIDNEY: 9.1 x 5.3 x 3.9 cm LEFT KIDNEY: 8.2 x 4.3 x 4.2 cm FINDINGS: RIGHT KIDNEY: Renal cortex is normal in thickness and echotexture. No hydronephrosis, stone, or mass. Small amoun t of free fluid in the right upper quadrant. LEFT KIDNEY: 9 mm simple cyst upper pole left kidney. Left kidney otherwise within normal limits. No evidence of h ydronephrosis. BLADDER: Within normal limits given the degree of distension. CONCLUSION: Small amount of right upper quadrant ascites. 9 mm simple left renal cyst. Paloom Zambrano MD on September 24, 2016 at 14:02 Board Certified Radiologist. This report was verified electronically.
--- NOTE | 2016-09-24 14:51 | EKG ---
Date Performed: 09/23/2016 Time Performed: 16:51:36 PTAGE: 89 years EKG: Ventricular paced rhythm Since PREVIOUS TRACING 09/01/2016, no significant change. PREVIOUS TRACIN09/01/2016 14.23 DOCTOR: Golden Blount Interpretating Date/Time 09/24/2016 14:50:44
[2016-09-24 16:00] VITALS: BP 116/62; PULSE 71; RESP 20; TEMP 96.6; O2SAT 93
[2016-09-24] MEDS: FUROSEMIDE 40 MG/4 ML VIAL IV PUSH SCH (17:09)
[2016-09-24 20:00] VITALS: BP 125/70; PULSE 70; RESP 16; TEMP 96.1; O2SAT 91; O2SAT 93
[2016-09-25] VITALS: BP 108/62; PULSE 80; RESP 16; TEMP 97.1; O2SAT 96
[2016-09-25 04:00] VITALS: BP 111/63; PULSE 67; RESP 16; TEMP 96.1; O2SAT 96
[2016-09-25 06:02] LABS: POTASSIUM 4.6 MEQ/L (3.5-5.1)
[2016-09-25 06:05] LABS: BICARBONATE 25.8 MEQ/L (21.0-32.0)
[2016-09-25 06:19] LABS: INTERNATIONAL NORMALIZED RATIO 2.7 RATIO; PROTHROMBIN TIME - PATIENT 31.3 SEC (9.8-11.6)
--- NOTE | 2016-09-25 07:56 | HHI.PR ---
Subjective History of Present Illness Patient feel weak and tired no acute Issue. d/w RN Song. Review of Systems Constitutional Constitutional: Fatigue, Weakness Vitals/Results Intake & Output 09/24/16 09/24/16 09/25/16 15:00 23:00 07:00 Intake Total 330 ml 240 ml 680 ml Output Total 100 ml 250 ml 900 ml Balance 230 ml -10 ml -220 ml Intake Oral 330 ml 240 ml 680 ml Output Urine Total 100 ml 250 ml 900 ml # Bowel Movements 1 0 Vital Signs Vital Signs Date Time Temp Pulse Resp B/P Pulse Ox O2 Delivery O2 Flow Rate FiO2 09/25/16 04:00 96.1 67 16 111/63 96 09/25/16 00:00 97.1 80 16 108/62 96 09/24/16 20:00 96.1 70 16 125/70 91 09/24/16 20:00 93 21 09/24/16 20:00 70 09/24/16 16:00 96.6 71 20 116/62 93 09/24/16 12:00 96.7 68 20 120/64 91 09/24/16 08:00 93 21 09/24/16 08:00 96.6 73 20 101/57 90 CBC/BMP: 09/24/16 0735 09/25/16 0544 Lab Results Laboratory Tests Test 09/25/16 05:44 Prothrombin Time 31.3 SEC Prothromb Time International 2.7 RATIO Ratio Sodium Level 127 MEQ/L Potassium Level 4.6 MEQ/L Chloride Level 91 MEQ/L Carbon Dioxide Level 25.8 MEQ/L Anion Gap 10 MEQ/L Blood Urea Nitrogen 72 MG/DL Creatinine 2.00 MG/DL Estimat Glomerular Filtration 23 ML/MIN Rate Random Glucose 110 MG/DL Calcium Level 9.0 MG/DL Phosphorus Level 3.7 MG/DL Albumin 3.2 GM/DL Physical Exam General General Appearance: Well Developed, Well Nourished, No Acute Distress, Comfortable Eyes Eye Exam: Pupils Equal, Pupils Reactive, Sclera White, Extraocular Movement Intact Throat Throat Exam: Oral Mucosa [place] & Moist, Oral Pharynx Normal Neck Neck Exam: Neck Supple, Trachea Midline Pulmonary Resp Exam: Clear Bilaterally, Breath Sounds Equal, No Distress Cardiology CV Exam: Regular, Normal Sinus Rhythm Gastrointestinal/Abdomen GI Exam: Soft, Non-Tender, Bowel Sounds Present Musculoskeletal MS Exam: Normal Tone Integumentary Skin Exam: Clear, Warm, Dry, Intact Neurologic Neuro Exam: Awake, Oriented, Speech Clear, Moving All Extremities, No Focal Deficits Psychiatric Psych Exam: Appropriate Responses VTE Prophylaxis VTE Prophylaxis Device: SCDs PUD Prophylasis PUD Prophylaxis: Protonix Assessment/Plan Assessment/Plan ASSESSMENT/PLAN This is an 89 year-old female who came to the ER diagnosed with acute renal failure with decreased urinary output, nephrology is seeing the patient. Further recommendation per nephrology. 1. Hyponatremia. Nephrology on the case. Further recommendations per nephrology. 2. Acute and chronic diastolic heart failure. 3. History of hypertension. Will monitor blood pressure. 4. History of hyperlipidemia. 5. History of peripheral arterial disease with history of bilateral carotid endarterectomy and renal artery angioplasty. 6. History of symptomatic bradycardia, status post pacemaker placement. 7. History of atrial fibrillation. The patient was on Coumadin. INR therapeutic, holding Coumadin. 8. Mild to moderate mitral regurgitation. Severe tricuspid regurgitation by echo in July 12, 2016. 9. therapeutic INR, holding Coumadin. Monitor PT/INR daily. 10. Anemia. Will monitor H&H. 11. Hyperkalemia. resolved. 12. DVT prophylaxis. SCDs and GI prophylaxis, Protonix 40 mg p.o. daily. 13. History of glaucoma. Continue home medication. We are going to manage the patient on a daily basis and make recommendations on a daily basis. Discussed Condition with: Patient Zeferino Muniz MD Sep 25, 2016 07:56
[2016-09-25 08:00] VITALS: BP 124/60; PULSE 69; RESP 20; TEMP 97.4; O2SAT 93; O2SAT 94
[2016-09-25] MEDS: CARVEDILOL 12.5 MG TAB PO SCH ×2 (08:49→20:39)
[2016-09-25] MEDS: SODIUM CHLORIDE 0.9% FLUSH 10 ML FLUSH IV FLUSH SCH ×2 (08:50→20:40)
[2016-09-25] MEDS: DOCUSATE SODIUM 50 MG/SENNA 8.6 MG TAB PO SCH ×2 (08:50→20:39)
[2016-09-25] MEDS: FUROSEMIDE 40 MG/4 ML VIAL IV PUSH SCH ×2 (08:50→17:48)
--- NOTE | 2016-09-25 08:58 | HHI.NPPN ---
Subjective Complaints: Shortness of Breath General Problems: Anemia, Edema, Heart Disease, Hypertension, Obesity Renal Failure: Chronic, Acute Interval History Lying in bed, in no distress. States she feels about the same. Renal function is stable. (Ila Minor) Review of Systems Respiratory Lungs: SOB (Ila Minor) Cardiovascular Cardiac: Edema (Ila Minor) Objective Data Data 09/24/16 09/25/16 19:00 07:00 Intake Total 570 ml 680 ml Output Total 350 ml 900 ml Balance 220 ml -220 ml Intake Oral 570 ml 680 ml Output Urine Total 350 ml 900 ml # Bowel Movements 1 0 Vital Signs Date Time Temp Pulse Resp B/P Pulse Ox O2 Delivery O2 Flow Rate FiO2 09/25/16 08:00 97.4 69 20 124/60 94 09/25/16 04:00 96.1 67 16 111/63 96 09/25/16 00:00 97.1 80 16 108/62 96 09/24/16 20:00 96.1 70 16 125/70 91 09/24/16 20:00 93 21 09/24/16 20:00 70 09/24/16 16:00 96.6 71 20 116/62 93 09/24/16 12:00 96.7 68 20 120/64 91 (Ila Minor) -: 09/24/16 0735 09/25/16 0544 Imaging Last 72 hours Impressions Renal Ultrasound 09/24/16 0000 Signed Impressions: Service Date/Time: Saturday, September 24, 2016 12:54 - CONCLUSION: Small amount of right upper quadrant ascites. 9 mm simple left renal cyst. Palomo Zambrano MD Chest X-Ray 09/23/16 1620 Signed Impressions: Service Date/Time: Friday, September 23, 2016 16:23 - CONCLUSION: Findings suggest bilateral pleural effusions and possible non-consolidative lower lung infiltrates. Cardiomegaly is stable to prior. Reilly Matias MD (Ila Minor) Physical Exam General Appearance: Well Developed, Well Nourished, No Acute Distress, Comfortable ( Ila Minor) Throat Throat Exam: Oral Mucosa [place] & Moist (Ila Minor) Pulmonary Resp Exam: Breath Sounds Equal, No Distress, Crackles, Decreased Bases Resp Remarks bibasilar rales, decreased breath sounds in bases no wheezing (Ila Minor) Cardiology CV Exam: Good Perfusion, Irregular (Ila Minor) Gastrointestinal/Abdomen GI Exam: Soft, Non-Tender, Bowel Sounds Present GI Remarks obese (Ila Minor) Musculoskeletal MS Exam: Joints Intact, Normal Tone (Ila Minor) Integumentary Skin Exam: Clear, Warm, Dry, Intact (Ila Minor) Extremeties Extremities Exam: Pedal Pulses Palpable, Moderate Edema (Ila Minor) Neurologic Neuro Exam: Alert, Awake, Oriented, Speech Clear, Moving All Extremities ( Ila Minor) VTE Prophylaxis Meds: Coumadin (Ila Minor) Assessment/Plan Discussed Condition With: Patient Assessment Summary: HOLLIS/Acute Renal Failure, Fluid/Volume Overload, Hypertension, CKD Stage III Electrolyte Assessment: Hyperkalemia, Hyponatremia Problem List: (1) Acute kidney injury Plan: Baseline creatinine 1.1 HOLLIS thought to be due to relative hypotension vs. CHF exacerbation. renal function has been stable, potassium has improved renal US is normal aside from cyst; she is nonoliguric with benign UA appears hypervolemic, continue Lasix BID, monitor response and titrate dose to effect avoid IVF, nephrotoxic medications. CHARITY per home list is suspended Monitor renal function. Avoid nephrotoxic agents. (2) Hyponatremia Plan: Appears to be chronic, etiology is unclear, clinically she appears hypervolemic. sodium level is stable Continue loop diuretic and monitor sodium level begin oral fluid restriction. Avoid salt tablets due to concerns of CHF. (3) Chronic atrial fibrillation Plan: She was coagulopathic. Given Vitamin K INR now therapeutic cardiology following (4) Hypertension Plan: BP has normalized. CHARITY still held, continue coreg and Lasix. (5) Hyperkalemia Plan: Patient was on potassium supplements which should be held now corrected. Monitor for recurrence (Ila Minor) Plan patient was seen and examined. Agree with above assessment and plan. (Robert Gomes MD) Ila Minor Sep 25, 2016 08:58 Robert Gomes MD Sep 25, 2016 10:33
--- NOTE | 2016-09-25 10:03 | PD.CARD.PN ---
Subjective Subjective Remarks No problems over night No chest pain, no shortness of breath Objective Medications Current Medications Medications (Trade) Dose Ordered Sig/Debi Route Start Time Stop Time Status Last Admin (NS Flush) 2 ml UNSCH PRN IV FLUSH 09/23/16 19:00 (NS Flush) 2 ml BID IV FLUSH 09/23/16 21:00 09/25/16 08:50 (Tylenol) 650 mg Q4H PRN PO 09/23/16 19:00 (Zofran Inj) 4 mg Q6H PRN IVP 09/23/16 19:00 (Narcan Inj) 0.4 mg UNSCH PRN IV 09/23/16 19:00 (Saloni-Colace) 1 tab BID PO 09/23/16 21:00 09/25/16 08:50 (Milk Of Magnesia Liq) 30 ml Q12H PRN PO 09/23/16 19:00 (Senokot) 17.2 mg Q12H PRN PO 09/23/16 19:00 (Dulcolax Supp) 10 mg DAILY PRN RECTAL 09/23/16 19:00 (Lactulose Liq) 30 ml DAILY PRN PO 09/23/16 19:00 (Coreg) 12.5 mg BID PO 09/24/16 10:00 09/25/16 08:49 (Lasix Inj) 40 mg BID@,18 IV PUSH 09/24/16 18:00 09/25/16 08:50 Vital Signs / I&O Vital Signs Date Time Temp Pulse Resp B/P Pulse Ox O2 Delivery O2 Flow Rate FiO2 09/25/16 08:00 97.4 69 20 124/60 94 09/25/16 04:00 96.1 67 16 111/63 96 09/25/16 00:00 97.1 80 16 108/62 96 09/24/16 20:00 96.1 70 16 125/70 91 09/24/16 20:00 93 21 09/24/16 20:00 70 09/24/16 16:00 96.6 71 20 116/62 93 09/24/16 12:00 96.7 68 20 120/64 91 I/O 09/24/16 09/24/16 09/24/16 09/25/16 09/25/16 09/25/16 07:00 15:00 23:00 07:00 15:00 23:00 Intake Total 330 ml 240 ml 680 ml Output Total 100 ml 250 ml 900 ml Balance 230 ml -10 ml -220 ml Intake Oral 330 ml 240 ml 680 ml Output Urine Total 100 ml 250 ml 900 ml # Voids 1 # Bowel Movements 1 0 Physical Exam GENERAL: NAD, AAOx3 SKIN: Warm and dry. HEAD: Atraumatic. Normocephalic. EYES: Pupils equal and round. No scleral icterus. No injection or drainage. ENT: No nasal bleeding or discharge. Mucous membranes pink and moist. NECK: Trachea midline. Minimal JVD CARDIOVASCULAR: Regular rate and rhythm. RESPIRATORY: Decreased breath sounds bilaterally, minimal rales GASTROINTESTINAL: Abdomen soft, non-tender, nondistended. Hepatic and splenic margins not palpable. MUSCULOSKELETAL: 1+ pitting edema bilaterally NEUROLOGICAL: Awake and alert. No obvious cranial nerve deficits. Motor grossly within normal limits. Five out of 5 muscle strength in the arms and legs. Normal speech. PSYCHIATRIC: Appropriate mood and affect; insight and judgment normal. Laboratory Laboratory Tests Test 09/25/16 05:44 Prothrombin Time 31.3 SEC Prothromb Time International 2.7 RATIO Ratio Sodium Level 127 MEQ/L Potassium Level 4.6 MEQ/L Chloride Level 91 MEQ/L Carbon Dioxide Level 25.8 MEQ/L Anion Gap 10 MEQ/L Blood Urea Nitrogen 72 MG/DL Creatinine 2.00 MG/DL Estimat Glomerular Filtration 23 ML/MIN Rate Random Glucose 110 MG/DL Calcium Level 9.0 MG/DL Phosphorus Level 3.7 MG/DL Albumin 3.2 GM/DL Assessment and Plan Problem List: (1) Acute kidney injury (2) CHF (congestive heart failure) (3) Hyperkalemia (4) Chronic atrial fibrillation (5) Status post placement of cardiac pacemaker (6) Bilateral pleural effusion (7) Elevated INR (8) Exertional dyspnea Assessment and Plan 1) Agree with continuing to diurese Weight/IOs daily 2) Avoid CHARITY-I 3) Blood pressure controlled, avoid hypotension 4) INR back towards normal range, would not start Coumadin yet, wait until INR tomorrow then can start Possibly due to hepatic congestion from fluid overload state 5) Chronic hyponatremia, unknown cause Problem Qualifiers (1) CHF (congestive heart failure): Qualified Code: I50.9 - Congestive heart failure, unspecified congestive heart failure chronicity, unspecified congestive heart failure type Fredis Ortega DO Sep 25, 2016 10:03
--- NOTE | 2016-09-25 12:29 | RADHPO ---
EXAM DATE/TIME: 09/25/2016 11:37 [facility] COMPARISON: US KIDNEY/RENAL/BLADDER, September 24, 2016, 12:54. INDICATIONS : Bilateral leg swelling. MEDICAL HISTORY : Hypertension. SURGICAL HISTORY : Tonsillectomy.Hysterectomy. ENCOUNTER: Initial ACUITY: 2 day PAIN SCORE: 3/10 LOCATION: Bilateral legs. TECHNIQUE: Venous ultrasound of the left and right leg was performed from the inguinal ligament to the proximal calf. Real-time, color Doppler and spectral tracing, compression and augmentation techniques were us ed. FINDINGS: RIGHT LEG: There is normal compressibility of the deep venous system from the inguinal region to the proximal ca lf. No echogenic clot is seen in the lumen of the common femoral, femoral, popliteal, and posterior tibial veins. There is a normal response of the venous system to proximal and distal augmentation an d respiration. LEFT LEG: There is normal compressibility of the deep venous system from the inguinal region to the proximal ca lf. No echogenic clot is seen in the lumen of the common femoral, femoral, popliteal, and posterior tibial veins. There is a normal response of the venous system to proximal and distal augmentation an d respiration. CONCLUSION: 1. No DVT identified. Alexander Cabezas MD on September 25, 2016 at 12:27 Board Certified Radiologist. This report was verified electronically.
[2016-09-25 16:00] VITALS: BP 121/71; PULSE 80; RESP 17; TEMP 97.7; O2SAT 94
[2016-09-25 20:00] VITALS: BP 100/58; PULSE 80; RESP 16; TEMP 96.4; O2SAT 95
[2016-09-25 20:38] VITALS: O2SAT 95
[2016-09-26] VITALS (8 sets, daily range): BP systolic 95–121; BP diastolic 56–72; PULSE 71–79; RESP 16–20; TEMP 96–97.8; O2SAT 92–95
--- NOTE | 2016-09-26 06:21 | PD.CARD.PN ---
Subjective Subjective Remarks Chart reviewed. The patient has minimal dyspnea but no other cardiac symptoms. She states she did have some diarrhea yesterday. Telemetry reveals atrial fibrillation with ventricular demand pacemaker. Objective Medications Reviewed Vital Signs / I&O Vital Signs Date Time Temp Pulse Resp B/P Pulse Ox O2 Delivery O2 Flow Rate FiO2 09/26/16 00:00 96.2 76 18 98/56 92 09/25/16 20:38 95 21 09/25/16 20:00 96.4 80 16 100/58 95 09/25/16 16:00 97.7 80 17 121/71 94 09/25/16 08:00 93 21 09/25/16 08:00 97.4 69 20 124/60 94 I/O 09/25/16 09/25/16 09/25/16 09/26/16 09/26/16 09/26/16 06:59 14:59 22:59 06:59 14:59 22:59 Intake Total 680 ml 670 ml 450 ml 120 ml Output Total 900 ml 950 ml Balance -220 ml 670 ml -500 ml 120 ml Intake Oral 680 ml 670 ml 450 ml 120 ml Output Urine Total 900 ml 950 ml # Voids 4 5 2 # Bowel Movements 0 2 4 Physical Exam GENERAL: Well-nourished, well-developed patient in no apparent distress. SKIN: Warm and dry. NECK: JVD normal - less than or equal to 5 cm H20. CARDIOVASCULAR: Regular rate and rhythm without murmurs, gallops, or rubs. RESPIRATORY: Normal breath sounds - equal bilaterally. No accessory muscle use. No wheezes, rales or rubs. PERIPHERY: No cyanosis.Trace edema. Laboratory Laboratory Tests Test 09/25/16 10:40 Urine Osmolality 357 MOSM/KG Imaging Last 48 hours Impressions Lower Extremity Ultrasound 09/25/16 0000 Signed Impressions: Service Date/Time: Sunday, September 25, 2016 11:37 - CONCLUSION: 1. No DVT identified. Alexander Cabezas MD Assessment and Plan Problem List: (1) Acute kidney injury (2) CHF (congestive heart failure) (3) Hyperkalemia (4) Chronic atrial fibrillation (5) Status post placement of cardiac pacemaker (6) Bilateral pleural effusion (7) Elevated INR (8) Exertional dyspnea Assessment and Plan Problems: Diastolic congestive heart failure Acute on chronic kidney disease Hypertension Atrial fibrillation with ventricular demand pacemaker Recommendations: Switch to oral diuretic and continue other cardiac medication. The patient appears euvolemic at this point in time. Ideally would want her back on anticoagulation but I would leave it to the primary service to decide given her anemia. We will sign off and be available. She will need to follow-up with her PCP and Dr. Horne. All questions were answered. Problem Qualifiers (1) CHF (congestive heart failure): Qualified Code: I50.9 - Congestive heart failure, unspecified congestive heart failure chronicity, unspecified congestive heart failure type Taiwo Eastman MD Sep 26, 2016 06:21
[2016-09-26 06:24] LABS: AUTOMATED NEUTROPHIL # 3.2 TH/MM3 (1.8-7.7); BASOPHIL % 0.5 % (0.0-2.0); EOSINOPHIL # 0.1 TH/MM3 (0-0.4); EOSINOPHIL % 2.2 % (0.0-4.0); HEMO FLAGS DIFF FINAL; LYMPH % 19.9 % (9.0-44.0); MEAN CELL VOLUME 93.4 FL (80.0-100.0); MEAN CORPUSCULAR HEMOGLOBIN 31.2 PG (27.0-34.0); MEAN CORPUSCULAR HGB CONC 33.4 % (32.0-36.0); MONO % 17.9 % (0.0-8.0); NEUT % 59.5 % (16.0-70.0); PLATELET COUNT 116 TH/MM3 (150-450); RED BLOOD COUNT 3.32 MIL/MM3 (4.00-5.30); RED CELL DISTRIBUTION WIDTH 15.2 % (11.6-17.2); WHITE BLOOD COUNT 5.2 TH/MM3 (4.0-11.0)
[2016-09-26 06:33] LABS: INTERNATIONAL NORMALIZED RATIO 2.1 RATIO; PROTHROMBIN TIME - PATIENT 23.9 SEC (9.8-11.6)
[2016-09-26 06:34] LABS: CHLORIDE 91 MEQ/L (98-107); POTASSIUM 4.6 MEQ/L (3.5-5.1); SODIUM (NA) 127 MEQ/L (136-145)
[2016-09-26 06:38] LABS: ANION GAP 12 MEQ/L (5-15); BICARBONATE 24.5 MEQ/L (21.0-32.0); BLOOD UREA NITROGEN 71 MG/DL (7-18)
[2016-09-26 06:41] LABS: ALT (GPT) 21 U/L (10-53); AST (GOT) 32 U/L (15-37); GLOMERULAR FILTRATION RATE 26 ML/MIN (>89)
[2016-09-26 06:42] LABS: TOTAL BILIRUBIN ADULT 1.5 MG/DL (0.2-1.0)
[2016-09-26 06:44] LABS: ALKALINE PHOSPHATASE 118 U/L (45-117)
--- NOTE | 2016-09-26 07:53 | HHI.PR ---
Subjective History of Present Illness Patient feel weak and tired no acute Issue. still have low sodium renal function improving restart coumadin INR 2.1 Today. Review of Systems Constitutional Constitutional: Fatigue, Weakness Vitals/Results Intake & Output 09/25/16 09/25/16 09/26/16 15:00 23:00 07:00 Intake Total 670 ml 450 ml 120 ml Output Total 950 ml Balance 670 ml -500 ml 120 ml Intake Oral 670 ml 450 ml 120 ml Output Urine Total 950 ml # Voids 4 5 2 # Bowel Movements 2 4 Vital Signs Vital Signs Date Time Temp Pulse Resp B/P Pulse Ox O2 Delivery O2 Flow Rate FiO2 09/26/16 04:00 96.8 71 16 95/56 92 09/26/16 00:00 96.2 76 18 98/56 92 09/25/16 20:38 95 21 09/25/16 20:00 96.4 80 16 100/58 95 09/25/16 16:00 97.7 80 17 121/71 94 09/25/16 08:00 93 21 09/25/16 08:00 97.4 69 20 124/60 94 CBC/BMP: 09/26/16 0533 09/26/16 0533 Lab Results Laboratory Tests Test 09/25/16 09/26/16 10:40 05:33 Urine Osmolality 357 MOSM/KG White Blood Count 5.2 TH/MM3 Red Blood Count 3.32 MIL/MM3 Hemoglobin 10.4 GM/DL Hematocrit 31.0 % Mean Corpuscular Volume 93.4 FL Mean Corpuscular Hemoglobin 31.2 PG Mean Corpuscular Hemoglobin 33.4 % Concent Red Cell Distribution Width 15.2 % Platelet Count 116 TH/MM3 Mean Platelet Volume 7.8 FL Neutrophils (%) (Auto) 59.5 % Lymphocytes (%) (Auto) 19.9 % Monocytes (%) (Auto) 17.9 % Eosinophils (%) (Auto) 2.2 % Basophils (%) (Auto) 0.5 % Neutrophils # (Auto) 3.2 TH/MM3 Lymphocytes # (Auto) 1.0 TH/MM3 Monocytes # (Auto) 0.9 TH/MM3 Eosinophils # (Auto) 0.1 TH/MM3 Basophils # (Auto) 0.0 TH/MM3 CBC Comment DIFF FINAL Differential Comment Prothrombin Time 23.9 SEC Prothromb Time International 2.1 RATIO Ratio Sodium Level 127 MEQ/L Potassium Level 4.6 MEQ/L Chloride Level 91 MEQ/L Carbon Dioxide Level 24.5 MEQ/L Anion Gap 12 MEQ/L Blood Urea Nitrogen 71 MG/DL Creatinine 1.80 MG/DL Estimat Glomerular Filtration 26 ML/MIN Rate Random Glucose 83 MG/DL Calcium Level 8.8 MG/DL Total Bilirubin 1.5 MG/DL Aspartate Amino Transf 32 U/L (AST/SGOT) Alanine Aminotransferase 21 U/L (ALT/SGPT) Alkaline Phosphatase 118 U/L Total Protein 6.4 GM/DL Albumin 3.1 GM/DL Physical Exam General General Appearance: Well Developed, Well Nourished, No Acute Distress, Comfortable Eyes Eye Exam: Pupils Equal, Pupils Reactive, Sclera White, Extraocular Movement Intact Throat Throat Exam: Oral Mucosa [place] & Moist, Oral Pharynx Normal Neck Neck Exam: Neck Supple, Trachea Midline Pulmonary Resp Exam: Clear Bilaterally, Breath Sounds Equal, No Distress Cardiology CV Exam: Regular, Normal Sinus Rhythm Gastrointestinal/Abdomen GI Exam: Soft, Non-Tender, Bowel Sounds Present Musculoskeletal MS Exam: Normal Tone Integumentary Skin Exam: Clear, Warm, Dry, Intact Extremeties Extremities Exam: Pedal Pulses Palpable, Moderate Edema Neurologic Neuro Exam: Awake, Oriented, Speech Clear, Moving All Extremities, No Focal Deficits Psychiatric Psych Exam: Appropriate Responses VTE Prophylaxis VTE Prophylaxis Device: SCDs VTE Prophylaxis Meds: Coumadin PUD Prophylasis PUD Prophylaxis: Protonix Assessment/Plan Assessment/Plan ASSESSMENT/PLAN This is an 89 year-old female who came to the ER diagnosed with acute renal failure with decreased urinary output, nephrology is seeing the patient. Further recommendation per nephrology. 1. Hyponatremia. Nephrology on the case. Further recommendations per nephrology...better 2. Acute and chronic diastolic heart failure. 3. History of hypertension. Will monitor blood pressure. 4. History of hyperlipidemia. 5. History of peripheral arterial disease with history of bilateral carotid endarterectomy and renal artery angioplasty. 6. History of symptomatic bradycardia, status post pacemaker placement. 7. History of atrial fibrillation. The patient was on Coumadin. INR therapeutic, 2.1 restarted Coumadin today. 8. Mild to moderate mitral regurgitation. Severe tricuspid regurgitation by echo in July 12, 2016. 9. Anemia. Will monitor H&H. 10. Hyperkalemia. resolved. 11. DVT prophylaxis. coumadin 12. GI prophylaxis, Protonix 40 mg p.o. daily. 13. History of glaucoma. Continue home medication. We are going to manage the patient on a daily basis and make recommendations on a daily basis. Discussed Condition with: Patient Zeferino Muniz MD Sep 26, 2016 07:53
--- NOTE | 2016-09-26 08:38 | HHI.NPPN ---
Subjective Complaints: Shortness of Breath General Problems: Anemia, Edema, Heart Disease, Hypertension, Obesity Renal Failure: Chronic, Acute Interval History Ambulating in room. Still with lower extremity edema. Renal function has improved. (Ila Minor) Review of Systems Respiratory Lungs: SOB (Ila Minor) Cardiovascular Cardiac: Edema (Ila Minor) Objective Data Data 09/25/16 09/26/16 19:00 07:00 Intake Total 880 ml 360 ml Output Total 750 ml 200 ml Balance 130 ml 160 ml Intake Oral 880 ml 360 ml Output Urine Total 750 ml 200 ml # Voids 8 3 # Bowel Movements 6 Vital Signs Date Time Temp Pulse Resp B/P Pulse Ox O2 Delivery O2 Flow Rate FiO2 09/26/16 04:00 96.8 71 16 95/56 92 09/26/16 00:00 96.2 76 18 98/56 92 09/25/16 20:38 95 21 09/25/16 20:00 96.4 80 16 100/58 95 09/25/16 16:00 97.7 80 17 121/71 94 (Ila Minor) -: 09/26/16 0533 09/26/16 0533 Imaging Last 72 hours Impressions Lower Extremity Ultrasound 09/25/16 0000 Signed Impressions: Service Date/Time: Sunday, September 25, 2016 11:37 - CONCLUSION: 1. No DVT identified. Alexander Cabezas MD Renal Ultrasound 09/24/16 0000 Signed Impressions: Service Date/Time: Saturday, September 24, 2016 12:54 - CONCLUSION: Small amount of right upper quadrant ascites. 9 mm simple left renal cyst. Palomo Zambrano MD Chest X-Ray 09/23/16 1620 Signed Impressions: Service Date/Time: Friday, September 23, 2016 16:23 - CONCLUSION: Findings suggest bilateral pleural effusions and possible non-consolidative lower lung infiltrates. Cardiomegaly is stable to prior. Reilly Matias MD (Ila Minor) Physical Exam General Appearance: Well Developed, Well Nourished, No Acute Distress, Comfortable ( Ila Minor) Eyes Eye Exam: Pupils Equal, Pupils Reactive, Sclera White, Extraocular Movement Intact (Ila Minor. EXTRUDING PRESS OPERATOR) Throat Throat Exam: Oral Mucosa [place] & Moist, Oral Pharynx Normal (Ila Minor EXTRUDING PRESS OPERATOR) Neck Neck Exam: Neck Supple, Trachea Midline (Ila Minor EXTRUDING PRESS OPERATOR) Pulmonary Resp Exam: Clear Bilaterally, Breath Sounds Equal, No Distress Resp Remarks bibasilar rales, decreased breath sounds in bases no wheezing (Ila Minor EXTRUDING PRESS OPERATOR) Cardiology CV Exam: Regular, Normal Sinus Rhythm (Ila Minor EXTRUDING PRESS OPERATOR) Gastrointestinal/Abdomen GI Exam: Soft, Non-Tender, Bowel Sounds Present GI Remarks obese (Ila Minor EXTRUDING PRESS OPERATOR) Musculoskeletal MS Exam: Normal Tone (Ila Minor EXTRUDING PRESS OPERATOR) Integumentary Skin Exam: Clear, Warm, Dry, Intact (Ila Minor) Extremeties Extremities Exam: Pedal Pulses Palpable, Moderate Edema, Pitting Edema ( Ila Minor) Neurologic Neuro Exam: Awake, Oriented, Speech Clear, Moving All Extremities, No Focal Deficits (Ila Minor EXTRUDING PRESS OPERATOR) Psychiatric Psych Exam: Appropriate Responses (Ila Minor) VTE Prophylaxis Device: SCDs (Ila Minor) PUD Prophylasis PUD Prophylaxis: Protonix (Ila Minor. EXTRUDING PRESS OPERATOR) Assessment/Plan Discussed Condition With: Patient Assessment Summary: HOLLIS/Acute Renal Failure, Fluid/Volume Overload, Hypertension, CKD Stage III Electrolyte Assessment: Hyperkalemia, Hyponatremia Problem List: (1) Acute kidney injury Plan: Baseline creatinine 1.1 HOLLIS thought to be due to relative hypotension vs. CHF exacerbation. renal function has improved non oliguric, continue lasix BID as still appears hypervolemic avoid IVF, nephrotoxic medications. CHARITY per home list is suspended Monitor renal function. Avoid nephrotoxic agents. (2) Hyponatremia Plan: Appears to be chronic, etiology is unclear, clinically she appears hypervolemic. sodium level is unchanged Continue loop diuretic with fluid restriction Avoid salt tablets due to concerns of CHF. (3) Chronic atrial fibrillation Plan: She was coagulopathic. INR now therapeutic resume Coumadin cardiology has signed off (4) Hypertension Plan: BP is borderline low CHARITY still held, continue coreg and Lasix with hold parameters (5) Hyperkalemia Plan: off supplements, now corrected. Monitor for recurrence (Ila Minor) Plan patient was seen and examined. Renal function is stable. Continue Lasix. We will give her a dose of Tolvaptan for correcting hyponatremia. half-way, she needs fluid restriction. She can be discharged tomorrow if she remains stable. (Robert Gomes MD) Ila Minor Sep 26, 2016 08:38 Robert Gomes MD Sep 26, 2016 14:54
[2016-09-26] MEDS: CARVEDILOL 12.5 MG TAB PO SCH ×3 (09:00→21:24)
[2016-09-26] MEDS: FUROSEMIDE 40 MG TAB PO SCH ×2 (09:51→17:47)
[2016-09-26] MEDS: DOCUSATE SODIUM 50 MG/SENNA 8.6 MG TAB PO SCH ×2 (09:51→21:24)
[2016-09-26] MEDS: SODIUM CHLORIDE 0.9% FLUSH 10 ML FLUSH IV FLUSH SCH ×2 (09:52→21:24)
[2016-09-26] MEDS ORDERED: TOLVAPTAN 15 MG TAB PO ONE ×2 (12:00→18:30)
[2016-09-26] MEDS ORDERED: WARFARIN SOD 2 MG TAB PO SCH (16:15)
[2016-09-27] VITALS: BP 98/58; PULSE 79; RESP 20; TEMP 96; O2SAT 92
[2016-09-27 04:00] VITALS: BP 107/58; PULSE 79; RESP 20; TEMP 96.6; O2SAT 91
[2016-09-27 06:27] LABS: AUTOMATED NEUTROPHIL # 2.8 TH/MM3 (1.8-7.7); BASOPHIL % 0.6 % (0.0-2.0); EOSINOPHIL # 0.1 TH/MM3 (0-0.4); EOSINOPHIL % 2.3 % (0.0-4.0); HEMATOCRIT 31.4 % (35.0-46.0); HEMO FLAGS DIFF FINAL; LYMPH % 22.3 % (9.0-44.0); LYMPHOCYTE # 1.1 TH/MM3 (1.0-4.8); MEAN CELL VOLUME 93.1 FL (80.0-100.0); MEAN CORPUSCULAR HEMOGLOBIN 30.8 PG (27.0-34.0); MEAN CORPUSCULAR HGB CONC 33.1 % (32.0-36.0); MONO % 15.8 % (0.0-8.0); PLATELET COUNT 141 TH/MM3 (150-450); RED BLOOD COUNT 3.37 MIL/MM3 (4.00-5.30); RED CELL DISTRIBUTION WIDTH 14.9 % (11.6-17.2); WHITE BLOOD COUNT 4.8 TH/MM3 (4.0-11.0)
[2016-09-27 06:42] LABS: CHLORIDE 94 MEQ/L (98-107); POTASSIUM 4.4 MEQ/L (3.5-5.1); SODIUM (NA) 129 MEQ/L (136-145)
[2016-09-27 06:47] LABS: ANION GAP 9 MEQ/L (5-15); BICARBONATE 25.9 MEQ/L (21.0-32.0); BLOOD UREA NITROGEN 65 MG/DL (7-18)
[2016-09-27 06:50] LABS: ALT (GPT) 23 U/L (10-53); AST (GOT) 33 U/L (15-37); GLOMERULAR FILTRATION RATE 33 ML/MIN (>89)
[2016-09-27 06:51] LABS: TOTAL BILIRUBIN ADULT 1.6 MG/DL (0.2-1.0)
[2016-09-27 06:53] LABS: ALKALINE PHOSPHATASE 115 U/L (45-117); INTERNATIONAL NORMALIZED RATIO 2.1 RATIO; PROTHROMBIN TIME - PATIENT 23.9 SEC (9.8-11.6)
[2016-09-27 08:00] VITALS: BP 114/60; PULSE 71; RESP 18; TEMP 96; O2SAT 92
[2016-09-27 08:10] VITALS: PULSE 79; PULSE 83
--- NOTE | 2016-09-27 08:21 | HHI.NPPN ---
Subjective Complaints: Shortness of Breath General Problems: Anemia, Edema, Heart Disease, Hypertension, Obesity Renal Failure: Chronic, Acute Interval History She looks well, no acute complaints. Renal function and sodium have improved. ( Ila Minor) Review of Systems Respiratory Lungs: SOB (Ila Minor) Cardiovascular Cardiac: Edema (Ila Minor) Objective Data Data 09/26/16 09/27/16 19:00 07:00 Intake Total 950 ml 240 ml Balance 950 ml 240 ml Intake Oral 950 ml 240 ml # Voids 4 3 # Bowel Movements 4 0 Vital Signs Date Time Temp Pulse Resp B/P Pulse Ox O2 Delivery O2 Flow Rate FiO2 09/27/16 04:00 96.6 79 20 107/58 91 09/27/16 00:00 96.0 79 20 98/58 92 09/26/16 20:00 76 09/26/16 20:00 96.0 77 20 120/70 95 09/26/16 16:00 97.1 73 18 120/72 94 09/26/16 12:00 97.8 71 18 121/71 95 09/26/16 10:03 76 103/64 09/26/16 08:20 93 21 (Ila Minor) -: 09/27/16 0605 09/27/16 0605 Physical Exam General Appearance: Well Developed, Well Nourished, No Acute Distress, Comfortable ( Ila Minor) Eyes Eye Exam: Pupils Equal, Pupils Reactive, Sclera White, Extraocular Movement Intact (Ila Minor) Throat Throat Exam: Oral Mucosa [place] & Moist, Oral Pharynx Normal (Ila Minor) Neck Neck Exam: Neck Supple, Trachea Midline (Ila Minor) Pulmonary Resp Exam: Clear Bilaterally, Breath Sounds Equal, No Distress Resp Remarks bibasilar rales, decreased breath sounds in bases no wheezing (Ila Minor) Cardiology CV Exam: Regular, Normal Sinus Rhythm (Ila Minor) Gastrointestinal/Abdomen GI Exam: Soft, Non-Tender, Bowel Sounds Present GI Remarks obese (Ila Minor) Musculoskeletal MS Exam: Normal Tone (Ila Minor) Integumentary Skin Exam: Clear, Warm, Dry, Intact (Ila Minor) Extremeties Extremities Exam: Pedal Pulses Palpable, Moderate Edema, Pitting Edema ( Ila Minor) Neurologic Neuro Exam: Awake, Oriented, Speech Clear, Moving All Extremities, No Focal Deficits (Ila Minor) Psychiatric Psych Exam: Appropriate Responses (Ila Minor) VTE Prophylaxis Device: SCDs (Ila Minor) PUD Prophylasis PUD Prophylaxis: Protonix (Ila Minor) Assessment/Plan Discussed Condition With: Patient Assessment Summary: HOLLIS/Acute Renal Failure, Fluid/Volume Overload, Hypertension, CKD Stage III Electrolyte Assessment: Hyponatremia Problem List: (1) Acute kidney injury Plan: Baseline creatinine 1.1 HOLLIS thought to be due to relative hypotension vs. CHF exacerbation. renal function improved non oliguric, continue lasix BID after discharge avoid IVF, nephrotoxic medications. resume CHARITY in 1-2 days Monitor renal function. Avoid nephrotoxic agents. advised to elevate lower extremities, use MANI hose (2) Hyponatremia Plan: Appears to be chronic, SIADH sodium level improved she was given one dose of Tolvaptan Continue Lasix discussed fluid restriction for discharge purposes Avoid salt tablets due to concerns of CHF. (3) Chronic atrial fibrillation Plan: She was coagulopathic. INR now therapeutic resume Coumadin cardiology has signed off, to follow after discharge (4) Hypertension Plan: BP stable, borderline low continue coreg and Lasix with hold parameters resume low dose CHARITY 1-2 days after discharge (5) Hyperkalemia Plan: off supplements, now corrected. Monitor for recurrence Plan she is stable for discharge from renal perspective (Ila Minor) Plan patient was seen and examined. Agree with above assessment and plan. (Robert Gomes MD) Ila Minor Sep 27, 2016 08:21 Robert Gomes MD Sep 27, 2016 20:59
--- NOTE | 2016-09-27 08:49 | HHI.PR ---
Subjective History of Present Illness Patient feel better walking with walker no acute Issue. still have low sodium but better renal function improving restart coumadin INR 2.1 Today. ok to DC Home today. Review of Systems Constitutional Constitutional: Fatigue, Weakness Vitals/Results Intake & Output 09/26/16 09/26/16 09/27/16 15:00 23:00 07:00 Intake Total 950 ml 240 ml Balance 950 ml 240 ml Intake Oral 950 ml 240 ml # Voids 4 3 # Bowel Movements 4 0 Vital Signs Vital Signs Date Time Temp Pulse Resp B/P Pulse Ox O2 Delivery O2 Flow Rate FiO2 09/27/16 04:00 96.6 79 20 107/58 91 09/27/16 00:00 96.0 79 20 98/58 92 09/26/16 20:00 76 09/26/16 20:00 96.0 77 20 120/70 95 09/26/16 16:00 97.1 73 18 120/72 94 09/26/16 12:00 97.8 71 18 121/71 95 09/26/16 10:03 76 103/64 CBC/BMP: 09/27/16 0605 09/27/16 0605 Lab Results Laboratory Tests Test 09/27/16 06:05 White Blood Count 4.8 TH/MM3 Red Blood Count 3.37 MIL/MM3 Hemoglobin 10.4 GM/DL Hematocrit 31.4 % Mean Corpuscular Volume 93.1 FL Mean Corpuscular Hemoglobin 30.8 PG Mean Corpuscular Hemoglobin 33.1 % Concent Red Cell Distribution Width 14.9 % Platelet Count 141 TH/MM3 Mean Platelet Volume 7.4 FL Neutrophils (%) (Auto) 59.0 % Lymphocytes (%) (Auto) 22.3 % Monocytes (%) (Auto) 15.8 % Eosinophils (%) (Auto) 2.3 % Basophils (%) (Auto) 0.6 % Neutrophils # (Auto) 2.8 TH/MM3 Lymphocytes # (Auto) 1.1 TH/MM3 Monocytes # (Auto) 0.8 TH/MM3 Eosinophils # (Auto) 0.1 TH/MM3 Basophils # (Auto) 0.0 TH/MM3 CBC Comment DIFF FINAL Differential Comment Prothrombin Time 23.9 SEC Prothromb Time International 2.1 RATIO Ratio Sodium Level 129 MEQ/L Potassium Level 4.4 MEQ/L Chloride Level 94 MEQ/L Carbon Dioxide Level 25.9 MEQ/L Anion Gap 9 MEQ/L Blood Urea Nitrogen 65 MG/DL Creatinine 1.50 MG/DL Estimat Glomerular Filtration 33 ML/MIN Rate Random Glucose 81 MG/DL Calcium Level 8.9 MG/DL Total Bilirubin 1.6 MG/DL Aspartate Amino Transf 33 U/L (AST/SGOT) Alanine Aminotransferase 23 U/L (ALT/SGPT) Alkaline Phosphatase 115 U/L Total Protein 6.4 GM/DL Albumin 3.1 GM/DL Physical Exam General General Appearance: Well Developed, Well Nourished, No Acute Distress, Comfortable Eyes Eye Exam: Pupils Equal, Pupils Reactive, Sclera White, Extraocular Movement Intact Throat Throat Exam: Oral Mucosa [place] & Moist, Oral Pharynx Normal Neck Neck Exam: Neck Supple, Trachea Midline Pulmonary Resp Exam: Clear Bilaterally, Breath Sounds Equal, No Distress Cardiology CV Exam: Regular, Normal Sinus Rhythm Gastrointestinal/Abdomen GI Exam: Soft, Non-Tender, Bowel Sounds Present Musculoskeletal MS Exam: Normal Tone Integumentary Skin Exam: Clear, Warm, Dry, Intact Extremeties Extremities Exam: Pedal Pulses Palpable, Moderate Edema, Pitting Edema Neurologic Neuro Exam: Awake, Oriented, Speech Clear, Moving All Extremities, No Focal Deficits Psychiatric Psych Exam: Appropriate Responses VTE Prophylaxis VTE Prophylaxis Device: SCDs VTE Prophylaxis Meds: Coumadin PUD Prophylasis PUD Prophylaxis: Protonix Assessment/Plan Assessment/Plan ASSESSMENT/PLAN This is an 89 year-old female who came to the ER diagnosed with acute renal failure with decreased urinary output, nephrology is seeing the patient. Further recommendation per nephrology. 1. Hyponatremia. Nephrology on the case. Further recommendations per nephrology...better 2. Acute and chronic diastolic heart failure. 3. History of hypertension. Will monitor blood pressure. 4. History of hyperlipidemia. 5. History of peripheral arterial disease with history of bilateral carotid endarterectomy and renal artery angioplasty. 6. History of symptomatic bradycardia, status post pacemaker placement. 7. History of atrial fibrillation. The patient was on Coumadin. INR therapeutic, 2.1 restarted Coumadin today. 8. Mild to moderate mitral regurgitation. Severe tricuspid regurgitation by echo in July 12, 2016. 9. Anemia. Will monitor H&H. 10. Hyperkalemia. resolved. 11. DVT prophylaxis. coumadin 12. GI prophylaxis, Protonix 40 mg p.o. daily. 13. History of glaucoma. Continue home medication. ok to DC Home today. f/u with PCP / Cardiology/ Nephrology 1 week. Discussed Condition with: Patient Zeferino Muniz MD Sep 27, 2016 08:49
[2016-09-27] MEDS: DOCUSATE SODIUM 50 MG/SENNA 8.6 MG TAB PO SCH (09:00)
[2016-09-27] MEDS: SODIUM CHLORIDE 0.9% FLUSH 10 ML FLUSH IV FLUSH SCH (09:20)
[2016-09-27] MEDS: CARVEDILOL 12.5 MG TAB PO SCH (09:21)
[2016-09-27] MEDS: FUROSEMIDE 40 MG TAB PO SCH (09:21)
[2016-09-27 12:00] VITALS: BP 112/51; PULSE 70; RESP 20; TEMP 96; O2SAT 93
--- NOTE | 2016-09-27 13:04 | HHI.FF ---
Face to Face Verification Diagnosis: (1) Exertional dyspnea (2) CHF (congestive heart failure) (3) Chronic atrial fibrillation (4) Hypertension (5) Acute kidney injury (6) Bilateral pleural effusion (7) Elevated INR Physical Therapy Order: Evaluate and Treat Occupational Therapy Order: Evaluate and Treat, Gross motor coordination Home Health Nursing Order: Medical education Medication education-adverse effect Instructions: Marsha INR Check up and send report to PCP. I have seen patient Mariella Chirinos on 09/27/16. My clinical findings support the need for the requested home health care services because: Ltd mobility - disease progression Limited ability to care for self High risk of falls I certify that my clinical findings support that this patient is homebound because: Unsteady gait/balance Unsafe to leave home unassisted Unable to use public transportation Zeferino Muniz MD Sep 27, 2016 13:04
--- NOTE | 2016-10-01 09:06 | MD ---
cc: ZEFERINO COY MD ADMISSION DATE: 09/23/2016 DISCHARGE DATE: 09/27/2016 Okay to discharge the patient. CONDITION AT THE TIME OF DISCHARGE Satisfactory ACTIVITY As tolerated. DIET: Cardiac diet ALLERGIES: AMLODIPINE DISCHARGE MEDICATIONS Include: 1. Simbrinza ophthalmic drops 1-0.2% suspension 1 drop right eye twice a day 2. Carvedilol 12.5 mg twice a day. 3. Vitamin D 1000 units daily. 4. Fosamax 40 mg twice a day. 5. Hydralazine 10 milligrams t.i.d. 6. Latanoprost ophthalmic drop 0.005%, one drop in each eye hs. 7. Lisinopril 20 milligrams twice a day. 8. Multivitamin p.o. daily 9. Protonix 40 milligrams daily. 10. Potassium chloride 10 milliequivalents twice a day. 11. Coumadin 2 milligrams p.o. daily The patient advised to check INR with primary care doctor as she was doing before. Patient advised to follow with cardiology, nephrology and primary care doctor. ADMISSION DIAGNOSIS 1. Hyponatremia, improved. Nephrology has seen the patient. 2. Acute on chronic diastolic heart failure. 3. History of hypertension. 4. History of hyperlipidemia. 5. History of peripheral arterial disease. 6. History of bilateral carotid endarterectomy and renal artery angioplasty. 7. History of symptomatic bradycardia. 8. Atrial fibrillation. 9. Mild to moderate mitral regurgitation. 10. Anemia. 11. Hyperkalemia which has resolved. 12. History of glaucoma. HOSPITAL COURSE This is an 89-year-old female admitted with decreased urinary output, diagnosed with acute renal failure. Nephrology saw the patient during the hospital stay. The patient has stage III chronic kidney disease, baseline creatinine 1.1. The patient remained stable during the hospital stay. The patient discharged in satisfactory condition. The patient appeared to have chronic SIADH. Sodium level has been improved. The patient was given one dose of Tolvapten. Patient advised to restrict fluids, avoid salt due to concern of congestive heart failure. The patient urinalysis was normal. The patient had a sodium of 125 at the time of admission. At the time of discharge 129. The patient had creatinine of 2.1 at the time of admission, at the time of discharge it was 1.5. The patient also had hypoalbuminemia with an albumin of 3.1. Total bilirubin was 1.6. Magnesium was 2.1. Phosphorus was 3.7. The patient had supratherapeutic INR 9.6 at the time of admission. At the time of discharge it was 2.1. The patient had anemia with a hemoglobin of 10.0 which is baseline. The patient's lower extremity ultrasound done shows no evidence of DVT. Renal ultrasound done shows small amount of right upper quadrant ascites 9 mm simple renal cyst. Chest x-ray done shows findings suggestive of bilateral pleural effusion and possible known consolidative lower lobe infiltrate. Further details in the medical record. Zeferino Coy MD EA/PRISCILA /12:36 PM /5:34 AM
== END 2016-09-27 14:10 | disposition home or self-care (01) | DRG 291 ==
LOC: PHED 15:34 → PHEDA 18:58 → PH3B 20:59
PROVIDERS: ADMIT Family Medicine; ATTEND Family Medicine
DX: I13.0 Hypertensive heart and chronic kidney disease with heart failure and stage 1 through stage 4 chronic kidney disease, or unspecified chronic kidney disease (principal); I50.33 Acute on chronic diastolic (congestive) heart failure; N17.9 Acute kidney failure, unspecified; E22.2 Syndrome of inappropriate secretion of antidiuretic hormone; I27.2 Other secondary pulmonary hypertension; E87.5 Hyperkalemia; J98.11 Atelectasis; I48.2 Chronic atrial fibrillation; E78.5 Hyperlipidemia, unspecified; Z85.828 Personal history of other malignant neoplasm of skin; Z95.0 Presence of cardiac pacemaker; N18.3 Chronic kidney disease, stage 3 (moderate); R79.1 Abnormal coagulation profile; Z79.01 Long term (current) use of anticoagulants; I73.9 Peripheral vascular disease, unspecified; D64.9 Anemia, unspecified; H40.9 Unspecified glaucoma; M19.90 Unspecified osteoarthritis, unspecified site; I08.1 Rheumatic disorders of both mitral and tricuspid valves; E66.9 Obesity, unspecified; R19.7 Diarrhea, unspecified
CPT/HCPCS: 71010; 76775; 80048; 80053; 80069; 81001; 82550; 82552; 83735; 83880; 83935; 84484; 84550; 85025; 85610; 85730; 93005; 93970; 96372; J1940; J3430